=== PATIENT | male | born 1940 | race Caucasian/White ===

== ENCOUNTER 2019-11-22 07:15 | Outpatient (CLI) | payer MEDICARE, SELFPAY ==
[2019-11-22 08:17] LABS: Basophils Percent Auto 0.3 % (0.2-1.2); Eosinophils Absolute Auto 0.1 K/mm3 (0-0.3); Eosinophils Percent Auto 0.7 % (0-4.4); Hematocrit 37.3 % (42.0-52.0); Hemoglobin 11.8 g/dL (14.0-18.0); Immature Granulocyte Absolute 0.19 K/mm3 (0.00-0.031); Lymphocytes Absolute Auto 1.86 K/mm3 (0.9-3.2); Lymphocytes Percent Auto 19.6 % (18.3-44.2); Mean Corpuscular HGB Conc 31.6 g/dl (32-36); Mean Corpuscular Hemoglobin 31.3 pg (26-34); Mean Corpuscular Volume 98.9 fl (80-100); Mean Platelet Volume 10.3 fl (7.4-10.4); Monocytes Absolute Auto 0.7 K/mm3 (0.1-0.6); Monocytes Percent Auto 7.7 % (2.6-8.5); Neutrophils Absolute Auto 6.6 K/mm3 (1.3-6.7); Neutrophils Percent Auto 69.7 % (45.5-73.1); Platelet Count Result 171 k/mm3 (150-375); Red Blood Count 3.77 M/mm3 (4.6-6.20); Red Cell Distribution Width 15.2 % (11.5-14.5); White Blood Count 9.5 K/mm3 (4.5-10.0)
[2019-11-22 08:20] LABS: Add Urine Microscopic? NO; Appearance Urine Clear (Clear); Bilirubin Urine Negative (Negative); Blood Urine Negative (Negative); Color Urine Straw (Yellow); Glucose Urine UA Negative (Negative); Ketones Urine Negative (Negative); Leukocyte Esterase Ur Negative LEU/UL (Negative); Nitrate Urine Negative (Negative); Protein Urine Negative (Negative); Specific Grav Ur 1.014 (1.001-1.035); Urobilinogen Urine Negative mg/dL (<2.0)
[2019-11-22 08:34] LABS: Alanine Aminotransferase 20 U/L (4-50); Albumin Level 3.7 g/dL (3.5-5.1); Alkaline Phosphatase 90 U/L (38-126); Aspartate Amino Transferase 23 U/L (17-59); Bilirubin,Total 0.4 mg/dL (0.2-1.3); Blood Urea Nitrogen 29 mg/dL (9-20); Calcium 8.6 mg/dL (8.4-10.2); Carbon Dioxide 30 mmol/L (22-30); Chloride 97 mmol/L (98-107); Cholesterol 143 mg/dL (0-200); Estimated Glomerular Filt Rate 54; Glucose 107 mg/dL (75-110); HDL Direct 33 mg/dL; Phosphorus 3.7 mg/dL (2.5-4.5); Potassium 3.9 mmol/L (3.4-5.0); Sodium 140 mmol/L (137-145); Triglycerides 205 mg/dL (<150); Uric Acid 6.9 mg/dL (3.5-8.5)
[2019-11-22 08:41] LABS: Erythrocyte Sedimentation Rate 76 mm/hr (0-20)
[2019-11-22 08:45] LABS: LDL Cholesterol Direct 81 mg/dL
[2019-11-22 08:51] LABS: Creatinine Urine 57.7 mg/dL
[2019-11-22 08:55] LABS: MALB Creatinine Ratio 104.9 mg/g (0-30); Microalbumin Urine Random 60.5 mg/L (0-16.7)
[2019-11-22 09:07] LABS: Free T4 Free Thyroxine 0.74 ng/mL (0.78-2.19); Vitamin D 25 Hydroxy 56.3 ng/mL
[2019-11-22 09:37] LABS: Parathyroid Intact 51.1 pg/mL (7.5-53.5)
[2019-11-22 09:43] LABS: Folic Acid > 20.0 ng/mL (2.76->20)
== END 2019-11-22 07:16 | disposition home or self-care (01) ==
PROVIDERS: PCP Internal Medicine
DX: I12.9 Hypertensive chronic kidney disease with stage 1 through stage 4 chronic kidney disease, or unspecified chronic kidney disease (principal); D64.9 Anemia, unspecified; Z12.5 Encounter for screening for malignant neoplasm of prostate; N18.3 Chronic kidney disease, stage 3 (moderate); R60.9 Edema, unspecified; E55.9 Vitamin D deficiency, unspecified; N39.0 Urinary tract infection, site not specified; R73.09 Other abnormal glucose
CPT/HCPCS: 36415; 80053; 80061; 81003; 82043; 82306; 82607; 82746; 83036; 83970; 84100; 84439; 84443; 84550; 85025; 85652

== ENCOUNTER 2019-11-23 10:46 | Outpatient (CLI) | payer MEDICARE, SELFPAY ==
--- NOTE | ~2019-11-23 | XR_ITS ---
XR hand RT min 3V, XR hand LT min 3V 11/23/2019 11:38 Indication: Hand pain Procedure: 3 views of each hand Comparison: No prior studies for comparison. Findings: There is moderate polyarticular osteoarthritis of both hands. Osteopenia. No fracture or tr aumatic malalignment. No significant soft tissue abnormality. Impression: 1: Moderate polyarticular osteoarthritis. Reviewed, dictated and finalized at location B. [employer] Impression: 1: Moderate polyarticular osteoarthritis. Impression: 1: Moderate polyarticular osteoarthritis.
--- NOTE | ~2019-11-23 | MR_ITS ---
EXAMINATION: MR lumbar spine wo con DATE: 11/23/2019 11:37 INDICATION: Low back pain and bilateral hip pain TECHNIQUE: Magnetic resonance imaging (MRI) of the lumbar spine was performed without intravenous con trast. Sequences included sagittal T2-weighted FSE, sagittal T2-weighted FS FSE, sagittal T1-weighted FSE, and axial T2-weighted FSE. COMPARISON: Lumbar spine radiographs dated 08/13/2019 FINDINGS: 2 mm anterolisthesis L5 with respect to both L4 and S1. No associated pars interarticularis defect. C hronic L1 burst fracture with 3 mm retropulsion and 50% vertebral body height loss. There is mild linh ear increased T2 signal along the anterior two thirds of the depressed superior endplate which could represent more subacute progression. Remaining vertebral body heights are normal with otherwise amira l bone marrow signal. There is ballooning of the T12-L1 disc space. Moderate disc height loss at L5-S 1. Annular fissure at L4-L5 with relatively preserved disc height. The conus medullaris terminates at L1. There is normal signal in the caudal spinal cord. There is marrow edema at the left sacral ala a long a partially visualized now subacute to early chronic nondisplaced fracture which was noted on CT dated 09/28/2019. Mild bilateral renal atrophy. Paravertebral soft tissues are unremarkable. The follo wing disc levels are specifically discussed: T12-L1: Disc is mildly bulging. There is mild bilateral facet joint osteoarthritis. There is no neura l foraminal stenosis. There is mild central canal stenosis at the level of the disc bulge as well as more caudally at the level of the mild retropulsion of L1. L1-L2: Disc is bulging. There is hypertrophy of the ligamentum flavum. There is mild bilateral facet joint osteoarthritis. There is no neural foraminal stenosis. There is mild central canal stenosis. L2-L3: Disc is bulging. There is hypertrophy of the ligamentum flavum. There is mild bilateral facet joint osteoarthritis. There is mild bilateral neural foraminal stenosis. There is mild central canal stenosis. L3-L4: Disc is mildly bulging. There is hypertrophy of the ligamentum flavum. There is mild bilateral facet joint osteoarthritis. There is mild bilateral neural foraminal stenosis. There is mild central canal stenosis. L4-L5: Disc is mildly bulging with superimposed left paracentral annular fissure and disc protrusion. There is hypertrophy of the ligamentum flavum. There is mild left and mild to moderate right facet j oint osteoarthritis. There is mild right and moderate left neural foraminal stenosis. There is mild c entral canal stenosis along with narrowing of the lateral recesses, left greater than right. L5-S1: Broad-based disc extrusion with with disc material extending a few millimeters cephalad to the level of the inferior endplate of L5 from foraminal zone to foraminal zone. More focal posterior scarlett tral disc extrusion versus sequestered disc fragment extending up to 13 mm cephalad to the level of t he inferior endplate of L5 and measuring up to 11 x 7 mm in transaxial dimensions. There is moderate bilateral facet joint osteoarthritis. There is moderate bilateral neural foraminal stenosis. There is mild central canal stenosis along with mild narrowing of the left and right lateral recesses.. IMPRESSION: 1. Chronic L1 burst fracture, possibly with subacute progression of depression of the superior endpla te. 2. Subacute to early chronic nondisplaced fracture of the left sacral ala which appeared acute on CT dated 09/28/2019. 3. Mild to moderate lower lumbar predominant spondylosis. Reviewed, dictated and finalized at location A. [employer]
== END 2019-11-23 10:47 | disposition home or self-care (01) ==
LOC: ANHIMG 10:50
PROVIDERS: PCP Internal Medicine; Visit Provider Nurse Practitioner Family
DX: M19.041 Primary osteoarthritis, right hand (principal); M19.042 Primary osteoarthritis, left hand; M47.896 Other spondylosis, lumbar region
CPT/HCPCS: 72148; 73130

== ENCOUNTER 2020-02-08 10:47 | Inpatient (IN) | payer MEDICARE, SELFPAY ==
[2020-02-08] VITALS (45 sets, daily range): BP systolic 75–121; BP diastolic 46–84; PULSE 85–137; RESP 11–27; TEMP 36.3–36.9; O2SAT 88–100
--- NOTE | 2020-02-08 | ECHO_ITS ---
Patient Info Name: Art Sousa Age: 79 years : 1940 Gender: Male Ht: 72 in Wt: 200 lbs BSA: 2.16 m2 HR: 125 bpm BP: 98 / 71 mmHg Heart Rhythm: Tachycardia Technical Quality: Good Exam Date: 02/08/2020 3:59 PM Exam Location: [facility] Patient Status: Inpatient Admit Date: 02/08/2020 Staff Ordering Physician: Ion Maharaj MD Supervisor [employer]: Roque Reyes RDCS Attending Provider: Elder Keys MD Exam Type: CA echo doppler color flow Study Info Indications I21.4 - Non-ST elevation (NSTEMI) myocardial infarction Complete two-dimensional, color flow and Doppler transthoracic echocardiogram is performed. History/Risk Factors NSTEMI w/ CAD s/p 3vCABG \R\20years ago; CHF, CKD34, HTN, Afib. Summary 1. Left ventricular chamber dimension is normal. 2. Left ventricular systolic function is mildly reduced, estimated at 45-50%. 3. There is moderately increased left ventricular wall thickness. 4. The left ventricular diastolic function is abnormal. 5. The inferior wall, basal inferoseptal, and mid inferoseptal are akinetic. 6. All other naik appear normal. 7. Right ventricular chamber dimension is moderately enlarged. 8. Right ventricular systolic function is reduced. 9. Left atrial chamber dimension is mildly enlarged. 10. Right atrial chamber dimension is mildly enlarged. 11. 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 12. There is mild to moderate mitral valve regurgitation. 13. There is mild tricuspid valve regurgitation. 14. Mild pulmonary hypertension, estimated pulmonary arterial systolic pressure is 35 mmHg. Left Ventricle Left ventricular chamber dimension is normal. Left ventricular systolic function is mildly reduced, estimated at 45-50%. There is moderately increased left ventricular wall thickness. The left ventricular diastolic function is abnormal. The inferior wall, basal inferoseptal, and mid inferoseptal are akinetic. All other naik appear normal. Right Ventricle Right ventricular chamber dimension is moderately enlarged. Right ventricular systolic function is reduced. Left Atria Left atrial chamber dimension is mildly enlarged. Right Atria Right atrial chamber dimension is mildly enlarged. Atrial Septum Intact interatrial septum visualized by color flow imaging. 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 There is trace regurgitation of the TAVR aortic valve. Pulmonic Valve The pulmonic valve is normal. There is no pulmonic valve stenosis. There is trace pulmonic regurgitation. Mitral Valve The mitral valve has calcified annulus. There is no mitral valve stenosis. There is mild to moderate mitral valve regurgitation. Tricuspid Valve The tricuspid valve leaflets are normal. There is no significant tricuspid valve stenosis. There is mild tricuspid valve regurgitation. Mild pulmonary hypertension, estimated pulmonary arterial systolic pressure is 35 mmHg. Pericardium/Pleural The pericardium appears normal. There is no pericardial effusion. Inferior Vena Cava Dilated inferior vena cava with >50% collapse upon inspiration consistent with elevated right atrial pressure, 10 mmHg. Aorta The aortic root size at the sinus of Valsalva is normal. The prox ascending aorta size is normal.
--- NOTE | ~2020-02-08 | XR_ITS ---
XR chest 1V portable DATE: 02/08/2020 11:42 INDICATION: Chest pain TECHNIQUE: Portable AP chest views on 02/08/2020 1140 hours COMPARISON: 08/15/2019 AP and lateral chest FINDINGS: Status post sternotomy and cardiac valve replacement. Heart size is normal. There is aortic calcification and unfolding. There is discoid atelectasis or scarring and mild infiltrate in the left lower lung. There is volume loss of the left lung compared to the right and 08/15/2019 examination. The right lung is clear. Ther e is bilateral apical capping. Surgical clips overlie the cervical area bilaterally. IMPRESSION: Discoid scarring, atelectasis and/or infiltrate in the left lower lung Reviewed, dictated and finalized at location A. IMPRESSION: Discoid scarring, atelectasis and/or infiltrate in the left lower l acosta
--- NOTE | ~2020-02-08 | CT_ITS ---
EXAMINATION: CT brain wo con DATE: 02/08/2020 11:22 INDICATION: Generalized weakness. Confusion. TECHNIQUE: Computed tomography (CT) of the head was performed without intravenous contrast. The mA wa s adjusted according to patient size. Iterative reconstruction technique was employed. The dose-lengt h product was 681.00 mGy-cm. COMPARISON: Head CT 09/28/2019 FINDINGS: There are scattered areas of low attenuation in the cerebral white matter, which is within normal limits for the patient's age. There is an old lacunar infarct in left caudate nucleus. There i s no intracranial hemorrhage, acute infarction, or abnormal intracranial mass lesion. The ventricles are normal in size. The paranasal sinuses are clear. There are likely changes of ocular lens replacem ent surgeries. The mastoid air cells are normal. IMPRESSION: 1. Old lacunar infarct in left caudate nucleus. Reviewed, dictated and finalized at location E.
--- NOTE | 2020-02-08 11:02 | ECG_ITS ---
Measurements Intervals [place] Rate: 94 P: NM: 0 QRS: -68 QRSD: 155 T: 17 QT: 434 QTc: 545 Interpretive Statements ATRIAL FIBRILLATION RIGHT BUNDLE BRANCH BLOCK LEFT ANTERIOR FASCICULAR BLOCK ABNORMAL ECG Electronically Signed On 02-08-2020 11:31:58 CDT by Devin Hudson D.O.
--- NOTE | 2020-02-08 11:37 | ED.WEAKNESS ---
HPI - Weakness General Chief complaint: Weakness <Leilani Mayo PA-C - Last Filed: 02/08/20 19:03> Stated complaint: WEAKNESS <FILIPPO Brown Last Filed: 02/08/20 19:03> Time Seen by Provider: 02/08/20 11:29 <FILIPPO Brown Last Filed: 02/08/20 19:03> Source: patient <FILIPPO Brown Last Filed: 02/08/20 19:03> Mode of arrival: EMS <FILIPPO Brown Last Filed: 02/08/20 19:03> Limitations: clinical condition <FILIPPO Brown Last Filed: 02/08/20 19:03> History of Present Illness HPI Narrative: This is a 79 year old male that presents to the ER for chest pain x 1 hour. Per daughter patient was discharged from rehab facility yesterday after a fall. Reports he was able to get around with little assistance and was much improved. This morning patient became weak and lethargic. He complaints of chest pain and generalized weakness. Also complains of some low back pain due to a fracture in his low back. Denies fever, shortness of breath, abdominal pain, nausea or vomiting. <FILIPPO Brown Last Filed: 02/08/20 19:03> Related Data Home medications: Home Medications Medication Instructions Recorded Confirmed acetaminophen [Tylenol] 650 mg PO Q12H 02/08/20 02/08/20 atorvastatin 20 mg PO DAILY 02/08/20 02/08/20 ergocalciferol (vitamin D2) 1,250 mcg PO WEEKLY 02/08/20 02/08/20 [Vitamin D2] fenofibrate nanocrystallized 48 mg PO QPM 02/08/20 02/08/20 fludrocortisone 0.1 mg PO Q12H 02/08/20 02/08/20 hydrocodone-acetaminophen 1 tablet PO QID PRN 02/08/20 02/08/20 levothyroxine 25 mcg PO 0630 02/08/20 02/08/20 losartan 25 mg PO DAILY 02/08/20 02/08/20 megestrol 20 mg PO DAILY 02/08/20 02/08/20 potassium chloride 20 meq PO DAILY 02/08/20 02/08/20 propranolol 20 mg PO TID 02/08/20 02/08/20 <Leilani Mayo PA-C - Last Filed: 02/08/20 19:03> Allergies/Adverse reactions: Allergies Allergy/AdvReac Type Severity Reaction Status Date / Time Penicillins Allergy Unknown Rash Verified 02/08/20 11:44 <Leilani Mayo PA-C - Last Filed: 02/08/20 19:03> Review of Systems Review of Systems: Narrative: CONSTITUTIONAL: Denies fever ENT: Denies rhinorrhea, congestion, sore throat CARDIOVASCULAR: Reports chest pain. Denies palpitations, or edema. RESPIRATORY: Denies cough or dyspnea. GASTROINTESTINAL: Denies abdominal pain, nausea, vomiting GENITOURINARY: Denies dysuria or hematuria. MUSCULOSKELETAL: Reports back pain, joint pain, and myalgia. NEUROLOGIC: Reports weakness. Denies headache, numbness <FILIPPO Brown Last Filed: 02/08/20 19:03> All systems reviewed & are unremarkable except as noted in HPI and below <Leilani Mayo PA-C - Last Filed: 02/08/20 19:03> [facility] Past Medical History Medical History: Medical History Angina at rest Arthritis CAD (coronary artery disease) of artery bypass graft Cataracts, bilateral CHF (congestive heart failure) Chronic renal failure, stage 4 (severe) GERD (gastroesophageal reflux disease) GI bleed Gout Hyperchloremia Hyperlipidemia Hypertension Kidney stone Normal colonoscopy Sinus trouble Skin cancer <FILIPPO Brown Last Filed: 02/08/20 19:03> Surgical History Surgical History: Surgical History History of cardiac cath History of removal of pigmented skin lesion History of total replacement of both hip joints Hx of CABG 3 vessel S/P aortic valve replacement Stented coronary artery Multiple stents <FILIPPO Brown Last Filed: 02/08/20 19:03> Family History Family History: Family History Father Cerebrovascular accident Patient's father is Acute myocardial infarction Mother Family history of malignant neoplasm of ovary Patient's mother is
--- NOTE | 2020-02-08 11:37 | PC.NURSE ---
Talked to daughter Tracey on the phone. She states she is unsure of his code status and believes his 83 year old sister Sis is his POA. She states she will find out and call the ED back
[2020-02-08 11:41] LABS: Basophils Percent Auto 0.4 % (0.2-1.2); Eosinophils Absolute Auto 0.2 K/mm3 (0-0.3); Eosinophils Percent Auto 2.3 % (0-4.4); Hematocrit 30.7 % (42.0-52.0); Hemoglobin 9.6 g/dL (14.0-18.0); Immature Granulocyte Absolute 0.08 K/mm3 (0.00-0.031); Immature Granulocyte Percent A 0.9 % (0-0.5); Lymphocytes Absolute Auto 1.81 K/mm3 (0.9-3.2); Lymphocytes Percent Auto 20.2 % (18.3-44.2); Mean Corpuscular HGB Conc 31.3 g/dl (32-36); Mean Corpuscular Hemoglobin 30.7 pg (26-34); Mean Corpuscular Volume 98.1 fl (80-100); Mean Platelet Volume 10.1 fl (7.4-10.4); Monocytes Absolute Auto 0.7 K/mm3 (0.1-0.6); Monocytes Percent Auto 7.3 % (2.6-8.5); Neutrophils Absolute Auto 6.2 K/mm3 (1.3-6.7); Neutrophils Percent Auto 68.9 % (45.5-73.1); Platelet Count Result 238 k/mm3 (150-375); Red Blood Count 3.13 M/mm3 (4.6-6.20); Red Cell Distribution Width 16.3 % (11.5-14.5); White Blood Count 8.9 K/mm3 (4.5-10.0)
[2020-02-08 11:53] LABS: Alanine Aminotransferase 11 U/L (4-50); Albumin Level 2.9 g/dL (3.5-5.1); Alkaline Phosphatase 84 U/L (38-126); Aspartate Amino Transferase 102 U/L (17-59); Bilirubin,Total 0.9 mg/dL (0.2-1.3); Blood Urea Nitrogen 19 mg/dL (9-20); Calcium 8.8 mg/dL (8.4-10.2); Carbon Dioxide 31 mmol/L (22-30); Chloride 103 mmol/L (98-107); Estimated CRCL calculation 28 ml/min; Estimated Glomerular Filt Rate 29; Glucose 98 mg/dL (75-110); Potassium 3.1 mmol/L (3.4-5.0); Sodium 139 mmol/L (137-145)
[2020-02-08] MEDS: ASPIRIN 81 MG CHEWABLE TABLET 324 MG (12:21)
[2020-02-08] MEDS: METOPROLOL TARTRATE INJ 5 MG/5 ML VIAL (12:21)
[2020-02-08 12:32] LABS: Lactic Acid Reflex 1.3 mmol/L (0.7-2.1)
--- NOTE | 2020-02-08 12:36 | PC.NURSE ---
Called daughter Chanel to update her on fathers condition. Let her know that he needed to be taken to the floating labor gang supervisor per cardiology MD and obtained consent over the phone with the micro lab analyst RN. VSS and awake on departure from unit. Daughter states that his sister Sis has POA paperwork and DNR paperwork for pt. She will bring it to the hospital when she can. She understands that he will remain a full code while in the micro lab analyst until he is transferred to the ICU. She had no further questions at this time.
--- NOTE | 2020-02-08 13:53 | ECG_ITS ---
Measurements Intervals [place] Rate: 136 P: -70 [place]: 187 QRS: -79 QRSD: 149 T: 78 QT: 274 QTc: 413 Interpretive Statements ATRIAL FIBRILLATION WITH RAPID VENTRICULAR RESPONSE LEFT AXIS DEVIATION RIGHT BUNDLE BRANCH BLOCK LEFT ANTERIOR FASCICULAR BLOCK ST DEPRESSION IN SEPTAL LEADS- CONSIDER ACUTE POSTERIOR INFARCT ABNORMAL ECG Electronically Signed On 02-09-2020 7:31:17 CDT by Devin Hudson D.O.
--- NOTE | 2020-02-08 14:08 | WPDCARDPROC ---
Cardiac Cath Procedure Note Date of procedure:: 02/08/20 Performing physician:: Elder Keys MD Indication:: chest pain, acute posterior infarction Brief clinical history:: this is a 79-year-old patient who has a longstanding history of coronary disease undergoing surgical revascularization 20 years ago. Since then he has had a series of percutaneous interventions including left main stenting, mid circumflex stenting, stenting of his RCA saphenous vein graft. He was previously followed by our practice and has not been seen by our practice for a number of years. He has a history of aortic valve stenosis which was moderate the time of his last evaluation here at [facility]. The patient began to experience ischemic chest pain about 60-90 minutes he says before coming into the hospital today where his ECG demonstrates right bundle branch block which is chronic as well as severe precordial ST depression indicative of acute posterior injury L also he has atrial fibrillation when previous ECGs demonstrate sinus rhythm. Procedure Procedure performed:: Emergency coronary angiography emergency vein graft angiography emergency rahman graft angiography attempted PCI to right coronary vein graft Sedation/Medication given:: no sedation Access site:: right femoral artery Estimated blood loss:: 20-30 cc Procedure note:: patient was brought to the catheterization lab in the urgent setting as described above from the emergency department. The femoral triangles were prepped and draped in the usual fashion. Anesthesia was provided with 1% lidocaine infiltrated locally after this a 6 Prydeinig vascular sheath was placed using the modified Seldinger technique. Following this a 5 Prydeinig FL4 catheter was used to engage inject the left coronary artery in multiple projections. The JR4 catheter was used to inject the right coronary artery as well as the vein grafts. This was unsuccessful. The right coronary artery is known to be chronically occluded from previous angiography and appears to be behind the cage of the previously placed TAVR valve. We have no records or knowledge of the TAVR procedure. Following this I used a multipurpose catheter to inject the right coronary and circumflex vein grafts. The NADEEN catheter was used to non selectively inject the left subclavian artery studying the low flow in the left mammary graft. Following this attention was turned to the right coronary vein graft as detailed below. Prior to attempted PCI the patient received intravenous Angiomax bolus and infusion and received intravenous Integrilin bolus and infusion. Following attempted but unsuccessful PCI of the right coronary graft I switched the sheath O2 a 6 Prydeinig long sheath because of poor arterial flow in the sheath and then sutured it into position. The Angiomax and Integrilin were turned off as the PCI was unsuccessful. Patient was taken to ICU for recovery of this. There were no procedural complications that were apparent. Findings:: The left main coronary artery is a medium in caliber there is visible stent material in the left main it is mildly diffusely diseased throughout but does not appear to have any flow-limiting stenosis. The LAD is a small diffusely diseased artery that is patent into 2 small diseased diagonal branches. Following this there is competitive flow seen in the mid to distal LAD from the RAHMAN graft The circumflex is a medium caliber diffusely diseased artery there is mid stent material visible in the circumflex. There is mild diffuse disease throughout the circumflex but no significant flow-limiting disease. Saphenous vein graft to the circumflex is 100% occluded at its origin, known to be a chronic total occlusion saphenous vein graft to the right coronary artery is 100% occluded at its origin appears to be a more acute occlusion there is long area of previously deployed stent material in the proximal and distal segments of this graft. Again there is T
--- NOTE | 2020-02-08 14:22 | PM.IMHP ---
H&P: HPI History of Present Illness Chief complaint: NSTEMI Narrative: Art Sousa is a 79 year old male who has an extensive history of heart disease but who I have never been involved in his care in the past. I was called to the emergency room this afternoon because the patient presented with chest pain and the appearance of his electrocardiogram was suspicious for an acute posterior infarction. The patient is not a very good historian but states that he was at home in his usual state of health when suddenly the this morning he began to experience moderate to severe retrosternal chest pain that was concerning to him and his family. He was brought to the emergency room where his ECG shows atrial fibrillation, right bundle branch block and relatively intense precordial ST segment depression. Electrocardiograms that are in this hospital's records from up September of this year demonstrates sinus rhythm plus the right bundle branch block as well. The patient a response to questions appropriately but does seem to be very blunted in his a fact and not very informative at all in terms of the details of his previous history. Because of the acute ischemic chest pain and acute posterior infarction based on ECG he is being brought emergently in a short time to the cardiac catheterization lab for angiography and attempted revascularization Review of Systems Constitutional: Constitutional: Reports weakness Eyes: Eyes: Reports no additional eye complaints ENT: Reports system reviewed and no additional complaints, except as documented Cardiovascular: Cardiovascular: Reports as per HPI Respiratory: Respiratory: Reports dyspnea on exertion Gastrointestinal: Gastrointestinal: Reports no additional gastrointestinal complaints Musculoskeletal: Musculoskeletal: Reports no additional musculoskeletal complaints Integumentary/Breasts: Skin/Breast: Reports system reviewed and no additional complaints, except as docu Neurologic: Reports system reviewed and no additional complaints, except as documented [facility] Social History Social History Social History: Currently lives with his sister who is durable power assistant district attorney. He is . He had been living with a significant other in [place] but she has recently been diagnosed with terminal cancer. The patient decided to move back in with his sister as he is not able to take care for self. He designates himself to be a full code Smoking packs per day: 2 Smoking cigarettes per day: 40.0 Years smoked: 24 Smoking pack-years: 48.00 Smoking status: Former smoker Tobacco type: cigarettes Second hand tobacco smoke exposure: Yes Alcohol intake: former Substance use: never Substance use type: does not use Additional living arrangements comments: Sister Additional occupation/education comments: [employer] in [place] Gender identity (if verbalized by the patient): Male Spiritual care concerns: No Agree to blood products: Yes Meds Home Medications and Allergies Home Medications Medication Instructions Recorded Confirmed Type allopurinol 100 mg tablet 100 mg PO DAILY #30 tablet 09/15/19 09/28/19 Rx folic acid 1 mg tablet 1 mg PO DAILY #30 tablet 09/15/19 09/28/19 Rx gabapentin 100 mg capsule 100 mg PO TID #90 cap 09/15/19 09/28/19 Rx nitroglycerin 0.4 mg SUBLINGUAL Q5M PRN 09/29/19 09/29/19 History polyethylene glycol 3350 [Miralax] 17 g PO DAILY PRN 09/29/19 09/29/19 History prednisone 10 mg PO DAILY 09/29/19 09/29/19 History sodium bicarbonate 650 mg PO BID 09/29/19 09/29/19 History tramadol 50 mg PO Q6H PRN 09/29/19 09/29/19 History fludrocortisone 0.1 mg PO DAILY #30 tablet 10/04/19 Rx Allergies Allergy/AdvReac Type Severity Reaction Status Date / Time Penicillins Allergy Unknown Rash Verified 02/08/20 11:44 Vital Signs Vital Signs - 24 hr 02/08/20 10:56 02/08/20 11:37 02/08/20 12:00 Temperature 36
--- NOTE | 2020-02-08 14:54 | WPDCNINT ---
Assessment and Plan Assessment and plan (1) NSTEMI (non-ST elevated myocardial infarction): Code(s): I21.4 - Non-ST elevation (NSTEMI) myocardial infarction Status: Acute Assessment and Plan: patient has complicated history of coronary artery disease with multiple PCIs and CABG in the past presented with chest pain and elevated troponin likely had inferior non STEMI now status post unsuccessful PCI attempt to RCA ICU monitor dual antiplatelet therapy statin check echo (2) CAD (coronary artery disease): Code(s): I25.10 - Atherosclerotic heart disease of [place] coronary artery without angina pectoris Status: Acute Assessment and Plan: see above (3) Cerebrovascular disease: Code(s): I67.9 - Cerebrovascular disease, unspecified Status: Acute Assessment and Plan: patient will be on dual antiplatelet therapy and statin CT shows old CVA patient appears to have vascular dementia although does need further evaluation (4) Atrial fibrillation: Code(s): I48.91 - Unspecified atrial fibrillation Status: Acute Assessment and Plan: chronicity unknown rate controlled with beta-adwoa at this time may need continuous infusion on antiplatelet therapy cardiology plans to start anticoagulation tomorrow check echocardiogram (5) Aortic stenosis: Code(s): I35.0 - Nonrheumatic aortic (valve) stenosis Status: Acute Assessment and Plan: status post TAVR. details are not available echo pending (6) CKD (chronic kidney disease) stage 4, GFR 15-29 ml/min: Code(s): N18.4 - Chronic kidney disease, stage 4 (severe) Status: Acute Assessment and Plan: start IV fluids for renal protection from the contrast he received with cardiac catheterization continue p.o. bicarb (7) Hypokalemia: Code(s): E87.6 - Hypokalemia Status: Acute Assessment and Plan: replace with p.o. KCl (8) Gout: Code(s): M10.9 - Gout, unspecified Status: Chronic Assessment and Plan: continue PO allopurinol and prednisone p.r.n. analgesic Additional Plan DVT prophylaxis - start heparin from tomorrow patient has received anticoagulation today doing the procedure Code Status - Full Code Traffic Control Officer Consult Note Consult date: 02/08/20 Time Seen: 14:45 HPI: Art Sousa is a 79 year old male with with complicated past medical history of coronary disease status post multiple PCI, CABG, TAVR for aortic stenosis and bilateral carotid endarterectomy presented today to ED with chief complaint of chest pain. Patient is cognitively slow and is poor historian. in ED patient was diagnosed with non STEMI and atrial fibrillation. Patient was taken to [facility] where he had unsuccessful attempt of PCI to RCA. patient now admitted to ICU for further evaluation management. patient at this time denies any chest pain or any new complaints and only complaint he has is of chronic joint pains from his arthritis. he told me the chest pain was in the middle of his chest, 10/10 severe, no radiation, has resolved now, no aggravating or relieving factors at that time, and was associated with dizziness. Review of Systems Review of Systems: ROS unobtainable: Yes unobtainable due to medical condition (PATIENT IS CONFUSED AND UNABLE TO PROVIDE DETAILED HISTORY) PMFSH Past Medical History Medical History Angina at rest Arthritis CAD (coronary artery disease) of artery bypass graft Cataracts, bilateral CHF (congestive heart failure) Chronic renal failure, stage 4 (severe) GERD (gastroesophageal reflux disease) GI bleed Gout Hyperchloremia Hyperlipidemia Hypertension Kidney stone Normal colonoscopy Sinus trouble Skin cancer Surgical History Surgical History History of cardiac cath History of removal of pigment
--- NOTE | 2020-02-08 15:03 | ADMGEN ---
This patient, Art Sousa, was admitted to Intensive Care Unit-7. Patient/family oriented to hospital policies and general routines including ID bracelet, bed and alarms, visiting hours, pain management, procedures, bathroom and other care routines, personal items, smoking policy, room service/diet, and visiting hours. Valuables list has been completed. Information on how to activate the Rapid Response Team has been discussed. Patient/Family are encouraged to report perceived risks to care and to ask questions if they do not understand what they are told or what they should do.
[2020-02-08 15:33] LABS: Magnesium 1.9 mg/dL (1.6-2.3)
--- NOTE | 2020-02-08 17:06 | PC.NURSE ---
R GROIN DRESSING AND R PEDAL PULSE CHECK COMPLETED POST SHEATH REMOVAL; REPORT GIVEN TO TAMMY BROOKS;
[2020-02-08] MEDS: POTASSIUM CHLORIDE 20 MEQ TABLET 40 MEQ PO (19:52)
[2020-02-08] MEDS: SODIUM BICARBONATE TAB 650 MG TABLET PO (19:53)
[2020-02-08] MEDS: METOPROLOL TARTRATE 25 MG TABLET PO (19:53)
[2020-02-08] MEDS: SODIUM CHLORIDE 0.9% IV 1,000 ML 100 ML IV CONT (20:01)
[2020-02-09] VITALS (72 sets, daily range): BP systolic 61–130; BP diastolic 35–70; PULSE 26–122; RESP 13–27; TEMP 36.3–36.9; O2SAT 91–98; BMI 27.2
[2020-02-09] MEDS: METOPROLOL TARTRATE 25 MG TABLET PO (01:24)
--- NOTE | 2020-02-09 05:11 | ECG_ITS ---
Measurements Intervals [place] Rate: 93 P: -78 DC: 114 QRS: -64 QRSD: 156 T: 44 QT: 410 QTc: 512 Interpretive Statements SINUS RHYTHM RIGHT BUNDLE BRANCH BLOCK LEFT ANTERIOR FASCICULAR BLOCK ST DEPRESSION IN SEPTAL LEADS- CONSIDER ACUTE POSTERIOR INFARCT ST ELEVATION IN INFERIOR LEADS- CONSIDER ACUTE INJURY BASELINE ARTIFACT- I, II, AVR, AVL ABNORMAL ECG Electronically Signed On 02-09-2020 7:33:45 CDT by Devin Hudson D.O.
--- NOTE | 2020-02-09 05:26 | ECG_ITS ---
Measurements Intervals [place] Rate: 58 P: AL: 0 QRS: -61 QRSD: 152 T: -12 QT: 491 QTc: 484 Interpretive Statements SINUS BRADYCARDIA RIGHT BUNDLE BRANCH BLOCK LEFT ANTERIOR FASCICULAR BLOCK ST DEPRESSION IN SEPTAL LEADS- CONSIDER ACUTE POSTERIOR INFARCT ST ELEVATION IN INFERIOR LEADS- CONSIDER ACUTE INJURY BASELINE ARTIFACT- V5-V6 ABNORMAL ECG Electronically Signed On 02-09-2020 7:35:35 CDT by Devin Hudson D.O.
[2020-02-09 05:27] LABS: Hematocrit 26.9 % (42.0-52.0); Hemoglobin 8.3 g/dL (14.0-18.0); Mean Corpuscular HGB Conc 30.9 g/dl (32-36); Mean Corpuscular Hemoglobin 30.6 pg (26-34); Mean Corpuscular Volume 99.3 fl (80-100); Mean Platelet Volume 10.6 fl (7.4-10.4); Platelet Count Result 221 k/mm3 (150-375); Red Blood Count 2.71 M/mm3 (4.6-6.20); Red Cell Distribution Width 16.3 % (11.5-14.5); White Blood Count 8.4 K/mm3 (4.5-10.0)
[2020-02-09 05:36] LABS: Alanine Aminotransferase 11 U/L (4-50); Albumin Level 2.7 g/dL (3.5-5.1); Alkaline Phosphatase 81 U/L (38-126); Aspartate Amino Transferase 102 U/L (17-59); Bilirubin,Total 0.8 mg/dL (0.2-1.3); Blood Urea Nitrogen 21 mg/dL (9-20); Calcium 8.7 mg/dL (8.4-10.2); Carbon Dioxide 27 mmol/L (22-30); Chloride 108 mmol/L (98-107); Estimated CRCL calculation 36 ml/min; Estimated Glomerular Filt Rate 39; Glucose 99 mg/dL (75-110); Magnesium 1.9 mg/dL (1.6-2.3); Potassium 3.4 mmol/L (3.4-5.0); Sodium 140 mmol/L (137-145)
--- NOTE | 2020-02-09 05:53 | PC.NURSE ---
At 0521 Patient had a pause with Marked bradycardia in the 20's and 30's Patient was responsive yet drowsy. Also marked hypotension. 0.5mg of atropine was given. Patient Rebounded to 50's bradycardia. EKG given. Still marked hypotension. Dr. Quintanilla was notified. Patient is alert yet drowsy. Start dopamine at 3mcg/kg/min. Continue to monitor. 6am Lopressor held.
[2020-02-09] MEDS: DOPamine 400 MG/D5W 250 ML 400 MG/250 ML BAG 10.3 MG IV CONT (05:58)
[2020-02-09] MEDS: ATROPINE SULFATE 1 MG/10 ML SYRINGE 0.5 MG IV PUSH (05:58)
[2020-02-09] MEDS: SODIUM BICARBONATE TAB 650 MG TABLET PO ×2 (08:35→17:52)
[2020-02-09] MEDS: CLOPIDOGREL BISULFATE 75 MG TABLET PO (08:36)
[2020-02-09] MEDS: FLUDROCORTISONE ACETATE 0.1 MG TABLET PO (08:36)
[2020-02-09] MEDS: ASPIRIN 81 MG CHEWABLE TABLET PO (08:36)
[2020-02-09] MEDS: ROSUVASTATIN 10 MG TABLET 20 MG PO (08:36)
[2020-02-09] MEDS: predniSONE 10 MG TABLET PO (08:36)
[2020-02-09] MEDS: FOLIC ACID 1 MG TABLET PO (08:36)
[2020-02-09] MEDS: allopurinoL 100 MG TABLET PO (08:36)
--- NOTE | 2020-02-09 08:45 | WPDINTPN ---
Progress Note: A&P Assessment and Plan (1) Bradycardia: Code(s): R00.1 - Bradycardia, unspecified Status: Acute Assessment and Plan: patient had a long pause and followed by symptomatic junctional bradycardia. patient has been atrial fibrillation since yesterday patient was given a dose of atropine overnight and started on low-dose dopamine drip beta-adwoa has been stopped heart rate and blood pressure adequate at this time discussed with cardiology and dopamine stopped and will monitor at this time. if bradycardia recurs will resume dopamine and Cardiology will then plan to place permanent pacemaker tomorrow. continue telemetry monitoring in ICU replaced low normal potassium (2) NSTEMI (non-ST elevated myocardial infarction): Code(s): I21.4 - Non-ST elevation (NSTEMI) myocardial infarction Status: Acute Assessment and Plan: patient has complicated history of coronary artery disease with multiple PCIs and CABG in the past presented with chest pain and elevated troponin likely had inferior non STEMI now status post unsuccessful PCI attempt to RCA ICU monitor dual antiplatelet therapy statin pending echo (3) CAD (coronary artery disease): Code(s): I25.10 - Atherosclerotic heart disease of [place] coronary artery without angina pectoris Status: Acute Assessment and Plan: see above (4) Cerebrovascular disease: Code(s): I67.9 - Cerebrovascular disease, unspecified Status: Acute Assessment and Plan: patient will be on dual antiplatelet therapy and statin CT shows old CVA patient appears to have vascular dementia although does need further evaluation (5) Atrial fibrillation: Code(s): I48.91 - Unspecified atrial fibrillation Status: Acute Assessment and Plan: chronicity unknown rate controlled with beta-adwoa at this time may need continuous infusion on antiplatelet therapy anticoagulation held at this time as there may be need for permanent pacemaker placement pending echocardiogram (6) Aortic stenosis: Code(s): I35.0 - Nonrheumatic aortic (valve) stenosis Status: Acute Assessment and Plan: status post TAVR. details are not available echo pending (7) CKD (chronic kidney disease) stage 4, GFR 15-29 ml/min: Code(s): N18.4 - Chronic kidney disease, stage 4 (severe) Status: Acute Assessment and Plan: patient was started ont IV fluids for renal protection from the contrast he received with cardiac catheterization. he is off IV fluids now continue p.o. bicarb (8) Hypokalemia: Code(s): E87.6 - Hypokalemia Status: Acute Assessment and Plan: replace with p.o. KCl (9) Gout: Code(s): M10.9 - Gout, unspecified Status: Chronic Assessment and Plan: continue PO allopurinol and prednisone p.r.n. analgesic Additional Plan DVT prophylaxis - start heparin subcutaneous Code Status - Full Code Total Critical Care Time - 30 minutes Due to a high probability of clinically significant, life threatening deterioration, the patient required my highest level of preparedness to intervene emergently and I personally spent this critical care time directly and personally managing the patient. This critical care time included obtaining a history; examining the patient; pulse oximetry; ordering and review of studies; arranging urgent treatment with development of a management plan; evaluation of patient's response to treatment; frequent reassessment; and discussions with other providers. It was exclusive of separately billable procedures and treating other patients and teaching time. Please see Assessment and Plan section and the rest of the note for further information on patient assessment and treatment Subjective Date/time seen: 02/09/20 0845 Overnight events reviewed. patient had episode of sinus pause and junctional Samuel and r
--- NOTE | 2020-02-09 08:52 | PM.PNCARD ---
Progress Note: A&P Assessment and Plan (1) STEMI (ST elevation myocardial infarction): Code(s): I21.3 - ST elevation (STEMI) myocardial infarction of unspecified site Status: Acute Assessment and Plan: severe multivessel coronary artery disease with acute posterior inferior infarction due to occlusion of the right coronary vein graft which was known to be severely disease for many years having been stented on 2 occasions in the past in and 2010. Despite crossing the proximal occlusion this graft with the whisper wire and making a series of balloon inflations along its entire length there was no religious of any antegrade flow in the vessel. Mildly diseased but patent left main which has been stented in the past high-grade stenosis in the proximal LAD with patent RAHMAN graft to the mid to distal LAD. Mild diffuse disease throughout the circumflex which has also been stented in the past chronic total occlusion of the vein graft to the circumflex chronic total occlusion of the [place] right coronary artery. Continue statin. Unable to continue beta-adwoa because of sinus pauses. Unable to add JOSH-inhibitor because of low blood pressure. Ejection fraction estimated at 45%. continue aspirin Plavix. (2) Atrial fibrillation: Code(s): I48.91 - Unspecified atrial fibrillation Status: Acute Assessment and Plan: Currently in sinus rhythm. (3) Aortic stenosis: Code(s): I35.0 - Nonrheumatic aortic (valve) stenosis Status: Acute Assessment and Plan: Patient had TAVR in the past and echocardiogram shows normal functioning aortic valve. (4) Sinus pause: Code(s): I45.5 - Other specified heart block Status: Acute Assessment and Plan: Sinus pause of 5 seconds requiring atropine. Last metoprolol dosage 25 mg was at 1:00 a.m. this morning. patient was started on dopamine 4 micrograms. will hold the dopamine for now. if there is recurrence of pause,then consider pacemaker. Subjective Date/time seen: date of service:02/09/20 08:52 chief complaint: chest pain denies chest pain this morning. had a long pause of 5 seconds at 5:00 a.m. this morning. Currently in sinus rhythm. Review of Systems Constitutional: Constitutional: Denies chills, Denies fever(s) and Reports poor appetite Eyes: Eyes: Denies eye discharge, Denies loss of vision, Denies eye pain and Denies photophobia ENT: Denies dizziness, Denies epistaxis, Denies nasal congestion and Denies sore throat Cardiovascular: Cardiovascular: Denies chest pain, Denies syncope, Denies pedal edema, Denies leg edema, Denies palpitations, Denies dyspnea, Denies dyspnea on exertion and Denies orthopnea Respiratory: Respiratory: Denies cough, Denies dyspnea, Denies dyspnea on exertion and Denies wheezing Gastrointestinal: Gastrointestinal: Denies abdominal pain, Denies diarrhea, Denies nausea and Denies vomiting Genitourinary: Genitourinary: Denies hematuria, Denies genital lesions and Denies dysuria Musculoskeletal: Musculoskeletal: Denies arthralgias, Denies joint swelling and Denies numbness Integumentary/Breasts: Skin/Breast: Denies pruritus and Denies rash Neurologic: Denies dizziness, Denies syncope, Denies loss of vision and Denies numbness Psychiatric: Psychiatric: Denies anxiety and Denies depression Endocrine: Endocrine: Denies cold intolerance, Denies heat intolerance and Denies palpitations Hematologic/Lymphatic: Hematologic/Lymphatic: Denies easy bleeding and Denies easy bruising Allergic/Immunologic: Allergic/Immunologic: Denies urticaria and Denies wheezing Exam Const: General: cooperative, comfortable, no acute distress, alert and awake Nutritional Appearance: well nourished Orientation/consciousness: patient oriented x3 HENMT: Head: normal to inspection, normocephalic and atraumatic Ears: hearing grossly impaired General nose exam: Normal external nose present, Normal nares p
[2020-02-09] MEDS: POTASSIUM CHLORIDE 20 MEQ TABLET 40 MEQ PO (14:32)
[2020-02-09] MEDS: SODIUM CHLORIDE 0.9% IV 1,000 ML 75 ML IV CONT (17:52)
--- NOTE | 2020-02-09 19:00 | PC.NURSE ---
Patient bladder scanned at 1430. Scan showed 352mL. Patient urinated 150mL and post void bladder scan was 227mL. Jo Pruitt made aware and started IV fluids for patient.
[2020-02-10] VITALS (19 sets, daily range): BP systolic 87–143; BP diastolic 48–87; PULSE 38–57; RESP 14–24; TEMP 36.4–36.7; O2SAT 9–99
[2020-02-10 04:56] LABS: Hematocrit 24.4 % (42.0-52.0); Hemoglobin 7.6 g/dL (14.0-18.0); Mean Corpuscular HGB Conc 31.1 g/dl (32-36); Mean Corpuscular Hemoglobin 30.4 pg (26-34); Mean Corpuscular Volume 97.6 fl (80-100); Mean Platelet Volume 10.2 fl (7.4-10.4); Platelet Count Result 180 k/mm3 (150-375); Red Cell Distribution Width 16.5 % (11.5-14.5)
[2020-02-10 05:05] LABS: Alanine Aminotransferase 13 U/L (4-50); Albumin Level 2.9 g/dL (3.5-5.1); Alkaline Phosphatase 81 U/L (38-126); Aspartate Amino Transferase 70 U/L (17-59); Bilirubin,Total 0.6 mg/dL (0.2-1.3); Blood Urea Nitrogen 25 mg/dL (9-20); Calcium 8.5 mg/dL (8.4-10.2); Carbon Dioxide 27 mmol/L (22-30); Chloride 109 mmol/L (98-107); Estimated CRCL calculation 32 ml/min; Estimated Glomerular Filt Rate 35; Glucose 113 mg/dL (75-110); Potassium 3.7 mmol/L (3.4-5.0); Sodium 140 mmol/L (137-145)
[2020-02-10] MEDS: SODIUM CHLORIDE 0.9% IV 1,000 ML 75 ML IV CONT ×2 (06:28→20:16)
[2020-02-10] MEDS: ASPIRIN 81 MG CHEWABLE TABLET PO (09:47)
[2020-02-10] MEDS: CLOPIDOGREL BISULFATE 75 MG TABLET PO (09:48)
[2020-02-10] MEDS: allopurinoL 100 MG TABLET PO (09:48)
[2020-02-10] MEDS: predniSONE 10 MG TABLET PO (09:49)
[2020-02-10] MEDS: ROSUVASTATIN 10 MG TABLET 20 MG PO (09:49)
[2020-02-10] MEDS: FOLIC ACID 1 MG TABLET PO (09:50)
[2020-02-10] MEDS: FLUDROCORTISONE ACETATE 0.1 MG TABLET PO (09:50)
[2020-02-10] MEDS: SODIUM BICARBONATE TAB 650 MG TABLET PO ×2 (09:51→17:59)
--- NOTE | 2020-02-10 09:58 | WPDINTPN ---
Progress Note: A&P Assessment and Plan (1) Bradycardia: Code(s): R00.1 - Bradycardia, unspecified Status: Acute Assessment and Plan: patient had a long pause and followed by symptomatic junctional bradycardia. patient has been atrial fibrillation on 02/08/2020. - patient was given a dose of atropine On 02/08/2028 started on dopamine which currently is off - beta-blockers have been Discontinued due to nae - currently heart rates in upper 50s, sinus bradycardia - discussed with cardiology, the SA node may be recovering, cardiology holding off the pacemaker at this time - cardiology was okay to to transfer the patient to intermediate unit and continue tele monitoring (2) NSTEMI (non-ST elevated myocardial infarction): Code(s): I21.4 - Non-ST elevation (NSTEMI) myocardial infarction Status: Acute Assessment and Plan: patient has complicated history of coronary artery disease with multiple PCIs and CABG in the past - presented with chest pain and elevated troponin likely had inferior non STEMI - now status post unsuccessful PCI attempt to RCA - dual antiplatelet therapy - statin - echocardiogram on 02/08/2020 showed LVEF of 45-50%, LV diastolic function is abnormal, inferior wall, basal inferior septal and mid inferior septal akinetic, RV chamber moderately enlarged. LV systolic function is reduced. there is a mild TAVR valve stenosis. mild to moderate mitral valve regurgitation, mild pulmonary hypertension with RVSP of 35 mmHg - cardiology following the patient closely (3) CAD (coronary artery disease): Code(s): I25.10 - Atherosclerotic heart disease of [place] coronary artery without angina pectoris Status: Acute Assessment and Plan: see above (4) Cerebrovascular disease: Code(s): I67.9 - Cerebrovascular disease, unspecified Status: Acute Assessment and Plan: patient will be on dual antiplatelet therapy and statin - CT shows old CVA - patient appears to have vascular dementia although does need further evaluation (5) Atrial fibrillation: Code(s): I48.91 - Unspecified atrial fibrillation Status: Acute Assessment and Plan: chronicity unknown - currently in sinus bradycardia - on antiplatelet therapy - patient may require full anticoagulation, with the caveat that is hemoglobin dropped from 9.6 at admission to 7.6 on 02/10/2020 (6) Aortic stenosis: Code(s): I35.0 - Nonrheumatic aortic (valve) stenosis Status: Acute Assessment and Plan: status post TAVR. details are not available echo as above (7) CKD (chronic kidney disease) stage 4, GFR 15-29 ml/min: Code(s): N18.4 - Chronic kidney disease, stage 4 (severe) Status: Acute Assessment and Plan: patient was started ont IV fluids for renal protection from the contrast he received with cardiac catheterization. - continue p.o. bicarb - continue IV fluids per Cardiology (8) Hypokalemia: Code(s): E87.6 - Hypokalemia Status: Acute Assessment and Plan: will maintain potassium levels > 4.0 - will replace potassium (9) Gout: Code(s): M10.9 - Gout, unspecified Status: Chronic Assessment and Plan: continue PO allopurinol and prednisone p.r.n. analgesic Additional Plan cardiology and myself discussed with the patient regarding his condition and plan of care. He is aware that he will be transferring out to IMU, does not require a pacemaker at this time, will continue to keep him on tele monitor to evaluate is heart rates. DVT prophylaxis - start heparin subcutaneous Code Status - Full Code Total Critical Care Time - 32 minutes Due to a high probability of clinically significant, life threatening deterioration, the patient required my highest level of preparedness to intervene emergently and I personally spent this critical care time directly and personall
--- NOTE | 2020-02-10 10:10 | PM.PNCARD ---
Progress Note: A&P Assessment and Plan (1) STEMI (ST elevation myocardial infarction): Code(s): I21.3 - ST elevation (STEMI) myocardial infarction of unspecified site Status: Acute Assessment and Plan: severe multivessel coronary artery disease with acute posterior inferior infarction due to occlusion of the right coronary vein graft which was known to be severely disease for many years having been stented on 2 occasions in the past in and 2010. Despite crossing the proximal occlusion this graft with the whisper wire and making a series of balloon inflations along its entire length there was no voodoo of any antegrade flow in the vessel. Mildly diseased but patent left main which has been stented in the past high-grade stenosis in the proximal LAD with patent RAHMAN graft to the mid to distal LAD. Mild diffuse disease throughout the circumflex which has also been stented in the past chronic total occlusion of the vein graft to the circumflex chronic total occlusion of the [place] right coronary artery. Continue statin. Unable to continue beta-adwoa because of sinus pauses. Unable to add JOSH-inhibitor because of low blood pressure. Ejection fraction estimated at 45%. continue aspirin Plavix., statin. Discontinue dopamine. (2) Atrial fibrillation: Code(s): I48.91 - Unspecified atrial fibrillation Status: Acute Assessment and Plan: Currently in sinus rhythm. (3) Aortic stenosis: Code(s): I35.0 - Nonrheumatic aortic (valve) stenosis Status: Acute Assessment and Plan: Patient had TAVR in the past and echocardiogram shows normal functioning aortic valve. (4) Sinus pause: Code(s): I45.5 - Other specified heart block Status: Acute Assessment and Plan: No need for pacemaker at this point Okay to transfer to [facility] Subjective Date/time seen: 02/10/20 10:11 Interval history: Reason for admission: Chief complaint: STEMI Date of service 02/10/2020: He is doing better. No chest pain or shortness of breath. Anxious to go home. Heart rhythm is generally sinus bradycardia in the 50s. A few junctional beats yesterday evening/last night Review of Systems Constitutional: Constitutional: Denies chills, Denies fever(s), Reports poor appetite and Reports weakness Eyes: Eyes: Reports no additional eye complaints, Denies eye discharge, Denies loss of vision, Denies eye pain and Denies photophobia ENT: Reports system reviewed and no additional complaints, except as documented, Denies dizziness, Denies epistaxis, Denies nasal congestion and Denies sore throat Cardiovascular: Cardiovascular: Reports as per HPI, Denies chest pain, Denies syncope, Denies pedal edema, Denies leg edema, Denies palpitations, Denies dyspnea, Denies dyspnea on exertion and Denies orthopnea Respiratory: Respiratory: Denies cough, Denies dyspnea, Denies dyspnea on exertion and Denies wheezing Gastrointestinal: Gastrointestinal: Reports no additional gastrointestinal complaints, Denies abdominal pain, Denies diarrhea, Denies nausea and Denies vomiting Genitourinary: Genitourinary: Denies hematuria, Denies genital lesions and Denies dysuria Musculoskeletal: Musculoskeletal: Reports no additional musculoskeletal complaints, Denies arthralgias, Denies joint swelling and Denies numbness Integumentary/Breasts: Skin/Breast: Reports system reviewed and no additional complaints, except as docu, Denies pruritus and Denies rash Neurologic: Reports system reviewed and no additional complaints, except as documented, Denies dizziness, Denies syncope, Denies loss of vision, Denies numbness and Reports weakness Psychiatric: Psychiatric: Denies anxiety and Denies depression Endocrine: Endocrine: Denies cold intolerance, Denies heat intolerance and Denies palpitations Hematologic/Lymphatic: Hematologic/Lymphatic: Denies easy bleeding and Denies easy bruising Allergic/Immunologic: Allergic/Immun
[2020-02-10] MEDS: POTASSIUM CHLORIDE 20 MEQ PACKET (FOR LIQUID) 40 MEQ PO (13:21)
[2020-02-10] MEDS: GABAPENTIN 100 MG CAPSULE PO (22:53)
[2020-02-11] VITALS (7 sets, daily range): BP systolic 123–153; BP diastolic 57–90; PULSE 53–64; RESP 12–20; TEMP 35.5–36.7; O2SAT 97–100; BMI 27.5
[2020-02-11 04:21] LABS: Hematocrit 24.3 % (42.0-52.0); Hemoglobin 7.5 g/dL (14.0-18.0); Mean Corpuscular HGB Conc 30.9 g/dl (32-36); Mean Corpuscular Hemoglobin 30.5 pg (26-34); Mean Corpuscular Volume 98.8 fl (80-100); Mean Platelet Volume 10.9 fl (7.4-10.4); Platelet Count Result 158 k/mm3 (150-375); Red Blood Count 2.46 M/mm3 (4.6-6.20); Red Cell Distribution Width 16.4 % (11.5-14.5); White Blood Count 7.3 K/mm3 (4.5-10.0)
[2020-02-11 04:35] LABS: Alanine Aminotransferase 14 U/L (4-50); Albumin Level 2.7 g/dL (3.5-5.1); Alkaline Phosphatase 73 U/L (38-126); Aspartate Amino Transferase 62 U/L (17-59); Bilirubin,Total 0.7 mg/dL (0.2-1.3); Blood Urea Nitrogen 31 mg/dL (9-20); Carbon Dioxide 26 mmol/L (22-30); Chloride 109 mmol/L (98-107); Estimated CRCL calculation 34 ml/min; Estimated Glomerular Filt Rate 37; Glucose 102 mg/dL (75-110); Potassium 4.3 mmol/L (3.4-5.0); Sodium 139 mmol/L (137-145)
[2020-02-11] MEDS: GABAPENTIN 100 MG CAPSULE PO ×3 (06:12→21:11)
[2020-02-11] MEDS: LEVOTHYROXINE SODIUM 25 MCG TABLET PO (06:12)
--- NOTE | 2020-02-11 06:25 | PM.PNCARD ---
Progress Note: A&P Additional Plan Will continue anti-platelet therapy statin and ARB. Beta-adwoa is on hold because of the intermittent bradycardia following his infarction. Will transfer to the floor and stop monitoring telemetry since he wants to be DNR. Physical therapy will be asked to get involved in hopes of getting this man in condition where he can reasonably discharged to his home. Once again no intention to consider procedures/pacemaker implantation in this situation therefore there is no reason to monitor his cardiac rhythm. Hopefully he can be discharged to his home with family in the next 24-48 hours. It seems very unusual that he was brought to the hospital requesting emergency intervention/revascularization if he does not wish anything aggressive to be done at this time. Elder Keys MD [facility] Subjective Date/time seen: Date of service: 02/11/20 06:25 Interval history: Follow-up visit in 79-year-old man presenting with acute inferior posterior infarction, late presentation MT was due to occlusion of his 20-year-old vein graft to the RCA which had been intervened on at least on 2 previous occasions. Intervention at this time was unsuccessful. Patient is free of significant complaints today. He has decided last evening that he wishes to be DNR and have no further aggressive procedures or treatment. Long conversation with the patient this morning about this decision. We will treat him medically but stop monitoring his rhythm and transfer him out of ICU to the medical floor. He will need some physical therapy in hopes of improving his strength where discharged back to home will be reasonable. Exam Const: General: comfortable and no acute distress HENMT: Mouth: Yes moist mucous membranes Eyes: Sclera: sclerae normal Pupils: Equal, round and reactive pupils present Neck: Neck: supple and no JVD Thyroid: thyroid normal Other: Bilateral endarterectomy scar Resp: Auscultation: clear to auscultation bilaterally Cardio: Rate: regular rate Rhythm: regular rhythm Other: 2/6 crescendo decrescendo murmur at the base GI: Auscultation: normal bowel sounds Skin: General skin exam: normal color Neuro: Cognition (Neuro): normal cognition and abnormal cognition Speech: normal speech Extrem: General: normal to inspection Objective Data Vital Signs Vital Signs: Vital Signs - 24 hr 02/10/20 08:00 02/10/20 09:18 02/10/20 10:00 Temperature 36.7 C Pulse Rate 54 L 55 L Respiratory Rate 20 Blood Pressure 121/65 Pulse Oximetry 9 L 95 02/10/20 12:00 02/10/20 14:00 02/10/20 16:00 Temperature 36.6 C 36.7 C Pulse Rate 54 L 49 L 55 L Respiratory Rate 18 18 Blood Pressure 118/61 119/65 Pulse Oximetry 96 99 02/10/20 17:53 02/10/20 18:00 02/10/20 20:00 Temperature 36.5 C Pulse Rate 48 L 48 L 55 L Respiratory Rate 23 H 14 Blood Pressure 143/68 H 103/66 Pulse Oximetry 99 95 02/10/20 22:00 02/10/20 23:46 02/11/20 04:34 Temperature Pulse Rate 38 L 54 L 53 L Respiratory Rate 16 Blood Pressure 103/66 142/65 H Pulse Oximetry 99 Intake/Output Intake/Output: Intake & Output 02/08/20 02/09/20 02/10/20 02/11/20 23:59 23:59 23:59 23:59 Intake Total 120 1443 2610 727 Output Total 200 350 350 225 Balance -80 1093 2260 502 Meds/Results Medications: Active Medications Generic Name Dose Route Start Last Admin Trade Name Freq PRN Reason Stop Dose Admin Hydrocodone Bitart/Acetaminophen 1 tab 02/08/20 19:22 02/09/20 22:04 [place] 7.5-325 Mg PO 1 tab Q6H PRN Administration Pain Rated 7-10 Allopurinol 100 mg 02/09/20 08:00 02/10/20 09:48 Zyloprim PO 100 mg DAILY@0800 [facility] Administration Aspirin 81 mg 02/09/20 08:00 02/10/20 09:47 Aspirin Chewable PO 81 mg DAILY@0800 [facility] Administration Clopidogrel Bisulfate 75 mg 02/09/20 09:00 02/10/20 09:48 Plavix PO 75 mg DAILY [facility] Administration Docusate Sodium 100 mg
[2020-02-11] MEDS: allopurinoL 100 MG TABLET PO (09:07)
[2020-02-11] MEDS: FLUDROCORTISONE ACETATE 0.1 MG TABLET PO (09:07)
[2020-02-11] MEDS: CLOPIDOGREL BISULFATE 75 MG TABLET PO (09:07)
[2020-02-11] MEDS: predniSONE 10 MG TABLET PO (09:07)
[2020-02-11] MEDS: FOLIC ACID 1 MG TABLET PO (09:07)
[2020-02-11] MEDS: ASPIRIN 81 MG CHEWABLE TABLET PO (09:07)
[2020-02-11] MEDS: ROSUVASTATIN 10 MG TABLET 20 MG PO (09:08)
[2020-02-11] MEDS: SODIUM BICARBONATE TAB 650 MG TABLET PO ×2 (09:08→16:31)
[2020-02-11] MEDS: SODIUM CHLORIDE 0.9% IV 1,000 ML 75 ML IV CONT ×2 (09:35→23:30)
--- NOTE | 2020-02-11 10:10 | PC.NURSE ---
Received from / via bed.
--- NOTE | 2020-02-11 10:10 | PC.NURSE ---
This patient, Art Sousa, was transferred to [facility] on 02/11/20 at 1004. Personal belongings sent with patient. Belongings list checked and signed with receiving RN. Report given to CECILIA Nails. Appropriate documentation sent with patient. POA notified of transfer via telephone.
--- NOTE | 2020-02-11 10:11 | PCDIET ---
Nutrition Follow-Up Complete: Nutrition Diagnosis: Increased protein needs r/t skin breakdown as evidence by deep tissue pressure ulcer on coccyx Nutrition Goal: PO intake of 50% or greater to meet nutrition needs and halt further skin breakdown Goal in progress. Patient previously with average of 25% intake, but did eat 100% of breakfast today. Recommend continuing present diet and supplements. Last recorded weight is 90 kg which is down from last review. Bowel Motility: Last documented BM on 02/10/20. Labs Reviewed: BUN (31), Cr (1.8), Alb (2.7), Lilly Ca (9.04) Meds Noted: Florinef, Folic Acid, Prednisone, Sodium Bicarbonate Additional Notes: No change in coccyx deep tissue area noted. Will continue to monitonr with same goal. Nutrition Monitoring and Evaluation: Follow up in 3 days.
[2020-02-12] MEDS: GABAPENTIN 100 MG CAPSULE PO (05:46)
[2020-02-12] MEDS: LEVOTHYROXINE SODIUM 25 MCG TABLET PO (05:46)
[2020-02-12 06:00] VITALS: BP 150/60; PULSE 58; RESP 20; TEMP 36.2; O2SAT 98
[2020-02-12 06:24] LABS: Hematocrit 24.4 % (42.0-52.0); Hemoglobin 7.6 g/dL (14.0-18.0); Mean Corpuscular HGB Conc 31.1 g/dl (32-36); Mean Corpuscular Hemoglobin 30.6 pg (26-34); Mean Corpuscular Volume 98.4 fl (80-100); Mean Platelet Volume 11.4 fl (7.4-10.4); Platelet Count Result 176 k/mm3 (150-375); Red Blood Count 2.48 M/mm3 (4.6-6.20); Red Cell Distribution Width 16.5 % (11.5-14.5); White Blood Count 7.1 K/mm3 (4.5-10.0)
[2020-02-12 06:42] LABS: Alanine Aminotransferase 16 U/L (4-50); Albumin Level 2.6 g/dL (3.5-5.1); Alkaline Phosphatase 80 U/L (38-126); Aspartate Amino Transferase 53 U/L (17-59); Bilirubin,Total 0.4 mg/dL (0.2-1.3); Blood Urea Nitrogen 27 mg/dL (9-20); Calcium 8.1 mg/dL (8.4-10.2); Carbon Dioxide 25 mmol/L (22-30); Chloride 111 mmol/L (98-107); Estimated CRCL calculation 36 ml/min; Estimated Glomerular Filt Rate 39; Glucose 100 mg/dL (75-110); Magnesium 1.9 mg/dL (1.6-2.3); Potassium 3.4 mmol/L (3.4-5.0); Sodium 142 mmol/L (137-145)
[2020-02-12] MEDS: FOLIC ACID 1 MG TABLET PO (08:17)
[2020-02-12] MEDS: ASPIRIN 81 MG CHEWABLE TABLET PO (08:17)
[2020-02-12] MEDS: CLOPIDOGREL BISULFATE 75 MG TABLET PO (08:17)
[2020-02-12] MEDS: SODIUM BICARBONATE TAB 650 MG TABLET PO (08:17)
[2020-02-12] MEDS: ROSUVASTATIN 10 MG TABLET 20 MG PO (08:17)
[2020-02-12] MEDS: FLUDROCORTISONE ACETATE 0.1 MG TABLET PO (08:17)
[2020-02-12] MEDS: predniSONE 10 MG TABLET PO (08:17)
[2020-02-12] MEDS: allopurinoL 100 MG TABLET PO (08:17)
--- NOTE | 2020-02-12 10:10 | PM.PNCARD ---
Progress Note: A&P Additional Plan 79-year-old male with: Multivessel coronary artery disease with acute inferior wall infarction on the day of this admission with unsuccessful PCI of his RCA vein graft which was attempted. As stated in the procedure note this is a vein graft that was known to be disease for many years having been stented on at least 2 occasions in the past. He therefore with has completed his infarction in this zone and is now asymptomatic. In the last several days the patient has gone back and forth at least daily if not several times per day regarding his decision to be DNR or not. In any event he is now stable for discharge. His blood pressure is modestly elevated so I will resume the losartan that he was taking as an outpatient. Hemoglobin has come down to 7.4 during this admission but he is asymptomatic and does not appear to require transfusion of red cell volume. He desires discharged home he indicates he has family at home in his house home and [place] to assist him and does not wish to remain hospitalized any longer. Elder Kyes MD [facility] Time Spent With Patient Time with patient: 15 - 25 minutes Subjective Date/time seen: date of service:02/12/20 10:10 Interval history: Follow-up visit in 79-year-old man presenting with acute inferior posterior infarction, late presentation HI was due to occlusion of his 20-year-old vein graft to the RCA which had been intervened on at least on 2 previous occasions. Intervention at this time was unsuccessful. Patient is free of significant complaints today. He has decided last evening that he wishes to be DNR and have no further aggressive procedures or treatment. Long conversation with the patient this morning about this decision. We will treat him medically but stop monitoring his rhythm and transfer him out of ICU to the medical floor. He will need some physical therapy in hopes of improving his strength where discharged back to home will be reasonable. Today patient is feeling well he is out of the ICU able to ambulate to and from the bathroom without any problems. He denies any chest pain or dyspnea. He would like to be discharged. Exam Const: General: comfortable and no acute distress HENMT: Mouth: Yes moist mucous membranes Eyes: Sclera: sclerae normal Pupils: Equal, round and reactive pupils present Neck: Neck: supple and no JVD Thyroid: thyroid normal Other: No carotid bruits Resp: Effort & Inspection: normal respiratory effort Auscultation: clear to auscultation bilaterally Cardio: Rate: regular rate Rhythm: regular rhythm Other: grade 2/6 crescendo decrescendo murmur at the base related to his TAVR valve. No audible AI GI: Auscultation: normal bowel sounds Skin: General skin exam: normal color Neuro: Cognition (Neuro): normal cognition Extrem: General: normal to inspection Other: normal distal pulses, no peripheral edema Objective Data Vital Signs Vital Signs: Vital Signs - 24 hr 02/11/20 10:15 02/11/20 10:24 02/11/20 12:49 Temperature 36.1 C L 36.0 C L Pulse Rate 64 61 64 Respiratory Rate 18 18 16 Blood Pressure 151/62 H 123/57 L Pulse Oximetry 100 100 100 02/11/20 16:00 02/11/20 22:00 02/12/20 06:00 Temperature 36.1 C L 36.7 C 36.2 C L Pulse Rate 62 61 58 L Respiratory Rate 20 18 20 Blood Pressure 123/90 142/69 H 150/60 H Pulse Oximetry 98 97 98 Intake/Output Intake/Output: Intake & Output 02/09/20 02/10/20 02/11/20 02/12/20 23:59 23:59 23:59 23:59 Intake Total 1443 2610 3020 1150 Output Total 350 350 515 400 Balance 1093 2260 2505 750 Meds/Results Medications: Active Medications Generic Name Dose Route Start Last Admin Trade Name Freq PRN Reason Stop Dose Admin Hydrocodone Bitart/Acetaminophen 1 tab 02/08/20 19:22 02/09/20 22:04 [place] 7.5-325 Mg PO 1 tab Q6H PRN Administration Pain Rated 7-10 Allopurinol 100 mg 02/09/20 08:00 02/12/20 08:17 Zyloprim
--- NOTE | 2020-02-12 10:13 | PM.DS ---
DS: Admitting Diagnosis Admitting Diagnosis Admitting Diagnosis: Non-ST elevation (NSTEMI) myocardial infarction DS: Summary Hospital Course Reason for hospitalization: chest pain acute myocardial infarction Hospital Course: this is a 79-year-old patient with well known coronary artery disease who presented with chest pain and evidence of acute inferior wall SC on ECG. 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 The right coronary had was grafted 20 years ago at the time of his bypass surgery. The proximal segment of the graft was acutely occluded. This vessel/vein graft had been intervened on 2 occasions in the past and there was a lot of old stent material in the graft. Despite successfully placing a guidewire down the entire length of this graft into the ken[place] RCA making a series of balloon inflations there was no ability to wrist restore any antegrade flow into the vessel at all. The intervention was therefore aborted at that time was unsuccessful but uncomplicated. Angiographically he was also found to have modest diffuse disease in the circumflex which had been intervened on in the past. There was a high-grade stenosis in the proximal to mid LAD but there was a patent RAHMAN graft to that vessel. Unbeknownst to us prior to this intervention the patient had a TAVR performed. Following intervention there were records obtained demonstrating this was done in [place]. This is a patient who spends part of his time in this vicinity and part of the year if not most of the year in [place]. He had a riata relatively on remarkable recovery following this event. He did have some Samuel arrhythmias and pauses which were asymptomatic that resulted in discontinuance of his a beta-adwoa. Patient also several times during this hospitalization and expressed of differing views on whether he wish to have any further aggressive care or not. Several times he requested to be do not resuscitate orders on his chart and then changed his mind. Today he is ambulating his vital signs are stable he is asymptomatic and wishes to be discharged home. This appears to be reasonable. Status at Discharge Functional status at discharge: independent ambulation Overall status at discharge: patient is back to baseline Time Spent with Patient Time attestation: Total time spent providing and/or coordinating discharge services: Time spent: Greater than 30 minutes Exam Const: General: comfortable and no acute distress HENMT: Mouth: Yes moist mucous membranes Eyes: Sclera: sclerae normal Pupils: Equal, round and reactive pupils present Neck: Neck: supple and no JVD Thyroid: thyroid normal Other: No audible carotid bruits Resp: Effort & Inspection: normal respiratory effort Auscultation: clear to auscultation bilaterally Cardio: Rate: regular rate Rhythm: regular rhythm Other: soft grade 2/6 crescendo decrescendo murmur compatible with his TAVR valve. No aortic regurgitation GI: GI Palp: Yes Soft to palpation Auscultation: normal bowel sounds Skin: General skin exam: normal color Extrem: General: normal to inspection DS: Data Data Completed and Pending Labs on day of discharge: Labs from last 24 hours 02/12/20 02/12/20 05:39 05:39 WBC 7.1 RBC 2.48 L Hgb 7.6 L Hct 24.4 L MCV 98.4 MCH 30.6 MCHC 31.1 L RDW 16.5 H Plt Count 176 MPV 11.4 H Sodium 142 Potassium 3.4 Chloride 111 H Carbon Dioxide 25 BUN 27 H Creatinine 1.70 H Estim Creat Clear Calc 36 Estimated GFR 39 L Glucose 100 Calcium 8.1 L Magnesium 1.9 Total Bilirubin 0.4 AST 53 ALT 16 Alkaline Phosphatase 80 Total Protein 6.0 L Albumin 2.6 L Discharge Plan Discharge Attending physician on discharge: Elder Keys Discharging Clinician: Elder Keys Anticipated Discharge Date/Time: 0
== END 2020-02-12 12:02 | DRG 251 ==
LOC: ANHED 12:27 → ANHICU 12:36 → ANH3MED 02-11 10:16
PROVIDERS: Internal Medicine; Physician Assistant; Admitting Provider Specialist; Emergency Provider Emergency Medicine; PCP Internal Medicine; Visit Provider Specialist
PROC: 02703ZZ Dilation of Coronary Artery, One Artery, Percutaneous Approach (ICD-10-PCS; principal; 2020-02-08 12:30)
PROC: 02703ZZ Dilation of Coronary Artery, One Artery, Percutaneous Approach (ICD-10-PCS; CPT 92937; 2020-02-08 12:30)
DX: I21.19 ST elevation (STEMI) myocardial infarction involving other coronary artery of inferior wall (principal); I25.810 Atherosclerosis of coronary artery bypass graft(s) without angina pectoris; I13.0 Hypertensive heart and chronic kidney disease with heart failure and stage 1 through stage 4 chronic kidney disease, or unspecified chronic kidney disease; N18.4 Chronic kidney disease, stage 4 (severe); I25.10 Atherosclerotic heart disease of native coronary artery without angina pectoris; I95.9 Hypotension, unspecified; I50.9 Heart failure, unspecified; I45.5 Other specified heart block; I48.91 Unspecified atrial fibrillation; I35.0 Nonrheumatic aortic (valve) stenosis; E87.6 Hypokalemia; R09.02 Hypoxemia; I67.9 Cerebrovascular disease, unspecified; M10.9 Gout, unspecified; Z96.643 Presence of artificial hip joint, bilateral; Z66 Do not resuscitate; Z87.891 Personal history of nicotine dependence; Z95.2 Presence of prosthetic heart valve; Z95.5 Presence of coronary angioplasty implant and graft
CPT/HCPCS: 36415; 70450; 71045; 80053; 83605; 83735; 84484; 85025; 85027; 92937; 93005; 93306; 93455; 96374; 97161; 97165; 99285; A9270; C1725; C1769; C1887; C1894; J0461; J0583; J1265; J1327; J1644; J7030; J7512

== ENCOUNTER 2020-02-14 14:43 | Inpatient (IN) | payer MEDICARE, SELFPAY ==
[2020-02-14] VITALS (7 sets, daily range): BP systolic 169–185; BP diastolic 64–79; PULSE 55–114; RESP 20–23; TEMP 36.4–36.8; O2SAT 97–100; BMI 27.2
--- NOTE | ~2020-02-14 | XR_ITS ---
XR chest 1V portable 02/14/2020 15:31 Indication: Redness of breath Procedure: AP portable chest Comparison: Comparison to multiple prior studies sequentially, with oldest reviewed study dated 12/11. Findings: There are coarse mixed interstitial and airspace infiltrates of the mid and lower lungs, le ft greater than right. There is chronic left apical pleural thickening/scarring. Status post median s ternotomy for CABG. Borderline heart size. Possible small left effusion. No pneumothorax. Impression: 1: Coarse mixed interstitial and airspace opacities of the mid and lower lungs some of which are referral rn loreta, suspicious for superimposed acute on chronic pneumonia/fibrosis. Reviewed, dictated and finalized at location A. Impression: 1: Coarse mixed interstitial and airspace opacities of the mid and lower lungs some of which are chronic, suspicious for superimposed acute on chronic pneumon ia/fibrosis.
--- NOTE | 2020-02-14 14:52 | ECG_ITS ---
Measurements Intervals [place] Rate: 55 P: 5 AK: 122 QRS: -60 QRSD: 163 T: -64 QT: 519 QTc: 498 Interpretive Statements SINUS BRADYCARDIA ATRIAL PREMATURE COMPLEX LEFT AXIS DEVIATION RIGHT BUNDLE BRANCH BLOCK ST-T WAVE ABNORMALITY IN ANTEROLAT/INF LEADS- CONSIDER ISCHEMIA BASELINE WANDER- I, II, V2 ABNORMAL ECG Electronically Signed On 02-14-2020 15:43:47 CDT by Devin Hudson D.O.
--- NOTE | 2020-02-14 15:01 | ED.GENADULT ---
HPI - General Adult General Chief complaint: Shortness of Breath/Dyspnea Stated complaint: SOB Source: patient and EMS Limitations: no limitations History of Present Illness HPI narrative: 79 years old white male got discharged from our hospital 4 days ago, lives with his daughter, who called the ambulance because she believed that her dad have shortness of breath. Currently patient is asymptomatic. Patient told me that he had cardiac catheterization trying to put a pacemaker without success. The daughter reported that his heart rate goes between 35 and 60. Patient on aspirin and Plavix, does not smoke or drink. Related Data Home Medications Medication Instructions Recorded Confirmed acetaminophen [Tylenol] 650 mg PO Q12H 02/08/20 02/08/20 ergocalciferol (vitamin D2) 1,250 mcg PO WEEKLY 02/08/20 02/08/20 [Vitamin D2] fenofibrate nanocrystallized 48 mg PO QPM 02/08/20 02/08/20 fludrocortisone 0.1 mg PO Q12H 02/08/20 02/08/20 hydrocodone-acetaminophen 1 tablet PO QID PRN 02/08/20 02/08/20 levothyroxine 25 mcg PO 0630 02/08/20 02/08/20 losartan 25 mg PO DAILY 02/08/20 02/08/20 megestrol 20 mg PO DAILY 02/08/20 02/08/20 Allergies Allergy/AdvReac Type Severity Reaction Status Date / Time Penicillins Allergy Unknown Rash Verified 02/08/20 11:44 Review of Systems Review of Systems: Narrative: CONSTITUTIONAL: Denies fever, chills, or sweats. EYES: Denies visual changes, redness, or discharge. ENT: Denies rhinorrhea, congestion, sore throat, or otalgia. CARDIOVASCULAR: Denies chest pain, palpitations, or edema. RESPIRATORY: Denies cough or dyspnea. GASTROINTESTINAL: Denies abdominal pain, nausea, vomiting, or diarrhea. GENITOURINARY: Denies dysuria or hematuria. SKIN: Denies rash or itching. MUSCULOSKELETAL: Denies back pain, joint pain, or myalgia. NEUROLOGIC: Denies headache, numbness, or weakness. PSYCHIATRIC: Denies anxiety or depression. [facility] Past Medical History Medical History Angina at rest Arthritis CAD (coronary artery disease) of artery bypass graft Cataracts, bilateral CHF (congestive heart failure) Chronic renal failure, stage 4 (severe) GERD (gastroesophageal reflux disease) GI bleed Gout Hyperchloremia Hyperlipidemia Hypertension Kidney stone Normal colonoscopy Sinus trouble Skin cancer STEMI (ST elevation myocardial infarction) Surgical History Surgical History History of cardiac cath History of removal of pigmented skin lesion History of total replacement of both hip joints Hx of CABG 3 vessel S/P aortic valve replacement Stented coronary artery Multiple stents Family History Family History Father Cerebrovascular accident Patient's father is Acute myocardial infarction Mother Family history of malignant neoplasm of ovary Patient's mother is Sibling Patient's brother is Acute myocardial infarction Social History Social History Social History: Currently lives with his sister who is durable power attorney recruiter. He is . He had been living with a significant other in [place] but she has recently been diagnosed with terminal cancer. The patient decided to move back in with his sister as he is not able to take care for self. He designates himself to be a full code Smoking packs per day: 2 Smoking cigarettes per day: 40.0 Years smoked: 24 Smoking pack-years: 48.00 Smoking status: Former smoker Tobacco type: cigarettes Second hand tobacco smoke exposure: Yes Alcohol intake: never Substance use: never Substance use type: does not use Additional living arrangements comments: Sister Additional occupation/education comments: [employer] in [place] Gender identity (if verbalized by the patient):
[2020-02-14 15:12] LABS: Basophils Absolute Auto 0.1 K/mm3 (0.0-0.1); Basophils Percent Auto 0.7 % (0.2-1.2); Eosinophils Absolute Auto 0.3 K/mm3 (0-0.3); Eosinophils Percent Auto 3.4 % (0-4.4); Hematocrit 28.1 % (42.0-52.0); Hemoglobin 8.6 g/dL (14.0-18.0); Immature Granulocyte Absolute 0.11 K/mm3 (0.00-0.031); Immature Granulocyte Percent A 1.3 % (0-0.5); Lymphocytes Absolute Auto 1.61 K/mm3 (0.9-3.2); Lymphocytes Percent Auto 18.8 % (18.3-44.2); Mean Corpuscular HGB Conc 30.6 g/dl (32-36); Mean Corpuscular Hemoglobin 30.8 pg (26-34); Mean Corpuscular Volume 100.7 fl (80-100); Mean Platelet Volume 10.8 fl (7.4-10.4); Monocytes Absolute Auto 0.6 K/mm3 (0.1-0.6); Monocytes Percent Auto 6.6 % (2.6-8.5); Neutrophils Absolute Auto 5.9 K/mm3 (1.3-6.7); Neutrophils Percent Auto 69.2 % (45.5-73.1); Platelet Count Result 255 k/mm3 (150-375); Red Blood Count 2.79 M/mm3 (4.6-6.20); Red Cell Distribution Width 17.2 % (11.5-14.5); White Blood Count 8.6 K/mm3 (4.5-10.0)
[2020-02-14 15:29] LABS: Alanine Aminotransferase 22 U/L (4-50); Alkaline Phosphatase 85 U/L (38-126); Aspartate Amino Transferase 48 U/L (17-59); Bilirubin,Total 0.5 mg/dL (0.2-1.3); Blood Urea Nitrogen 18 mg/dL (9-20); Calcium 8.3 mg/dL (8.4-10.2); Carbon Dioxide 26 mmol/L (22-30); Chloride 109 mmol/L (98-107); Estimated CRCL calculation 47 ml/min; Estimated Glomerular Filt Rate 54; Glucose 96 mg/dL (75-110); Potassium 2.9 mmol/L (3.4-5.0); Sodium 142 mmol/L (137-145)
[2020-02-14 15:36] LABS: NT Pro B Type Natriuretic Pept 28000 PG/ML (5-100)
[2020-02-14] MEDS: POTASSIUM CHLORIDE 20 MEQ TABLET 40 MEQ PO (17:22)
--- NOTE | 2020-02-14 18:45 | ADMGEN ---
This patient, Art Sousa, was admitted to IMU Room 202-01. Patient/family oriented to hospital policies and general routines including ID bracelet, bed and alarms, visiting hours, pain management, procedures, bathroom and other care routines, personal items, smoking policy, room service/diet, and visiting hours. Valuables list has been completed. Information on how to activate the Rapid Response Team has been discussed. Patient/Family are encouraged to report perceived risks to care and to ask questions if they do not understand what they are told or what they should do.
--- NOTE | 2020-02-14 22:35 | PM.IMHP ---
H&P: HPI History of Present Illness Chief complaint: hypokalemia/anemia/dyspnea Narrative: Art Sousa is a 79 year old male patient who came in with shortness of breath and dyspnea today the patient was just discharged from this hospital on the . The patient alternates between living with his sister and his daughter. The daughter called hit the ambulance today because he was so short of breath. The patient did have a cardiac catheterization his last admission. Patient's heart rate was anywhere from 35-60. Dr. Keys saw the patient on his last admission. On 02/07 the patient came into the emergency room with chest x-ray and was suspicious for acute posterior infarction. The patient had severe pain at that time. The patient was noted to have a non STEMI patient had multiple PCIs in CABG in the past patient was on dual anti platelet therapy at that time. To have symptomatic junctional bradycardia patient had been on the dopamine drip at that time. The patient had an acute posterior inferior infarction due to occlusion of the right coronary vein graft which was known to be severely disease for many years having been stented on 2 occasions the past in 2005 and 2010. Despite crossing the proximal occlusion the graft with the whisper wire and making a series a balloon inflations along its entire length there was no christian of any antegrade flow in the vessel. He had mildly decreased but patent left main which has been stented in the past. High-grade stenosis in the proximal LAD in pain Lynch graft to the mid to distal LAD.. There was no intervention to consider pacemaker implantation since there is no continue minutes of monitoring his cardiac rhythm. I discussed this findings with the ER physician however the patient was found to have a low potassium level 2.9. The ER physician felt that it would be the patient's best interest to admit him overnight due to the low potassium. He is complaining of some cramping in his legs and hands and he was given a potassium pill in the emergency room. Was 2.090, I explained this to the ED physician that the patient's highest troponin had been 29.200 on February 08, 2020. The patient had a STEMI at that time. Therefore the troponin most likely is just trending down from his STEMI that he had 6 days ago. Patient was admitted for hypo kalemia. Date of service 02/14/2020 Review of Systems Review of Systems: All systems reviewed & are unremarkable except as noted in HPI and below Constitutional: Constitutional: Reports as per HPI and Reports no additional constitutional complaints Eyes: Eyes: Reports as per HPI and Reports no additional eye complaints ENT: Reports system reviewed and no additional complaints, except as documented and Reports Normal hearing present Cardiovascular: Cardiovascular: Reports no additional cardiovascular complaints Respiratory: Respiratory: Reports no additional respiratory complaints and Reports no additional respiratory complaints Gastrointestinal: Gastrointestinal: Reports as per HPI and Reports no additional gastrointestinal complaints Musculoskeletal: Musculoskeletal: Reports no additional musculoskeletal complaints Integumentary/Breasts: Skin/Breast: Reports system reviewed and no additional complaints, except as docu and Reports as per HPI Neurologic: Reports system reviewed and no additional complaints, except as documented, Reports as per HPI and Reports Normal hearing present Psychiatric: Psychiatric: Reports no additional psychiatric complaints and Reports as per HPI Endocrine: Endocrine: Reports no additional endocrine complaints Hematologic/Lymphatic: Hematologic/Lymphatic: Reports no additional hematologic/lymphatic complaints Allergic/Immunologic: Allergic/Immunologic: Reports no additional allergic/immunologic complaints [facility] Past Medical History Medical History (Updated 02/14/20 @ 22:48 by Ofelia Alvarenga NP) Angina at rest Arthritis CAD (cor
[2020-02-14] MEDS: GABAPENTIN 100 MG CAPSULE PO (23:29)
[2020-02-14] MEDS: FLUDROCORTISONE ACETATE 0.1 MG TABLET PO (23:30)
[2020-02-14] MEDS: ACETAMINOPHEN 325 MG TABLET 650 MG PO (23:30)
[2020-02-14 23:34] LABS: Blood Urea Nitrogen 16 mg/dL (9-20); Carbon Dioxide 24 mmol/L (22-30); Chloride 110 mmol/L (98-107); Estimated CRCL calculation 50 ml/min; Estimated Glomerular Filt Rate 59; Glucose 88 mg/dL (75-110); Sodium 140 mmol/L (137-145)
[2020-02-15] VITALS (12 sets, daily range): BP systolic 97–169; BP diastolic 53–71; PULSE 41–117; RESP 16–20; TEMP 35.8–36.6; O2SAT 97–100; BMI 27.5
[2020-02-15 04:29] LABS: Blood Urea Nitrogen 15 mg/dL (9-20); Calcium 8.2 mg/dL (8.4-10.2); Carbon Dioxide 26 mmol/L (22-30); Chloride 111 mmol/L (98-107); Estimated CRCL calculation 55 ml/min; Estimated Glomerular Filt Rate > 60; Glucose 90 mg/dL (75-110); Potassium 2.9 mmol/L (3.4-5.0); Sodium 140 mmol/L (137-145)
[2020-02-15] MEDS: LEVOTHYROXINE SODIUM 25 MCG TABLET PO (05:49)
[2020-02-15] MEDS: ASPIRIN 81 MG CHEWABLE TABLET PO (08:33)
[2020-02-15] MEDS: allopurinoL 100 MG TABLET PO (08:34)
[2020-02-15] MEDS: POTASSIUM CHLORIDE 20 MEQ TABLET 40 MEQ PO ×4 (08:34→22:29)
[2020-02-15] MEDS: CLOPIDOGREL BISULFATE 75 MG TABLET PO (08:34)
[2020-02-15] MEDS: FLUDROCORTISONE ACETATE 0.1 MG TABLET PO ×2 (08:34→21:11)
[2020-02-15] MEDS: LOSARTAN POTASSIUM 25 MG TABLET PO (08:35)
[2020-02-15] MEDS: GABAPENTIN 100 MG CAPSULE PO ×3 (08:35→17:57)
[2020-02-15] MEDS: FOLIC ACID 1 MG TABLET PO (08:35)
[2020-02-15] MEDS: MEGESTROL ACETATE (*CHEMO) 20 MG TABLET PO (08:35)
[2020-02-15] MEDS: ACETAMINOPHEN 325 MG TABLET 650 MG PO ×2 (08:37→21:11)
[2020-02-15] MEDS: ROSUVASTATIN 10 MG TABLET 20 MG PO (08:38)
[2020-02-15] MEDS: ONDANSETRON INJ 4 MG/2 ML VIAL IV PUSH (09:59)
[2020-02-15] MEDS: MAG HYDROX/AL HYDROX/SIMETH 30 ML UDC PO (13:00)
--- NOTE | 2020-02-15 16:28 | PM.IMPN ---
Progress Note: A&P Assessment and Plan (1) Acute hypokalemia: Code(s): E87.6 - Hypokalemia Status: Acute Assessment and Plan: Repeat BMP this afternoon. Received 80 mEq potassium today. . Patient is requesting to go home and if his potassium level is up to normal will probably discharged on potassium supplement 02/15. Suspect fludrocortisone is causing the hypo [place] (2) STEMI (ST elevation myocardial infarction): Code(s): I21.3 - ST elevation (STEMI) myocardial infarction of unspecified site Status: Acute Assessment and Plan: Patient had a non STEMI 7 days ago. He is a DNR. The patient had a cardiac catheterization and this was not amendable. The patient was also unable to receive a pacemaker at this time. The patient's troponin has trended down over the last 7 days. So the elevated troponin is way lower than what it was 6 days ago. Patient has no further complaints of chest pain. The patient is on Plavix an aspirin. He is also on fenofibrate. Continue with Crestor (3) Anemia: Qualifiers: Anemia type: unspecified type Qualified Code(s): D64.9 - Anemia, unspecified Code(s): D64.9 - Anemia, unspecified Status: Acute Assessment and Plan: Chronic and patient is at his baseline. (4) Bradycardia: Code(s): R00.1 - Bradycardia, unspecified Status: Acute Assessment and Plan: For pacemaker and he is a DNR. No beta-adwoa with the bradycardia (5) Gout: Code(s): M10.9 - Gout, unspecified Status: Chronic Assessment and Plan: Continue allopurinol. (6) Hypothyroidism: Code(s): E03.9 - Hypothyroidism, unspecified Status: Chronic Assessment and Plan: Continue with levothyroxine. (7) Hyperlipidemia: Qualifiers: Hyperlipidemia type: unspecified Qualified Code(s): E78.5 - Hyperlipidemia, unspecified Code(s): E78.5 - Hyperlipidemia, unspecified Status: Chronic Assessment and Plan: Continue with Crestor. Subjective Date/time seen: 02/15/20 16:28 Interval history: Date of visit 02/14. 79-year-old white male status post inferior posterior ID 7 days ago presented with increasing shortness of breath 1 day after discharge. Clinically stable but potassium was low and complained to weakness so was admitted for evaluation treatment of the same. Currently denying any shortness of breath or chest discomfort morning to go home. Exam Narrative: Exam Narrative: Blood pressure 150 over 64 pulse is 90 saturating 100% on room air Pupils equal reactive to light sclera anicteric Lungs clear CV regular no murmur Abdomen is soft nontender Extremity trace edema Neuro alert pleasant cooperative no focal deficits Objective Data Vital Signs Vital Signs: Vital Signs - 24 hr 02/14/20 18:03 02/14/20 18:29 02/14/20 20:00 Temperature 36.8 C 36.4 C Pulse Rate 59 L 57 L 114 H Respiratory Rate 23 H 20 20 Blood Pressure 176/68 H 185/64 H 169/75 H Pulse Oximetry 100 100 99 02/14/20 22:00 02/14/20 23:37 02/14/20 23:48 Temperature 36.6 C Pulse Rate 60 64 59 L Respiratory Rate 20 20 Blood Pressure 176/73 H Pulse Oximetry 97 97 02/15/20 02:00 02/15/20 04:00 02/15/20 06:00 Temperature 36.6 C Pulse Rate 57 L 59 L 56 L Respiratory Rate 20 Blood Pressure 140/53 L Pulse Oximetry 99 02/15/20 08:00 02/15/20 08:47 02/15/20 10:00 Temperature 35.9 C L Pulse Rate 60 60 116 H Respiratory Rate 18 Blood Pressure 169/65 H Pulse Oximetry 99 02/15/20 12:00 02/15/20 14:00 02/15/20 16:25 Temperature 35.8 C L 35.9 C L Pulse Rate 117 H 101 H 97 Respiratory Rate 20 20 Blood Pressure 97/63 L 152/65 H Pulse Oximetry 99 100 Intake/Output Intake/Output: Intake & Output 02/12/20 02/13/20 02/14/20 02/15/20 23:59 23:59 23:59 23:59 Intake Total 720 Output Total 1050 Balance -330 Meds/Results Medications: Active Medications Generi
[2020-02-15 17:15] LABS: Blood Urea Nitrogen 13 mg/dL (9-20); Calcium 7.9 mg/dL (8.4-10.2); Carbon Dioxide 25 mmol/L (22-30); Chloride 108 mmol/L (98-107); Estimated CRCL calculation 55 ml/min; Estimated Glomerular Filt Rate > 60; Glucose 124 mg/dL (75-110); Potassium 3.2 mmol/L (3.4-5.0); Sodium 138 mmol/L (137-145)
[2020-02-15] MEDS: FENOFIBRATE,MICRONIZED 48 MG TABLET PO (17:57)
--- NOTE | 2020-02-15 21:25 | PC.NURSE ---
This patient, Art Sousa, was transferred to [[id number] ] on 02/15/20 at 2120. Personal belongings sent with patient. Belongings list checked and signed with receiving [ ]. Report given to [Art BROOKS ]. Appropriate documentation sent with patient.
[2020-02-16] VITALS (16 sets, daily range): BP systolic 92–170; BP diastolic 42–105; PULSE 35–152; RESP 16–20; TEMP 36.5–36.7; O2SAT 95–98
[2020-02-16] MEDS: LEVOTHYROXINE SODIUM 25 MCG TABLET PO (05:46)
[2020-02-16 06:08] LABS: Basophils Percent Auto 0.5 % (0.2-1.2); Eosinophils Absolute Auto 0.4 K/mm3 (0-0.3); Eosinophils Percent Auto 4.9 % (0-4.4); Hematocrit 28.6 % (42.0-52.0); Hemoglobin 8.8 g/dL (14.0-18.0); Immature Granulocyte Absolute 0.05 K/mm3 (0.00-0.031); Immature Granulocyte Percent A 0.6 % (0-0.5); Lymphocytes Absolute Auto 1.62 K/mm3 (0.9-3.2); Lymphocytes Percent Auto 20.9 % (18.3-44.2); Mean Corpuscular HGB Conc 30.8 g/dl (32-36); Mean Corpuscular Hemoglobin 30.2 pg (26-34); Mean Corpuscular Volume 98.3 fl (80-100); Mean Platelet Volume 10.9 fl (7.4-10.4); Monocytes Absolute Auto 0.5 K/mm3 (0.1-0.6); Monocytes Percent Auto 6.2 % (2.6-8.5); Neutrophils Absolute Auto 5.2 K/mm3 (1.3-6.7); Neutrophils Percent Auto 66.9 % (45.5-73.1); Platelet Count Result 244 k/mm3 (150-375); Red Blood Count 2.91 M/mm3 (4.6-6.20); Red Cell Distribution Width 17.5 % (11.5-14.5); White Blood Count 7.8 K/mm3 (4.5-10.0)
[2020-02-16 06:21] LABS: Blood Urea Nitrogen 13 mg/dL (9-20); Carbon Dioxide 25 mmol/L (22-30); Chloride 109 mmol/L (98-107); Estimated CRCL calculation 55 ml/min; Estimated Glomerular Filt Rate > 60; Glucose 96 mg/dL (75-110); Potassium 4.1 mmol/L (3.4-5.0); Sodium 138 mmol/L (137-145)
--- NOTE | 2020-02-16 08:25 | ECG_ITS ---
Measurements Intervals [place] Rate: 152 P: [place]: 0 QRS: 258 QRSD: 129 T: 33 QT: 266 QTc: 423 Interpretive Statements SUPRAVENTRICULAR TACHYCARDIA, POSSIBLE ATRIAL FLUTTER RIGHT AXIS DEVIATION RIGHT BUNDLE BRANCH BLOCK INFERIOR ST ELVATION- CONSIDER ACUTE INJURY POSTERIOR INFARCT- ACUTE ABNORMAL ECG Electronically Signed On 02-16-2020 9:59:17 CDT by Devin Hudson D.O.
[2020-02-16] MEDS: NITROGLYCERIN SL 0.4 MG TABLET SUBLINGUAL (08:48)
[2020-02-16] MEDS: METOPROLOL TARTRATE INJ 5 MG/5 ML VIAL IV PUSH ×2 (08:54→13:38)
[2020-02-16] MEDS: GABAPENTIN 100 MG CAPSULE PO ×3 (09:51→18:04)
[2020-02-16] MEDS: ROSUVASTATIN 10 MG TABLET 20 MG PO (09:51)
[2020-02-16] MEDS: ASPIRIN 81 MG CHEWABLE TABLET PO (09:51)
[2020-02-16] MEDS: MEGESTROL ACETATE (*CHEMO) 20 MG TABLET PO (09:52)
[2020-02-16] MEDS: CLOPIDOGREL BISULFATE 75 MG TABLET PO (09:52)
[2020-02-16] MEDS: allopurinoL 100 MG TABLET PO (09:52)
[2020-02-16] MEDS: FLUDROCORTISONE ACETATE 0.1 MG TABLET PO ×2 (09:52→21:22)
[2020-02-16] MEDS: FOLIC ACID 1 MG TABLET PO (09:52)
[2020-02-16] MEDS: LOSARTAN POTASSIUM 25 MG TABLET PO (09:52)
[2020-02-16] MEDS: ACETAMINOPHEN 325 MG TABLET 650 MG PO ×2 (09:52→21:23)
--- NOTE | 2020-02-16 10:23 | PCOTNOTE ---
Attempted to see this patient this am, however per PT, patient's HR in 140's and patient will be transferred to IMU for possible cardio version. Pt not seen for this reason.
--- NOTE | 2020-02-16 11:38 | PC.NURSE ---
1100 sister Sis notified that patient is transferring patient to room 213. All questions answered at this time. 1110 report given to Melyssa in IMU. patient transferred to room 213 via bed at 1120.
--- NOTE | 2020-02-16 11:42 | PC.NURSE ---
This patient, Art Sousa, was received from [[id number] ] on 02/16/20 at 1124. Personal belongings list checked and signed. Patient/family oriented to unit policies and routines
--- NOTE | 2020-02-16 11:59 | PM.IMPN ---
Progress Note: A&P Assessment and Plan (1) Acute hypokalemia: Code(s): E87.6 - Hypokalemia Status: Acute Assessment and Plan: Repeat BMP this a.m. revealed potassium 4.1 after a total of 160 mEq of KCL . . Patient is requesting to go home before developed a symptomatic tachycardia. Suspect fludrocortisone is causing the hypokalemia (2) STEMI (ST elevation myocardial infarction): Code(s): I21.3 - ST elevation (STEMI) myocardial infarction of unspecified site Status: Acute Assessment and Plan: Patient had a non STEMI 8 days ago. He is a DNR. The patient had a cardiac catheterization and this was not amendable to intervention. The patient was also unable to receive a pacemaker at this time. The patient's troponin has trended down over the last 8 days. So the elevated troponin is way lower than what it was 8 days ago.. The patient is on Plavix an aspirin. He is also on fenofibrate. Continue with Crestor No intervention possible with latestcatheterization (3) Anemia: Qualifiers: Anemia type: unspecified type Qualified Code(s): D64.9 - Anemia, unspecified Code(s): D64.9 - Anemia, unspecified Status: Acute Assessment and Plan: Chronic and patient is at his baseline. (4) Bradycardia: Code(s): R00.1 - Bradycardia, unspecified Status: Acute Assessment and Plan: For pacemaker and he is a DNR. 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 (6) Hypothyroidism: Code(s): E03.9 - Hypothyroidism, unspecified Status: Chronic Assessment and Plan: Continue with levothyroxine. (7) Hyperlipidemia: Qualifiers: Hyperlipidemia type: unspecified Qualified Code(s): E78.5 - Hyperlipidemia, unspecified Code(s): E78.5 - Hyperlipidemia, unspecified Status: Chronic Assessment and Plan: Continue with Crestor. (8) Atrial flutter with rapid ventricular response: Code(s): I48.92 - Unspecified atrial flutter Status: Acute Assessment and Plan: EKG looks to be atrial flutter. ST depression also present. After sublingual nitro and IV metoprolol he became asymptomatic though still tachycardic. Concerned about tachy-silvia syndrome and possible need for pacer and need for anticoagulation. Will transfer to IMU and have seen by Cardiology again Cath and echo done 02/07 with EF of 45% by echo with TAVR of aortic valve Subjective Date/time seen: 02/16/20 11:59 Interval history: Date of visit 02/15. 79-year-old white male status post inferior posterior [place] 8 days ago presented with increasing shortness of breath 1 day after discharge. Clinically stable but potassium was low and complained of weakness so was admitted for evaluation treatment of the same. Initially today related that he is feeling fine and rate to go home. Pulse rate was rapid was ectopics greater than 100. He was asymptomatic. He then received a phone call from his sister who told him he was not able to drive and that he was not able to come home and would have to go for rehab. He then developed substernal chest pressure that pressure relieved with IV metoprolol and 1 sublingual nitroglycerin. He remained in rapid rhythm which appear to be flutter and was transferred to telemetry IMU.. Exam Narrative: Exam Narrative: Blood pressure 160/100 pulse is 126 saturating 100% on room air Pupils equal reactive to light sclera anicteric Lungs clear CV rapid, may have ectopics or fibrillation from physical exam no murmur Abdomen is soft nontender Extremity trace edema Neuro alert pleasant cooperative no focal deficits Objective Data Vital Signs Vital Signs: Vital Signs - 24 hr 02/15/20 12:00 02/15/20 14:00 02/15/20 16:00 Temperature 35.8 C L Pulse Rate 117 H 101 H 97 Re
--- NOTE | 2020-02-16 13:05 | PM.CNCAR ---
Assessment and Plan Assessment and plan (1) Atrial tachycardia: Code(s): I47.1 - Supraventricular tachycardia Status: Acute Assessment and Plan: Initial 12 lead EKG suspicious for atrial flutter around 150 beats per minute. However, Repeat 12 lead EKG and telemetry tracings do not clearly support atrial flutter and are more likely consistent with an atrial tachycardia as flutter waves are not observed with transient intermittent pauses. It is clearly not atrial fibrillation. Increase metoprolol frequency. Patient has been hypokalemic with exception of this morning which may be contributing to arrhythmia. Check magnesium. Check TSH. If tachyarrhythmia sustained/refractory, consider cardioversion in a.m.. Discussed plan to conservatively manage of medications as tolerated, however, discussed possibility of a cardioversion if unable to adequately control heart rate/rhythm. 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 Cautiously give AV arthur blocking agent with metoprolol at this time on telemetry. Counseled patient in this regard. Patient verbalized understanding and agreed with plan of care. Discussed potential need for pacemaker implantation if symptomatic bradycardia precludes reliable/effective therapy for tachyarrhythmia. (3) CAD (coronary artery disease) of artery bypass graft: Code(s): I25.810 - Atherosclerosis of coronary artery bypass graft(s) without angina pectoris Status: Resolved Assessment and Plan: Recent DE, failed PCI attempt, completed infarction. Patient asymptomatic in this regard at this time. Continue aggressive medical therapy. Continue dual antiplatelet therapy, statin. (4) Orthostatic hypotension: Code(s): I95.1 - Orthostatic hypotension Status: Acute Assessment and Plan: Monitor blood pressure closely given history of orthostasis. Patient on fludrocortisone. (5) Anemia: Qualifiers: Anemia type: unspecified type Qualified Code(s): D64.9 - Anemia, unspecified Code(s): D64.9 - Anemia, unspecified Status: Acute Assessment and Plan: Chronic, stable. No evidence for active bleed. Monitor H&H closely. History of Present Illness History of Present Illness Consult date/time: Date of service: 02/16/20 13:05 This is a cardiology consultation at request of Dr. Feliciano of the [facility] service for opinion regarding management of atrial flutter with rapid ventricular response. Requesting physician: Norberto Feliciano MD Consult reason: atrial fibrillation (Atrial flutter with rapid ventricular response) Reason For Visit: hypokalemia/anemia/dyspnea Narrative: Patient is a pleasant 79 no male was just recently discharged February 11 and then returned on the with shortness of breath and weakness. 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 Patient had significant intermittent bradycardia last hospitalization prompting discontinuation of his beta-adwoa. Patient was asymptomatic at discharge. Patient denied recurrent chest pain with exception of this morning described as indigestion while he was arguing with the sister on the phone. However, this morning he was noted to be tachycardic and once telemetry was applied and 12 lead EKG obtained consistent with atrial tachycardia versus atrial flutter at approximately 150 beats per minute. Reported history of atrial fibrillation in the past although He denies. He was given sublingual
--- NOTE | 2020-02-16 13:12 | ECG_ITS ---
Measurements Intervals [place] Rate: 127 P: 267 [place]: 131 QRS: -73 QRSD: 144 T: 100 QT: 346 QTc: 505 Interpretive Statements ATRIAL TACHYCARDIA WITH RAPID VENTRICULAR RESPONSE LEFT AXIS DEVIATION RIGHT BUNDLE BRANCH BLOCK ST ELEVATION IN LEAD III- CONSIDER ACUTE INJURY ST DEPRESSION IN SEPTAL LEADS- CONSIDER ACUTE POSTERIOR INFARCT ABNORMAL ECG Electronically Signed On 02-16-2020 14:37:56 CDT by Devin Hudson D.O.
--- NOTE | 2020-02-16 14:25 | PCDIET ---
Nutrition Follow-Up Complete: Nutrition Diagnosis: Increased protein/calorie needs related to increased demands for healing as evidenced by pressure ulcer. Nutrition Goal: Patient to consume 75% of meals/supplements. Goal met. Average intake has been 75% of meals on heart healthy diet. Patient reports good appetite and reports eating all of his meals. Does not recall receiving Yuri supplement, nor does he wish to receive it at this time. Last recorded weight is 91.3 kg which is decreased from last review. Bowel Motility: No documented BM as of yet. Labs Reviewed: Hgb (8.8), Hct (28.6), Ca (8.0) Meds Noted: Drisdol, Folic Acid, Megace Additional Notes: Medial buttock pressure ulcer. Left elbow skin tear. No further recommendations at thish time. Will continue to monitor with same goal. Nutrition Monitoring and Evaluation: Follow up in 5 days.
[2020-02-16] MEDS: METOPROLOL TARTRATE 25 MG TABLET PO ×2 (14:27→21:23)
[2020-02-16] MEDS: ENOXAPARIN 100 MG/ML SYRINGE 90 MG SUB-Q (18:04)
[2020-02-16] MEDS: FENOFIBRATE,MICRONIZED 48 MG TABLET PO (18:04)
[2020-02-17] VITALS (19 sets, daily range): BP systolic 118–150; BP diastolic 53–74; PULSE 56–125; RESP 12–22; TEMP 35.9–36.8; O2SAT 95–98
[2020-02-17 04:31] LABS: Basophils Percent Auto 0.6 % (0.2-1.2); Eosinophils Absolute Auto 0.3 K/mm3 (0-0.3); Eosinophils Percent Auto 4.7 % (0-4.4); Hematocrit 25.3 % (42.0-52.0); Hemoglobin 7.9 g/dL (14.0-18.0); Immature Granulocyte Absolute 0.05 K/mm3 (0.00-0.031); Immature Granulocyte Percent A 0.7 % (0-0.5); Lymphocytes Absolute Auto 1.84 K/mm3 (0.9-3.2); Lymphocytes Percent Auto 26.2 % (18.3-44.2); Mean Corpuscular HGB Conc 31.2 g/dl (32-36); Mean Corpuscular Hemoglobin 31.1 pg (26-34); Mean Corpuscular Volume 99.6 fl (80-100); Mean Platelet Volume 10.4 fl (7.4-10.4); Monocytes Absolute Auto 0.5 K/mm3 (0.1-0.6); Monocytes Percent Auto 7.1 % (2.6-8.5); Neutrophils Absolute Auto 4.3 K/mm3 (1.3-6.7); Neutrophils Percent Auto 60.7 % (45.5-73.1); Platelet Count Result 212 k/mm3 (150-375); Red Blood Count 2.54 M/mm3 (4.6-6.20); Red Cell Distribution Width 17.9 % (11.5-14.5)
[2020-02-17 04:44] LABS: Albumin Level 2.3 g/dL (3.5-5.1); Blood Urea Nitrogen 13 mg/dL (9-20); Calcium 7.9 mg/dL (8.4-10.2); Carbon Dioxide 24 mmol/L (22-30); Chloride 108 mmol/L (98-107); Estimated CRCL calculation 50 ml/min; Estimated Glomerular Filt Rate 59; Glucose 89 mg/dL (75-110); Magnesium 1.7 mg/dL (1.6-2.3); Phosphorus 2.8 mg/dL (2.5-4.5); Sodium 137 mmol/L (137-145)
[2020-02-17] MEDS: METOPROLOL TARTRATE 25 MG TABLET PO ×3 (06:05→18:53)
[2020-02-17] MEDS: LEVOTHYROXINE SODIUM 25 MCG TABLET PO (06:36)
--- NOTE | 2020-02-17 08:00 | PCPTNOTE ---
Pt was transferred to IMU on 02/16/20. PT held treatment due to change in medical status.
--- NOTE | 2020-02-17 08:44 | PM.IMPN ---
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 He then tachycardia, possible atrial flutter. Rate better controlled on metoprolol. He appears to converted to normal sinus rhythm. Pacemaker being considered. Appreciate Cardiology input. (2) Atrial flutter with rapid ventricular response: Code(s): I48.92 - Unspecified atrial flutter Status: Acute Assessment and Plan: EKG looks to be atrial flutter. ST depression also present. After sublingual nitro and IV metoprolol he became asymptomatic. Recent Cath and echo done 02/07 with EF of 45% by echo with TAVR of aortic valve. Rate controlled and rhythm appear to be sinus now by tele. Continue metoprolol. DOAC? (3) CAD (coronary artery disease): Code(s): I25.10 - Atherosclerotic heart disease of [place] coronary artery without angina pectoris Status: Acute Assessment and Plan: Patient had a non STEMI over a week ago. The patient had a cardiac catheterization and this was not amendable to intervention. The patient was also unable to receive a pacemaker at this time. The patient's troponin has trended down. The patient is on Plavix, aspirin, lopressor, fenofibrate and Crestor. Patient is DNR. Appreciate Cardiology input. (4) Acute hypokalemia: Code(s): E87.6 - Hypokalemia Status: Acute Assessment and Plan: Potassium on admission was 2.9. Repeat BMP on 02/15 revealed potassium 4.1 after a total of 160 mEq of KCL . Potassium stable again today. Fludrocortisone is contributing to the hypokalemia. Continue to monitor. Magnesium 1.7. Will replace today. (5) Anemia: Qualifiers: Anemia type: unspecified type Qualified Code(s): D64.9 - Anemia, unspecified Code(s): D64.9 - Anemia, unspecified Status: Acute Assessment and Plan: Hemoglobin low but stable in the 7-8 range hemoglobin Ricky earlier this year in the 10-11 range. Patient on Plavix and aspirin currently. Will check iron studies and B12 level. Is check stool guaiac. Continue to monitor. (6) Gout: Qualifiers: Chronicity: unspecified Gout etiology: unspecified cause Gout site: unspecified site Qualified Code(s): M10.9 - Gout, unspecified Code(s): M10.9 - Gout, unspecified Status: Chronic Assessment and Plan: Stable. No evidence of acute flare. Continue allopurinol. (7) Hypothyroidism: Qualifiers: Hypothyroidism type: unspecified Qualified Code(s): E03.9 - Hypothyroidism, unspecified Code(s): E03.9 - Hypothyroidism, unspecified Status: Chronic Assessment and Plan: TSH normal in November. Continue with levothyroxine. (8) Hyperlipidemia: Qualifiers: Hyperlipidemia type: unspecified Qualified Code(s): E78.5 - Hyperlipidemia, unspecified Code(s): E78.5 - Hyperlipidemia, unspecified Status: Chronic Assessment and Plan: LFTs normal a few days ago. Continue with Crestor. Subjective Date/time seen: 02/17/20 08:44 Interval history: Date of visit 02/16. 79yo male status post inferior posterior [place] 8 days ago presented with increasing shortness of breath 1 day after discharge. Clinically stable but potassium was low and complained of weakness so was admitted for evaluation treatment of the same. 02/15: Initially today related that he is feeling fine and rate to go home. Pulse rate was rapid was ectopics greater than 100. He was asymptomatic. He then received a phone call from his sister who told him he was not able to drive and that he was not able to come home and would have to go for rehab. He then developed substernal chest pressure that pressure relieved with IV metoprolol and 1 sublingual nitroglycerin. He remained in rapid rhythm which appear to be flu
--- NOTE | 2020-02-17 09:25 | PM.PNCARD ---
Progress Note: A&P Additional Plan 79-year-old white male with: Multivessel coronary artery disease recent infero posterior infarction due to occlusion of his 20-year-old saphenous vein graft to the RCA. Attempted intervention of this emergently was unsuccessful and aborted. Patient had an episode of what appears to be atrial flutter yesterday and is back in sinus rhythm this morning after being started on some beta-adwoa therapy. Rhythm appears to be stable and he is asymptomatic this morning. I will change his metoprolol tartrate dosage to q.12 hours at this time and the rest of his medications will remain unchanged. There was comment in the chart about the patient needing a pacemaker. At this time I do not see any indication for implanting a device in this gentleman. Obviously he will need to either remain hospitalized her transition to a rehab facility if his family is incapable of taking him back home. This is understandable since he states his daughter is an elderly woman in her 80s and non no longer able to take care of him in his weakened condition. Elder Keys MD [facility] Subjective Date/time seen: Date of service: 02/17/20 09:25 Interval history: Date of visit 02/16. 79yo male status post inferior posterior [place] 8 days ago presented with increasing shortness of breath 1 day after discharge. Clinically stable but potassium was low and complained of weakness so was admitted for evaluation treatment of the same. 02/15: Initially today related that he is feeling fine and rate to go home. Pulse rate was rapid was ectopics greater than 100. He was asymptomatic. He then received a phone call from his sister who told him he was not able to drive and that he was not able to come home and would have to go for rehab. He then developed substernal chest pressure that pressure relieved with IV metoprolol and 1 sublingual nitroglycerin. He remained in rapid rhythm which appear to be flutter and was transferred to telemetry IMU. 02/16: Patient slept well last night. Says he feels well this morning. Patient has converted back to sinus rhythm presumably in response to his metoprolol. Apparently the upsetting telephone call that he had last night triggered symptoms of chest pain and then the atrial flutter. Patient states that he was upset a telephone because his sister will not take him back to their home. Exam Const: General: comfortable and no acute distress HENMT: Mouth: Yes moist mucous membranes Eyes: Sclera: sclerae normal Pupils: Equal, round and reactive pupils present Neck: Neck: supple and no JVD Thyroid: thyroid normal Resp: Effort & Inspection: normal respiratory effort Auscultation: clear to auscultation bilaterally Cardio: Rate: regular rate Rhythm: regular rhythm Other: Soft systolic crescendo decrescendo murmur audible at the base no aortic regurgitation is audible GI: Auscultation: normal bowel sounds Skin: General skin exam: normal color Neuro: Cognition (Neuro): normal cognition Extrem: General: normal to inspection Objective Data Vital Signs Vital Signs: Vital Signs - 24 hr 02/16/20 09:49 02/16/20 12:00 02/16/20 13:38 Temperature 36.6 C Pulse Rate 142 H 118 H 146 H Respiratory Rate 20 Blood Pressure 170/105 H 124/81 Pulse Oximetry 97 02/16/20 14:00 02/16/20 14:27 02/16/20 16:00 Temperature Pulse Rate 116 H 108 H 107 H Respiratory Rate Blood Pressure Pulse Oximetry 02/16/20 16:13 02/16/20 20:00 02/16/20 21:23 Temperature 36.5 C 36.6 C Pulse Rate 105 H 103 H 98 Respiratory Rate 20 18 Blood Pressure 100/46 L 95/42 L Pulse Oximetry 98 96 02/16/20 21:52 02/16/20 22:00 02/17/20 00:00 Temperature 36.2 C L Pulse Rate 102 H 97 98 Respiratory Rate 18 Blood Pressure 110/67 126/55 L Pulse Oximetry 97 02/17/20 02:00 02/17/20 03:51 02/17/20 04:00 Temperature 36.8 C Pulse Rate 79 81 81 Respiratory Rate 18 18 Blood Pressure 118/71 P
[2020-02-17] MEDS: LOSARTAN POTASSIUM 25 MG TABLET PO (10:04)
[2020-02-17] MEDS: FLUDROCORTISONE ACETATE 0.1 MG TABLET PO ×2 (10:04→21:00)
[2020-02-17] MEDS: MEGESTROL ACETATE (*CHEMO) 20 MG TABLET PO (10:04)
[2020-02-17] MEDS: CLOPIDOGREL BISULFATE 75 MG TABLET PO (10:04)
[2020-02-17] MEDS: ROSUVASTATIN 10 MG TABLET 20 MG PO (10:04)
[2020-02-17] MEDS: allopurinoL 100 MG TABLET PO (10:04)
[2020-02-17] MEDS: FOLIC ACID 1 MG TABLET PO (10:04)
[2020-02-17] MEDS: GABAPENTIN 100 MG CAPSULE PO ×3 (10:05→18:53)
[2020-02-17] MEDS: ASPIRIN 81 MG CHEWABLE TABLET PO (10:05)
[2020-02-17] MEDS: ACETAMINOPHEN 325 MG TABLET 650 MG PO ×2 (10:09→21:00)
[2020-02-17 10:51] LABS: Iron 40 ug/dL (49-181)
[2020-02-17 11:02] LABS: Percent Iron Saturation 19 % (20-50)
[2020-02-17] MEDS: MAGNESIUM SULF 2 GM/WATER 50ML 2 GM/50 ML BAG IVPB (11:19)
[2020-02-17] MEDS: NITROGLYCERIN SL 0.4 MG TABLET SUBLINGUAL (11:20)
--- NOTE | 2020-02-17 11:24 | PC.NURSE ---
Patient complaining of chest pain and left arm pain 7 out of 10. Gave 1 dose nitro at 11:20, 11:25 patient states pain is improving pain is now about a 4 out of 10. Notified Jo Pruitt about Patient pain and heart rhythm has converted to AFIB.
[2020-02-17 11:47] LABS: Folic Acid > 20.0 ng/mL (2.76->20)
[2020-02-17] MEDS: FENOFIBRATE,MICRONIZED 48 MG TABLET PO (18:53)
--- NOTE | 2020-02-17 21:55 | PC.NURSE ---
Spoke with Nurse at [facility] in [place] as to whether covid testing is mandatory for acceptance to their facilities. [facility] nurse told this RN that it is necessary. Pt may possibly be discharged to [facility] tomorrow; Marcela HUERTA called for order and Denise Ley [employer] made aware of need for test.
[2020-02-18] VITALS (18 sets, daily range): BP systolic 125–151; BP diastolic 59–72; PULSE 83–99; RESP 16–20; TEMP 36–36.8; O2SAT 96–100
[2020-02-18 05:25] LABS: Hematocrit 25.4 % (42.0-52.0); Mean Corpuscular HGB Conc 31.5 g/dl (32-36); Mean Corpuscular Hemoglobin 31.1 pg (26-34); Mean Corpuscular Volume 98.8 fl (80-100); Mean Platelet Volume 10.6 fl (7.4-10.4); Platelet Count Result 220 k/mm3 (150-375); Red Blood Count 2.57 M/mm3 (4.6-6.20); Red Cell Distribution Width 17.6 % (11.5-14.5); White Blood Count 8.3 K/mm3 (4.5-10.0)
[2020-02-18] MEDS: LEVOTHYROXINE SODIUM 25 MCG TABLET PO (05:39)
[2020-02-18] MEDS: METOPROLOL TARTRATE 25 MG TABLET PO ×2 (05:39→17:42)
[2020-02-18 05:41] LABS: Albumin Level 2.4 g/dL (3.5-5.1); Blood Urea Nitrogen 12 mg/dL (9-20); Calcium 8.3 mg/dL (8.4-10.2); Carbon Dioxide 26 mmol/L (22-30); Chloride 108 mmol/L (98-107); Estimated CRCL calculation 55 ml/min; Estimated Glomerular Filt Rate > 60; Glucose 90 mg/dL (75-110); Phosphorus 3.2 mg/dL (2.5-4.5); Potassium 3.6 mmol/L (3.4-5.0); Sodium 137 mmol/L (137-145)
[2020-02-18] MEDS: ACETAMINOPHEN 325 MG TABLET 650 MG PO ×2 (09:05→21:23)
[2020-02-18] MEDS: GABAPENTIN 100 MG CAPSULE PO ×3 (09:05→17:42)
[2020-02-18] MEDS: ROSUVASTATIN 10 MG TABLET 20 MG PO (09:05)
[2020-02-18] MEDS: ASPIRIN 81 MG CHEWABLE TABLET PO (09:05)
[2020-02-18] MEDS: LOSARTAN POTASSIUM 25 MG TABLET PO (09:06)
[2020-02-18] MEDS: CLOPIDOGREL BISULFATE 75 MG TABLET PO (09:06)
[2020-02-18] MEDS: FLUDROCORTISONE ACETATE 0.1 MG TABLET PO ×2 (09:06→21:23)
[2020-02-18] MEDS: allopurinoL 100 MG TABLET PO (09:06)
[2020-02-18] MEDS: FOLIC ACID 1 MG TABLET PO (09:06)
[2020-02-18] MEDS: MEGESTROL ACETATE (*CHEMO) 20 MG TABLET PO (10:46)
--- NOTE | 2020-02-18 11:49 | PM.PNCARD ---
Progress Note: A&P Assessment and Plan (1) Atrial tachycardia: Code(s): I47.1 - Supraventricular tachycardia Status: Acute Assessment and Plan: Initial 12 lead EKG suspicious for atrial flutter around 150 beats per minute. However, Repeat 12 lead EKG and telemetry tracings do not clearly support atrial flutter and are more likely consistent with an atrial tachycardia as flutter waves are not observed with transient intermittent pauses. It is clearly not atrial fibrillation. maintaining sinus rhythm. Continue beta-adwoa therapy at current dosing. History of Bradycardia prior hospitalization. No indication for pacemaker. If recurrence of tachyarrhythmia felt to be secondary to atrial flutter systemic anticoagulation advised. Continue aspirin and clopidogrel at this time. Outpatient monitoring for recurrence would be appropriate Not likely possible at rehabilitation. Patient will be better candidate for anticoagulation if required after completion rehabilitation and improved strength/mobility. Stable for discharge from cardiac perspective at this time. Disposition per hospitalist service. Follow-up as outpatient as scheduled. 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 (3) CAD (coronary artery disease) of artery bypass graft: Code(s): I25.810 - Atherosclerosis of coronary artery bypass graft(s) without angina pectoris Status: Resolved Assessment and Plan: Recent GA, failed PCI attempt, completed infarction. Patient asymptomatic in this regard at this time. Continue aggressive medical therapy. Continue dual antiplatelet therapy, statin. (4) Orthostatic hypotension: Code(s): I95.1 - Orthostatic hypotension Status: Acute Assessment and Plan: Monitor blood pressure closely given history of orthostasis. Patient on fludrocortisone. (5) Anemia: Qualifiers: Anemia type: unspecified type Qualified Code(s): D64.9 - Anemia, unspecified Code(s): D64.9 - Anemia, unspecified Status: Acute Assessment and Plan: Chronic, stable. No evidence for active bleed. Monitor H&H closely. Subjective Date/time seen: Date of service: 02/18/20 11:49 Interval history: 79yo male status post inferior posterior GA 8 days ago presented with increasing shortness of breath 1 day after discharge. Clinically stable but potassium was low and complained of weakness so was admitted for evaluation treatment of the same. Today he has no complaints. No reported issues overnight. Denies shortness of breath, palpitations, chest pain or dizziness. States he wants to get stronger so he can go home. Plan to discharge to rehabilitation today. Review of Systems Review of Systems: All systems reviewed & are unremarkable except as noted in HPI and below Constitutional: Constitutional: Reports as per HPI and Reports no additional constitutional complaints Eyes: Eyes: Reports as per HPI and Reports no additional eye complaints ENT: Reports system reviewed and no additional complaints, except as documented and Reports as per HPI Cardiovascular: Cardiovascular: Reports as per HPI, Reports no additional cardiovascular complaints, Reports chest pain and Reports leg edema Respiratory: Respiratory: Reports as per HPI and Reports no additional respiratory complaints Gastrointestinal: Gastrointestinal: Reports as per HPI and Reports no additional gastrointestinal complaints Genitourinary: Genitourinary: Reports no additional male genitourinary complaints and Reports as per HPI Musculoskeletal: Musculoskeletal: Reports no additional musculoskeletal complaints and Reports as per HPI Integumentary/Breasts: Skin/Breast: Reports system reviewed and no additional complaints, except as docu and Reports as per HPI Neurologic: Reports
--- NOTE | 2020-02-18 13:18 | PM.DS ---
DS: Admitting Diagnosis Admitting Diagnosis Admitting Diagnosis: Hypokalemia DS: Discharge Diagnosis Discharge Diagnosis (1) Tachycardia-bradycardia syndrome: Code(s): I49.5 - Sick sinus syndrome Status: Acute Assessment and Plan: Patient bradycardic on admission. He then became tachycardia, possible atrial flutter. Rate better controlled on metoprolol. He appears to converted to normal sinus rhythm. Pacemaker was being considered but not felt to be necessary at this time per cardiology (2) Atrial flutter with rapid ventricular response: Code(s): I48.92 - Unspecified atrial flutter Status: Acute Assessment and Plan: EKG looks to be atrial flutter. ST depression also present. After sublingual nitro and IV metoprolol he became asymptomatic. Recent Cath and echo done 02/07 with EF of 45% by echo with TAVR. We continued the metoprolol. (3) CAD (coronary artery disease): Code(s): I25.10 - Atherosclerotic heart disease of [place] coronary artery without angina pectoris Status: Acute Assessment and Plan: Patient had a non STEMI over a week ago. The patient had a cardiac catheterization and this was not amendable to intervention. The patient was also unable to receive a pacemaker at this time. The patient's troponin has trended down. The patient is on Plavix, aspirin, lopressor, fenofibrate and Crestor. Patient is DNR. Cardiology involved in his care (4) Acute hypokalemia: Code(s): E87.6 - Hypokalemia Status: Acute Assessment and Plan: Potassium on admission was 2.9. Repeat BMP on 02/15 revealed potassium 4.1 after a total of 160 mEq of KCL . Potassium has remained stable since. Fludrocortisone is contributing to the hypokalemia. Continue to monitor. (5) Anemia: Qualifiers: Anemia type: unspecified type Qualified Code(s): D64.9 - Anemia, unspecified Code(s): D64.9 - Anemia, unspecified Status: Acute Assessment and Plan: Hemoglobin low but stable in the 7-8 range hemoglobin. Hemoglobin earlier this year ran in the 10-11 range. Patient on Plavix and aspirin currently. Iron studies were more consistent anemia of chronic disease. B12 folate level normal. (6) Gout: Qualifiers: Chronicity: unspecified Gout etiology: unspecified cause Gout site: unspecified site Qualified Code(s): M10.9 - Gout, unspecified Code(s): M10.9 - Gout, unspecified Status: Chronic Assessment and Plan: Stable. No evidence of acute flare. We continued allopurinol. (7) Hypothyroidism: Qualifiers: Hypothyroidism type: unspecified Qualified Code(s): E03.9 - Hypothyroidism, unspecified Code(s): E03.9 - Hypothyroidism, unspecified Status: Chronic Assessment and Plan: TSH normal in November. We continued with levothyroxine. (8) Hyperlipidemia: Qualifiers: Hyperlipidemia type: unspecified Qualified Code(s): E78.5 - Hyperlipidemia, unspecified Code(s): E78.5 - Hyperlipidemia, unspecified Status: Chronic Assessment and Plan: LFTs normal a few days ago. We continued with Crestor. DS: Summary Hospital Course Reason for hospitalization: 79yo male with recent AMI here for SOB. Please see H&P for details. Hospital Course: As above. Time Spent with Patient Time attestation: Total time spent providing and/or coordinating discharge services:35 minutes Time spent: Greater than 30 minutes Specific discharge activities: discussed with cardiology and with patient Exam Narrative: Exam Narrative: Slept well. Up to chair. No CP or SOB 133/64 87 Gen - NARD Chest - left base inspiratory crackles o/w clear, nml RR CV - RRR S1/S2 Abd - soft, NT/ND Ext - no pedal edema. Psych - alert, pleasant and cooperative. Skin - warm and dry DS: Data Data Completed and Pending Labs on day of discharge: Labs from last 24 ho
[2020-02-18] MEDS: FENOFIBRATE,MICRONIZED 48 MG TABLET PO (17:42)
[2020-02-18 18:01] LABS: SARS-CoV-2 RNA PCR Negative
[2020-02-19] VITALS (16 sets, daily range): BP systolic 128–168; BP diastolic 62–84; PULSE 85–93; RESP 18–24; TEMP 36.3–37; O2SAT 96–100
[2020-02-19] MEDS: LEVOTHYROXINE SODIUM 25 MCG TABLET PO (06:10)
[2020-02-19] MEDS: METOPROLOL TARTRATE 25 MG TABLET PO ×3 (06:11→20:29)
[2020-02-19] MEDS: GABAPENTIN 100 MG CAPSULE PO ×3 (08:26→17:09)
[2020-02-19] MEDS: FLUDROCORTISONE ACETATE 0.1 MG TABLET PO ×2 (08:27→20:29)
[2020-02-19] MEDS: allopurinoL 100 MG TABLET PO (08:27)
[2020-02-19] MEDS: ASPIRIN 81 MG CHEWABLE TABLET PO (08:27)
[2020-02-19] MEDS: ROSUVASTATIN 10 MG TABLET 20 MG PO (08:27)
[2020-02-19] MEDS: CLOPIDOGREL BISULFATE 75 MG TABLET PO (08:27)
[2020-02-19] MEDS: LOSARTAN POTASSIUM 25 MG TABLET PO (08:27)
[2020-02-19] MEDS: MEGESTROL ACETATE (*CHEMO) 20 MG TABLET PO (08:28)
[2020-02-19] MEDS: FOLIC ACID 1 MG TABLET PO (08:28)
[2020-02-19] MEDS: ACETAMINOPHEN 325 MG TABLET 650 MG PO ×2 (08:30→20:28)
--- NOTE | 2020-02-19 11:08 | PM.IMPN ---
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 He then became tachycardia, possible atrial flutter. Rate better controlled on metoprolol. He appears to converted to normal sinus rhythm. Pacemaker was being considered but not felt to be necessary at this time per cardiology. Discharged delayed as we await insurance authorization (2) Atrial flutter with rapid ventricular response: Code(s): I48.92 - Unspecified atrial flutter Status: Acute Assessment and Plan: EKG looks to be atrial flutter. ST depression also present. After sublingual nitro and IV metoprolol he became asymptomatic. Recent Cath and echo done 02/07 with EF of 45% by echo with TAVR of aortic valve. Rate controlled and rhythm appear to be sinus now by tele. Continue metoprolol. (3) CAD (coronary artery disease): Code(s): I25.10 - Atherosclerotic heart disease of [place] coronary artery without angina pectoris Status: Acute Assessment and Plan: Patient had a non STEMI over a week ago. The patient had a cardiac catheterization and this was not amendable to intervention. The patient was also unable to receive a pacemaker at this time. The patient's troponin has trended down. The patient is on Plavix, aspirin, lopressor, fenofibrate and Crestor. Patient is DNR. Appreciate Cardiology input. (4) Acute hypokalemia: Code(s): E87.6 - Hypokalemia Status: Acute Assessment and Plan: Potassium on admission was 2.9. Repeat BMP on 02/15 revealed potassium 4.1 after a total of 160 mEq of KCL 02/14. Potassium has been stable past 3 days. (5) Anemia: Qualifiers: Anemia type: unspecified type Qualified Code(s): D64.9 - Anemia, unspecified Code(s): D64.9 - Anemia, unspecified Status: Acute Assessment and Plan: Hemoglobin low but stable in the 7-8 range. Hemoglobin earlier this year in the 10-11 range. Patient on Plavix and aspirin currently. Iron studies consistent with anemia chronic disease. (6) Gout: Qualifiers: Chronicity: unspecified Gout etiology: unspecified cause Gout site: unspecified site Qualified Code(s): M10.9 - Gout, unspecified Code(s): M10.9 - Gout, unspecified Status: Chronic Assessment and Plan: Stable. No evidence of acute flare. Continue allopurinol. (7) Hypothyroidism: Qualifiers: Hypothyroidism type: unspecified Qualified Code(s): E03.9 - Hypothyroidism, unspecified Code(s): E03.9 - Hypothyroidism, unspecified Status: Chronic Assessment and Plan: TSH normal in November. Continue with levothyroxine. (8) Hyperlipidemia: Qualifiers: Hyperlipidemia type: unspecified Qualified Code(s): E78.5 - Hyperlipidemia, unspecified Code(s): E78.5 - Hyperlipidemia, unspecified Status: Chronic Assessment and Plan: LFTs normal a few days ago. Continue with Crestor. Subjective Date/time seen: 02/19/20 11:08 Interval history: Date of visit 02/18. 79yo male status post inferior posterior DC presented with increasing shortness of breath 1 day after discharge. No issues overnight per nursing staff. Patient slept well. Denies any chest pain or shortness of breath. Was up to the chair earlier today. Eating normally. Patient's discharge was held due to insurance issues. Exam Narrative: Exam Narrative: 146/70 86 Gen - NARD lying almost flat in bed Chest -few left basilar inspiratory rhonchi otherwise clear. CV - RRR S1/S2; telemetry showing occasional PVCs. Abd - soft, NT/ND, positive bowel sounds Ext -trace pedal edema. Psych - alert, pleasant and cooperative. Skin - warm and dry Objective Data Vital Signs Vital Signs: Vital Signs - 24 hr 02/18/20 12:00 02/18/20 14:39 02/18/20
[2020-02-19] MEDS: FENOFIBRATE,MICRONIZED 48 MG TABLET PO (17:10)
[2020-02-20] VITALS (16 sets, daily range): BP systolic 128–151; BP diastolic 62–77; PULSE 75–92; RESP 16–20; TEMP 36.2–37.1; O2SAT 97–98
[2020-02-20] MEDS: LEVOTHYROXINE SODIUM 25 MCG TABLET PO (06:14)
[2020-02-20] MEDS: ASPIRIN 81 MG CHEWABLE TABLET PO (08:58)
[2020-02-20] MEDS: LOSARTAN POTASSIUM 25 MG TABLET PO (08:58)
[2020-02-20] MEDS: GABAPENTIN 100 MG CAPSULE PO ×3 (08:58→17:48)
[2020-02-20] MEDS: allopurinoL 100 MG TABLET PO (08:58)
[2020-02-20] MEDS: CLOPIDOGREL BISULFATE 75 MG TABLET PO (08:58)
[2020-02-20] MEDS: FOLIC ACID 1 MG TABLET PO (08:59)
[2020-02-20] MEDS: FLUDROCORTISONE ACETATE 0.1 MG TABLET PO ×2 (08:59→20:08)
[2020-02-20] MEDS: MEGESTROL ACETATE (*CHEMO) 20 MG TABLET PO (09:00)
[2020-02-20] MEDS: ROSUVASTATIN 10 MG TABLET 20 MG PO (09:00)
[2020-02-20] MEDS: ACETAMINOPHEN 325 MG TABLET 650 MG PO ×2 (09:03→20:08)
--- NOTE | 2020-02-20 13:11 | PM.IMPN ---
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 He then became tachycardia, possible atrial flutter. Rate better controlled on metoprolol. He appears to converted to normal sinus rhythm. Pacemaker was being considered but not felt to be necessary at this time per cardiology. Discharged delayed as we await insurance authorization (2) Atrial flutter with rapid ventricular response: Code(s): I48.92 - Unspecified atrial flutter Status: Acute Assessment and Plan: EKG looks to be atrial flutter. ST depression also present. After sublingual nitro and IV metoprolol he became asymptomatic. Recent Cath and echo done 02/07 with EF of 45% by echo with TAVR of aortic valve. Rate controlled and rhythm back in NSR. Continue metoprolol. (3) CAD (coronary artery disease): Code(s): I25.10 - Atherosclerotic heart disease of [place] coronary artery without angina pectoris Status: Acute Assessment and Plan: Patient had a non STEMI over a week ago. The patient had a cardiac catheterization and this was not amendable to intervention. The patient was also unable to receive a pacemaker at this time. The patient's troponin has trended down. The patient is on Plavix, aspirin, lopressor, fenofibrate and Crestor. Appreciate Cardiology input. (4) Acute hypokalemia: Code(s): E87.6 - Hypokalemia Status: Acute Assessment and Plan: Potassium on admission was 2.9. Repeat BMP on 02/15 revealed potassium 4.1 after a total of 160 mEq of KCL 02/14. Potassium has been stable past 3 days. Will repeat in the morning given that he is still here awaiting placement. (5) Anemia: Qualifiers: Anemia type: unspecified type Qualified Code(s): D64.9 - Anemia, unspecified Code(s): D64.9 - Anemia, unspecified Status: Acute Assessment and Plan: Hemoglobin low but stable in the 7-8 range. Hemoglobin earlier this year in the 10-11 range. Patient on Plavix and aspirin currently. Iron studies consistent with anemia chronic disease. (6) Gout: Qualifiers: Chronicity: unspecified Gout etiology: unspecified cause Gout site: unspecified site Qualified Code(s): M10.9 - Gout, unspecified Code(s): M10.9 - Gout, unspecified Status: Chronic Assessment and Plan: Stable. No evidence of acute flare. Continue allopurinol. (7) Hypothyroidism: Qualifiers: Hypothyroidism type: unspecified Qualified Code(s): E03.9 - Hypothyroidism, unspecified Code(s): E03.9 - Hypothyroidism, unspecified Status: Chronic Assessment and Plan: TSH normal in November. Continue with levothyroxine. (8) Hyperlipidemia: Qualifiers: Hyperlipidemia type: unspecified Qualified Code(s): E78.5 - Hyperlipidemia, unspecified Code(s): E78.5 - Hyperlipidemia, unspecified Status: Chronic Assessment and Plan: LFTs normal a few days ago. Continue with Crestor. Subjective Date/time seen: 02/20/20 13:11 Interval history: Date of visit 02/19. 79yo male status post inferior posterior MA presented with increasing shortness of breath 1 day after discharge. Complains of arthritic pain. Tylenol not helpful. Denies buttock pain. No CP or SOB. No issues overnight per RN Exam Narrative: Exam Narrative: 128/63 89 Gen - NARD Chest - left base inspiratory crackles, nml RR CV - RRR S1/S2; telemetry showing no alarms Abd - soft, NT/ND, positive bowel sounds Ext - trace pedal edema. Psych - alert, pleasant and cooperative. Skin - warm and dry; picturs of sacral area. showing dark red discolored patch with skin breakdown. Objective Data Vital Signs Vital Signs: Vital Signs - 24 hr 02/19/20 14:35 02/19/20 16:00 02/19/20 17:10 Temperature 9
[2020-02-20] MEDS: SILVERGEL (ELTA) 45 ML 1 APPLIC TOPICAL (13:49)
--- NOTE | 2020-02-20 15:30 | PCPTNOTE ---
The patient treatment was not able to be completed on 02/20/2020 due to patient unavailable. Will plan to continue treatment per plan of care.
[2020-02-20] MEDS: METOPROLOL TARTRATE 25 MG TABLET PO (17:49)
[2020-02-20] MEDS: FENOFIBRATE,MICRONIZED 48 MG TABLET PO (17:56)
[2020-02-21] VITALS (9 sets, daily range): BP systolic 103–147; BP diastolic 61–67; PULSE 69–92; RESP 12–20; TEMP 35.9–36.2; O2SAT 96–98
[2020-02-21 04:51] LABS: Blood Urea Nitrogen 10 mg/dL (9-20); Calcium 8.3 mg/dL (8.4-10.2); Carbon Dioxide 26 mmol/L (22-30); Chloride 107 mmol/L (98-107); Estimated CRCL calculation 60 ml/min; Estimated Glomerular Filt Rate > 60; Glucose 98 mg/dL (75-110); Magnesium 1.8 mg/dL (1.6-2.3); Potassium 2.9 mmol/L (3.4-5.0); Sodium 137 mmol/L (137-145)
[2020-02-21] MEDS: POTASSIUM CHLORIDE 20 MEQ PACKET (FOR LIQUID) 60 MEQ PO (06:01)
[2020-02-21] MEDS: LEVOTHYROXINE SODIUM 25 MCG TABLET PO (06:02)
[2020-02-21] MEDS: METOPROLOL TARTRATE 25 MG TABLET PO (06:02)
[2020-02-21] MEDS: ONDANSETRON INJ 4 MG/2 ML VIAL IV PUSH (06:02)
[2020-02-21] MEDS: MEGESTROL ACETATE (*CHEMO) 20 MG TABLET PO (08:20)
[2020-02-21] MEDS: CLOPIDOGREL BISULFATE 75 MG TABLET PO (08:20)
[2020-02-21] MEDS: LOSARTAN POTASSIUM 25 MG TABLET PO (08:20)
[2020-02-21] MEDS: FLUDROCORTISONE ACETATE 0.1 MG TABLET PO (08:21)
[2020-02-21] MEDS: allopurinoL 100 MG TABLET PO (08:21)
[2020-02-21] MEDS: ROSUVASTATIN 10 MG TABLET 20 MG PO (08:21)
[2020-02-21] MEDS: FOLIC ACID 1 MG TABLET PO (08:21)
[2020-02-21] MEDS: ASPIRIN 81 MG CHEWABLE TABLET PO (08:21)
[2020-02-21] MEDS: GABAPENTIN 100 MG CAPSULE PO ×2 (08:21→13:23)
[2020-02-21] MEDS: ACETAMINOPHEN 325 MG TABLET 650 MG PO (08:25)
--- NOTE | 2020-02-21 11:14 | PCDIET ---
Nutrition Follow-Up Complete: Nutrition Diagnosis: Increased protein/calorie needs related to increased demands for healing as evidenced by pressure ulcer. Nutrition Goal: Patient to consume 75% of meals/supplements. Goal met. Patient consumed 75-100% of most meals since last review. Remains on heart healthy diet which is appropriate. Last recorded weight is 93.6 kg which is up from last review (down from admission). Bowel Motility: Last documented BM on 02/18/20. Labs Reviewed: K (2.9), Alb (2.4), Lilly Ca (9.58) Meds Noted: Drisdol, Folic Acid, Megace, KCl Additional Notes: No documented skin breakdown. Will continue to monitor with same goal. Nutrition Monitoring and Evaluation: Follow up in 7 days.
--- NOTE | 2020-02-21 11:14 | PM.IMPN ---
Progress Note: A&P Assessment and Plan (1) Tachycardia-bradycardia syndrome: Code(s): I49.5 - Sick sinus syndrome Status: Acute Assessment and Plan: Cardiology consulted and appreciate input. Telemetry reviewed on 02/21/2020 with heart rate presently controlled. Now on metoprolol. Pacemaker considered but not felt to be necessary at this time per Cardiology. Continue PT/OT. Patient has been accepted at [facility]. Will discharge today. (2) Atrial flutter with rapid ventricular response: Code(s): I48.92 - Unspecified atrial flutter Status: Acute Assessment and Plan: Cardiology following as noted. Did receive sublingual nitroglycerin and IV metoprolol with relief of symptoms. Recent cardiac catheterization and echocardiogram in January 2020 with EF 45% with TAVR of aortic valve. Remains rate controlled at this time. Will continue metoprolol. (3) Acute hypokalemia: Code(s): E87.6 - Hypokalemia Status: Acute Assessment and Plan: Potassium back down to 2.9 today. Did receive 60 mEq potassium this morning. Repeat potassium level has been drawn. Await results. Will need to follow at [facility]. Repeat potassium 3.5. Will send out on 40 mEq of potassium daily but continue to follow at [facility]. (4) CAD (coronary artery disease): Qualifiers: Associated angina: without angina Coronary Disease-Associated Artery/Lesion type: [place] artery [place] vs. transplanted heart: [place] heart Qualified Code(s): I25.10 - Atherosclerotic heart disease of [place] coronary artery without angina pectoris Code(s): I25.10 - Atherosclerotic heart disease of [place] coronary artery without angina pectoris Status: Acute Assessment and Plan: Recent non STEMI. Did have cardiac catheterization but not amenable to intervention. Cardiology has been following as noted. Will continue ASA, Plavix, metoprolol and rosuvastatin. No current chest pain. (5) Anemia: Qualifiers: Anemia type: unspecified type Qualified Code(s): D64.9 - Anemia, unspecified Code(s): D64.9 - Anemia, unspecified Status: Acute Assessment and Plan: Hemoglobin stable at 8.0 today. Does remain on Plavix and ASA. Iron studies consistent with anemia of chronic disease. Can follow as an outpatient. (6) Gout: Qualifiers: Chronicity: unspecified Gout etiology: unspecified cause Gout site: unspecified site Qualified Code(s): M10.9 - Gout, unspecified Code(s): M10.9 - Gout, unspecified Status: Chronic Assessment and Plan: Stable. No evidence of acute flare. Continue allopurinol. (7) Hypothyroidism: Qualifiers: Hypothyroidism type: unspecified Qualified Code(s): E03.9 - Hypothyroidism, unspecified Code(s): E03.9 - Hypothyroidism, unspecified Status: Chronic Assessment and Plan: TSH normal in November. Continue with levothyroxine. (8) Hyperlipidemia: Qualifiers: Hyperlipidemia type: unspecified Qualified Code(s): E78.5 - Hyperlipidemia, unspecified Code(s): E78.5 - Hyperlipidemia, unspecified Status: Chronic Assessment and Plan: Continue rosuvastatin and fenofibrate. (9) DVT prophylaxis: Code(s): Z29.9 - Encounter for prophylactic measures, unspecified Status: Acute Assessment and Plan: Not on pharmacologic anticoagulation at this time. Time Spent With Patient Time with patient: 15 - 25 minutes Subjective Date/time seen: 02/21/20 11:14 Interval history: Date of Service: 02/21/2020. Admitted with recent non STEMI, hypokalemia, tachy-silvia syndrome. Patient is feeling good today. Does have arthritis pain in his hands. No chest pain. No shortness of breath. No abdominal pain. No nausea or vomiting. Review of Systems Review of Systems: Narrative: Feeling good. Constitutional: Constitutional: Denies chills and Denies fever(s) ENT
[2020-02-21 11:19] LABS: Potassium 3.5 mmol/L (3.4-5.0)
[2020-02-21] MEDS: SILVERGEL (ELTA) 45 ML 1 APPLIC TOPICAL (11:19)
--- NOTE | 2020-02-21 19:59 | PM.DS ---
DS: Admitting Diagnosis Admitting Diagnosis Admitting Diagnosis: Hypokalemia DS: Discharge Diagnosis Discharge Diagnosis (1) Tachycardia-bradycardia syndrome: Code(s): I49.5 - Sick sinus syndrome Status: Acute (2) Atrial flutter with rapid ventricular response: Code(s): I48.92 - Unspecified atrial flutter Status: Acute (3) Acute hypokalemia: Code(s): E87.6 - Hypokalemia Status: Acute (4) CAD (coronary artery disease): Qualifiers: Associated angina: without angina Coronary Disease-Associated Artery/Lesion type: [place] artery [place] vs. transplanted heart: [place] heart Qualified Code(s): I25.10 - Atherosclerotic heart disease of [place] coronary artery without angina pectoris Code(s): I25.10 - Atherosclerotic heart disease of [place] coronary artery without angina pectoris Status: Acute (5) Anemia: Qualifiers: Anemia type: unspecified type Qualified Code(s): D64.9 - Anemia, unspecified Code(s): D64.9 - Anemia, unspecified Status: Acute (6) Gout: Qualifiers: Chronicity: unspecified Gout etiology: unspecified cause Gout site: unspecified site Qualified Code(s): M10.9 - Gout, unspecified Code(s): M10.9 - Gout, unspecified Status: Chronic (7) Hypothyroidism: Qualifiers: Hypothyroidism type: unspecified Qualified Code(s): E03.9 - Hypothyroidism, unspecified Code(s): E03.9 - Hypothyroidism, unspecified Status: Chronic (8) Hyperlipidemia: Qualifiers: Hyperlipidemia type: unspecified Qualified Code(s): E78.5 - Hyperlipidemia, unspecified Code(s): E78.5 - Hyperlipidemia, unspecified Status: Chronic (9) DVT prophylaxis: Code(s): Z29.9 - Encounter for prophylactic measures, unspecified Status: Acute DS: Summary Hospital Course Reason for hospitalization: Shortness of breath. Hospital Course: Date of Service of Discharge: February 21, 2020. History of Present Illness: Patient is a 79-year-old gentleman with recent non STEMI who presented emergency room with complaint of shortness of breath. Patient was recently hospitalized with discharge on February 12, 2020. Patient has been alternate living with his sister and his daughter. Patient's daughter called EMS on day of presentation due to increased shortness of breath. Patient had undergone cardiac catheterization on his last visit due to non STEMI but not amenable to intervention. He has been on dual anti-platelet therapy platelets. On current presentation, patient was noted to have low potassium while in the emergency room. He did report cramping in legs and hands. Troponin was also noted to be elevated but decreasing from previous myocardial infarction. Given his symptoms, it was felt prudent to admit him for further evaluation and treatment. Course in Hospital: Patient was initially admitted to IMU year he subsequent transfer to medical/surgical floor and back to IMU during his stay. He was in the IMU at the time of discharge. He was noted to have bradycardia on admission but eventually was noted to have tachy-silvia syndrome. He was followed by Cardiology. Patient's rate was able to be controlled with metoprolol. Pacemaker was considered but not felt necessary at present time. During his stay his return to IMU result of atrial flutter with RVR. He did receive sublingual nitroglycerin IV metoprolol with relief of symptoms. Rate managed with metoprolol as already noted. Previous echocardiogram in January 2020 with EF of 45% with TAVR of aortic valve. He did continue ASA, Plavix and rosuvastatin in metoprolol with no further cardiac issues. Patient did have hypokalemia on admission. Initially improved but with large amounts of potassium. Potassium then began to drift down once again with level 2.9 on the morning of discharge. Did receive 60 mg of potassium in the morning with repeat level of 3.5. Plan to c
--- NOTE | 2020-02-24 13:22 | PC.NURSE ---
SARS is negative. Dr. Pham is aware.
== END 2020-02-21 15:35 | DRG 281 ==
LOC: ANHED 17:05 → ANHIMU 17:54 → ANH3MEDSUR 02-15 21:33 → ANHIMU 02-16 11:23
PROVIDERS: Internal Medicine; Nurse Practitioner; Physician Assistant; Admitting Provider Internal Medicine; Emergency Provider Emergency Medicine; PCP Internal Medicine; Visit Provider Internal Medicine
DX: I49.5 Sick sinus syndrome (principal); I21.4 Non-ST elevation (NSTEMI) myocardial infarction; I47.1 Supraventricular tachycardia; I48.92 Unspecified atrial flutter; I13.0 Hypertensive heart and chronic kidney disease with heart failure and stage 1 through stage 4 chronic kidney disease, or unspecified chronic kidney disease; N18.4 Chronic kidney disease, stage 4 (severe); I50.9 Heart failure, unspecified; E87.6 Hypokalemia; I25.10 Atherosclerotic heart disease of native coronary artery without angina pectoris; D64.9 Anemia, unspecified; M10.9 Gout, unspecified; E03.9 Hypothyroidism, unspecified; E78.5 Hyperlipidemia, unspecified; I95.1 Orthostatic hypotension; Z66 Do not resuscitate; Z96.643 Presence of artificial hip joint, bilateral; Z95.1 Presence of aortocoronary bypass graft; Z95.5 Presence of coronary angioplasty implant and graft; Z87.891 Personal history of nicotine dependence
CPT/HCPCS: 36415; 71045; 80048; 80053; 80069; 82607; 82728; 82746; 83540; 83550; 83735; 83880; 84132; 84484; 85025; 85027; 87635; 93005; 96372; 96374; 96375; 96376; 97110; 97116; 97161; 97164; 97165; 97530; 97535; 99285; A9270; C9803; G0378; J1650; J2405; J3475; U0003

== ENCOUNTER 2020-02-22 01:25 | Observation (INO) | payer MEDICARE, SELFPAY ==
[2020-02-22] VITALS (53 sets, daily range): BP systolic 96–151; BP diastolic 49–81; PULSE 81–94; RESP 13–24; TEMP 36–37.2; O2SAT 84–100; BMI 26.7
--- NOTE | ~2020-02-22 | XR_ITS ---
EXAMINATION: XR chest 2V DATE: 02/22/2020 01:58 INDICATION: Chest pain. TECHNIQUE: Frontal and lateral views of the chest were obtained. COMPARISON: Chest single view 02/14/2020, CT abdomen and pelvis 05/16/2011 FINDINGS: There is mild scarring at the lung apices. There are airspace opacities in the right lower lung zone and left mid and lower lung zones. There are small pleural effusions. No pneumothorax. The heart size is normal. There are changes of heart valve replacement and coronary artery bypass graftin g. IMPRESSION: 1. Airspace opacities in right lower lung zone and left mid and lower lung zones with worsening on th e right, consistent with atelectasis versus pneumonia. 2. Small pleural effusions. Reviewed, dictated and finalized at location A. IMPRESSION: 1. Airspace opacities in right lower lung zone and left mid and lower lung zone s with worsening on the right, consistent with atelectasis versus pneumonia. 2. Small pleural effusions.
--- NOTE | 2020-02-22 01:29 | ECG_ITS ---
Measurements Intervals [place] Rate: 95 P: [place]: 0 QRS: -58 QRSD: 145 T: -30 QT: 440 QTc: 555 Interpretive Statements ATRIAL TACHYCARDIA/FLUTTER LEFT AXIS DEVIATION RIGHT BUNDLE BRANCH BLOCK ABNORMAL ECG Electronically Signed On 02-22-2020 7:27:14 CDT by Devin Hudson D.O.
[2020-02-22 01:46] LABS: Basophils Percent Auto 0.5 % (0.2-1.2); Eosinophils Absolute Auto 0.3 K/mm3 (0-0.3); Eosinophils Percent Auto 4.2 % (0-4.4); Hematocrit 25.2 % (42.0-52.0); Hemoglobin 7.7 g/dL (14.0-18.0); Immature Granulocyte Absolute 0.02 K/mm3 (0.00-0.031); Immature Granulocyte Percent A 0.3 % (0-0.5); Lymphocytes Absolute Auto 1.35 K/mm3 (0.9-3.2); Lymphocytes Percent Auto 18.2 % (18.3-44.2); Mean Corpuscular HGB Conc 30.6 g/dl (32-36); Mean Corpuscular Hemoglobin 30.3 pg (26-34); Mean Corpuscular Volume 99.2 fl (80-100); Mean Platelet Volume 9.6 fl (7.4-10.4); Monocytes Absolute Auto 0.4 K/mm3 (0.1-0.6); Monocytes Percent Auto 5.9 % (2.6-8.5); Neutrophils Absolute Auto 5.3 K/mm3 (1.3-6.7); Neutrophils Percent Auto 70.9 % (45.5-73.1); Platelet Count Result 217 k/mm3 (150-375); Red Blood Count 2.54 M/mm3 (4.6-6.20); Red Cell Distribution Width 17.3 % (11.5-14.5); White Blood Count 7.4 K/mm3 (4.5-10.0)
[2020-02-22 01:57] LABS: Blood Urea Nitrogen 12 mg/dL (9-20); Calcium 8.3 mg/dL (8.4-10.2); Carbon Dioxide 26 mmol/L (22-30); Chloride 107 mmol/L (98-107); Estimated Glomerular Filt Rate 59; Glucose 100 mg/dL (75-110); Potassium 3.4 mmol/L (3.4-5.0); Sodium 135 mmol/L (137-145)
[2020-02-22 01:58] LABS: INR 1.4; Prothrombin Time 16.7 Seconds (11.1-14.7)
[2020-02-22 01:59] LABS: Partial Thromboplastin Time 37.5 SECONDS (22.3-36.8)
[2020-02-22 02:18] LABS: Troponin I 0.385 ng/mL (0.000-0.034)
[2020-02-22 05:02] LABS: Troponin I 0.402 ng/mL (0.000-0.034)
--- NOTE | 2020-02-22 05:38 | ED.CHESTPAIN ---
HPI - Chest Pain General Chief Complaint: Chest Pain Stated Complaint: cp Time Seen by Provider: 02/22/20 05:13 Source: patient Mode of arrival: EMS Limitations: no limitations History of Present Illness HPI narrative: This patient is a 79 year old male with history of CABG, [place] who presents via EMS for evaluation of chest pain. He states around midnight he develop mid chest pressure. This pain lasted approximately an hour. He took 2 nitroglycerin prior to coming to the ER. HE denies having associated nausea, vomiting, diaphroresis, shortness of breath or dizziness. He also reports he really want to be discharge but he was sent to ER because nursing staff at [facility] told him his oxygen was low. Patient has been admitted twice in the past 2 week for a NSTEMI and tachy arrhthmia. MD complaint: chest pain Related Data Home Medications Medication Instructions Recorded Confirmed acetaminophen [Tylenol] 650 mg PO Q12H 02/08/20 02/14/20 ergocalciferol (vitamin D2) 1,250 mcg PO WEEKLY 02/08/20 02/14/20 [Vitamin D2] fenofibrate nanocrystallized 48 mg PO QPM 02/08/20 02/14/20 fludrocortisone 0.1 mg PO Q12H 02/08/20 02/14/20 levothyroxine 25 mcg PO 0630 02/08/20 02/14/20 losartan 25 mg PO DAILY 02/08/20 02/14/20 megestrol 20 mg PO DAILY 02/08/20 02/14/20 Allergies Allergy/AdvReac Type Severity Reaction Status Date / Time Penicillins Allergy Unknown Rash Verified 02/08/20 11:44 Review of Systems Review of Systems: All systems reviewed & are unremarkable except as noted in HPI and below Constitutional: Constitutional: Denies chills and Denies fever(s) Cardiovascular: Cardiovascular: Reports chest pain, Denies rapid heart rate, Denies radiating jaw, neck or arm pain and Denies slow heart rate Respiratory: Respiratory: Denies cough, Denies dyspnea and Denies wheezing PMFSH Social History Social History Social History: Currently lives with his sister who is durable power pier worker. He is . He had been living with a significant other in [place] but she has recently been diagnosed with terminal cancer. The patient decided to move back in with his sister as he is not able to take care for self. He designates himself to be a full code he also stays with his daughter as well. Patient tells me he wants to go back to [place]. Smoking packs per day: 2 Smoking cigarettes per day: 40.0 Years smoked: 40 Smoking pack-years: 80.00 Smoking status: Former smoker Tobacco type: cigarettes Second hand tobacco smoke exposure: Yes Smoking end date: 09/21/16 Alcohol intake: never Substance use: never Substance use type: does not use Additional living arrangements comments: Sister Additional occupation/education comments: [employer] in [place] Gender identity (if verbalized by the patient): Male Spiritual care concerns: No Agree to blood products: Yes Exam Const: General: no acute distress and alert Orientation/consciousness: patient oriented x3 Eyes: EOM: EOMs intact bilaterally Chest: Chest palpation & inspection: normal inspection of the chest Resp: Effort & Inspection: normal respiratory effort and no retractions Auscultation: clear to auscultation bilaterally Cardio: Rate: regular rate Rhythm: abnormal rhythm irregularly irregular Heart sounds: no murmurs GI: Inspection: non-distended Auscultation: normal bowel sounds Skin: General skin exam: pallor Rashes: no rashes Neuro: General: patient oriented x3 Psych: Mental Status: mental status grossly normal Affect: normal affect Course Reevaluation(s) Reevaluation #1: I Discussed with patient that given his history he will need to be admitted for observation. Patient states he does not want to be admitted. He states he does not want to be resuscitated . Date: 02/22/20 Time: 06:30 Reevaluation #2: Nursing staff states patient has changed his mind and h
--- NOTE | 2020-02-22 07:50 | PC.NURSE ---
This patient, Art Sousa, was admitted to IMU Room 204-01. Patient/family oriented to hospital policies and general routines including ID bracelet, bed and alarms, visiting hours, pain management, procedures, bathroom and other care routines, personal items, smoking policy, room service/diet, and visiting hours. Valuables list has been completed. Information on how to activate the Rapid Response Team has been discussed. Patient/Family are encouraged to report perceived risks to care and to ask questions if they do not understand what they are told or what they should do.
[2020-02-22 08:11] LABS: Troponin I 0.384 ng/mL (0.000-0.034)
--- NOTE | 2020-02-22 08:46 | PM.CNCAR ---
Assessment and Plan Additional Plan This is a 79-year-old gentleman with: Severe diffuse multivessel coronary disease as detailed above identified in detailed in the catheter finisher and inspector on February 07 when he presented with a acute posterior infarction. This is obviously a completed event since his [place] right coronary is totally closed and his diffusely chronically diseased RCA vein graft has finally becomes completely occluded as well. He does have scattered disease throughout the left coronary as described above and as such occasional ischemic chest pain is not to be unexpected. The patient otherwise does not appear to be unstable. I would like to suggest adding isosorbide to his current regimen as detailed above. I would also suggest giving him couple of units of packed red blood cells since we are treating ischemic chest pain medically and hemoglobin of 7.7 certainly makes this more difficult. Ultimately the facilities that are caring for this gentleman need to be understand clearly that he has diffusely diseased coronary arteries and that occasional ischemic chest pain is not unexpected and does not necessarily have to result in readmission to the hospital like this. His ultimate disposition which he would like his to live in the [facility] where he has extended family down there. Apparently his this sister with whom he was living in this area is elderly frail and also seriously ill and not able to provide care for him any longer. Elder Keys MD [facility] History of Present Illness History of Present Illness Consult date/time: Date of service: 02/22/20 08:46 Consult reason: chest pain Reason For Visit: Unstable angina Narrative: This is a 79-year-old man with a history of coronary artery disease and valvular heart disease who came to the emergency department and in the middle of the night or early this morning with some chest pain that occurred while he was at [place] for rehab. They gave him some nitroglycerin over there he patient is not sure if the pain responded to the nitroglycerin are not it took about an hour for the symptoms to subside after he received that. Because of the symptoms he was sent to the emergency room for evaluation and admitted to the hospital. He was just discharged yesterday so he was not even home for 24 hours. This is a gentleman who presented to the hospital originally on February 07 with acute posterior infarction. He is known to have extensive coronary disease with previous bypass grafting. Angiographically the acute infarction was attributed to abrupt occlusion of his right coronary vein graft. His [place] right coronary artery has been chronically occluded. The right coronary vein graft is known to be diffusely diseased with percutaneous stenting that was performed on this graft in 2005 and again in 2010. Was on-call and brought the patient emergently to the catheter finisher and inspector as well as requested. I was able to traverse the entire length of the graft into the distal RCA with a guidewire but despite making a multitude of inflations along the entire length of the graft there was no orthodox of antegrade flow into the vessel. This was therefore felt to be a completion of this infarction which she had couple of other times as mentioned above and no further revascularization of his RCA was felt to be realistic. His left coronary artery is also diffusely diseased he has a high-grade stenosis in the mid LAD with a patent NADEEN graft distal to that. His original bypass surgery also involved a graft to his OM circumflex branch which was known to be occluded in the past. This was treated percutaneously with the left main coronary stent. The left main stent was found to be patent at the time of the emergency angiogram on February 07 the remainder of the circumflex is moderately diffusely diseased. The patient also was known in the past to have aortic valve stenosis. He lives some of the year in [place] and some of the year in the [facility]
[2020-02-22] MEDS: ISOSORBIDE MONONITRATE 30 MG TAB.ER.24H PO (11:39)
[2020-02-22] MEDS: SODIUM CHLORIDE 0.9% IV 250 ML 30 ML IV CONT (11:40)
[2020-02-22] MEDS: GABAPENTIN 100 MG CAPSULE PO ×2 (14:09→17:35)
[2020-02-22] MEDS: FENOFIBRATE,MICRONIZED 48 MG TABLET PO (17:35)
--- NOTE | 2020-02-22 17:52 | PM.IMHP ---
H&P: HPI History of Present Illness Chief complaint: Unstable angina Narrative: Art Sousa is a 79 year old male presented with a acute posterior infarction in february 07. Pt admitted again with chest pain last night pt had been recently discharge to [facility] after having a IN here in january. Pt has extensive cardiac history, He is known to have extensive coronary disease with previous bypass grafting. Pt mentions bilateral hip pains, chest pain is resolved now as per patient, wants more for joint and hip pain Seen by cardiology adviced medical management only, not for any intervention. Pt was found to be anaemic on labs pt will need blood transfusion while in the hospital. Review of Systems Review of Systems: All systems reviewed & are unremarkable except as noted in HPI and below Cardiovascular: Cardiovascular: Reports chest pain and Reports dyspnea Comments: Resolved Integumentary/Breasts: Comments: BL hip pains PMFSH Past Medical History Medical History Angina at rest Arthritis CAD (coronary artery disease) of artery bypass graft Cataracts, bilateral CHF (congestive heart failure) Chronic renal failure, stage 4 (severe) GERD (gastroesophageal reflux disease) GI bleed Gout Hyperchloremia Hyperlipidemia Hypertension Hypothyroidism Kidney stone Normal colonoscopy Sinus trouble Skin cancer STEMI (ST elevation myocardial infarction) Surgical History Surgical History History of cardiac cath History of removal of pigmented skin lesion History of total replacement of both hip joints Hx of CABG 3 vessel S/P aortic valve replacement TAVR Stented coronary artery Multiple stents Family History Family History Father Cerebrovascular accident Patient's father is Acute myocardial infarction Mother Family history of malignant neoplasm of ovary Patient's mother is Sibling Patient's brother is Acute myocardial infarction Social History Social History Social History: Currently lives with his sister who is durable power criminal attorney. He is . He had been living with a significant other in [place] but she has recently been diagnosed with terminal cancer. The patient decided to move back in with his sister as he is not able to take care for self. He designates himself to be a full code he also stays with his daughter as well. Patient tells me he wants to go back to [place]. Smoking packs per day: 2 Smoking cigarettes per day: 40.0 Years smoked: 40 Smoking pack-years: 80.00 Smoking status: Former smoker Tobacco type: cigarettes Second hand tobacco smoke exposure: Yes Smoking end date: 09/21/16 Alcohol intake: never Substance use: never Substance use type: does not use Additional living arrangements comments: Sister Additional occupation/education comments: [employer] in [place] Gender identity (if verbalized by the patient): Male Spiritual care concerns: No Agree to blood products: Yes Meds Home Medications and Allergies Home Medications Medication Instructions Recorded Confirmed Type allopurinol 100 mg tablet 100 mg PO DAILY #30 tablet 09/15/19 02/22/20 Rx folic acid 1 mg tablet 1 mg PO DAILY #30 tablet 09/15/19 02/22/20 Rx gabapentin 100 mg capsule 100 mg PO TID #90 cap 09/15/19 02/22/20 Rx acetaminophen [Tylenol] 650 mg PO Q12H 02/08/20 02/22/20 History ergocalciferol (vitamin D2) 1,250 mcg PO WEEKLY 02/08/20 02/22/20 History [Vitamin D2] fenofibrate nanocrystallized 48 mg PO QPM 02/08/20 02/22/20 History fludrocortisone 0.1 mg PO Q12H 02/08/20 02/22/20 History levothyroxine 25 mcg PO 0630 02/08/20 02/22/20 History losartan 25 mg PO DAILY 02/08/20 02/22/20 History m
[2020-02-22] MEDS: FLUDROCORTISONE ACETATE 0.1 MG TABLET PO (20:07)
[2020-02-22] MEDS: METOPROLOL TARTRATE 25 MG TABLET PO (20:08)
[2020-02-23] VITALS: PULSE 91
[2020-02-23 04:00] VITALS: BP 135/66; PULSE 83; PULSE 91; RESP 18; TEMP 36.5; O2SAT 99
[2020-02-23 04:44] LABS: Hematocrit 30.6 % (42.0-52.0); Hemoglobin 9.9 g/dL (14.0-18.0); Mean Corpuscular HGB Conc 32.4 g/dl (32-36); Mean Corpuscular Hemoglobin 29.9 pg (26-34); Mean Corpuscular Volume 92.4 fl (80-100); Mean Platelet Volume 10.2 fl (7.4-10.4); Platelet Count Result 229 k/mm3 (150-375); Red Blood Count 3.31 M/mm3 (4.6-6.20); Red Cell Distribution Width 18.6 % (11.5-14.5); White Blood Count 8.2 K/mm3 (4.5-10.0)
[2020-02-23 04:59] LABS: Blood Urea Nitrogen 11 mg/dL (9-20); Calcium 8.9 mg/dL (8.4-10.2); Carbon Dioxide 25 mmol/L (22-30); Chloride 106 mmol/L (98-107); Estimated CRCL calculation 55 ml/min; Estimated Glomerular Filt Rate > 60; Glucose 93 mg/dL (75-110); Potassium 3.5 mmol/L (3.4-5.0); Sodium 136 mmol/L (137-145)
[2020-02-23] MEDS: LEVOTHYROXINE SODIUM 25 MCG TABLET PO (06:40)
[2020-02-23 08:00] VITALS: BP 146/74; PULSE 93; PULSE 94; RESP 22; TEMP 36.2; O2SAT 97
[2020-02-23] MEDS: ISOSORBIDE MONONITRATE 30 MG TAB.ER.24H PO (09:50)
[2020-02-23] MEDS: allopurinoL 100 MG TABLET PO (09:50)
[2020-02-23] MEDS: CLOPIDOGREL BISULFATE 75 MG TABLET PO (09:50)
[2020-02-23 09:51] VITALS: PULSE 94
[2020-02-23] MEDS: MEGESTROL ACETATE (*CHEMO) 20 MG TABLET PO (09:51)
[2020-02-23] MEDS: FOLIC ACID 1 MG TABLET PO (09:51)
[2020-02-23] MEDS: METOPROLOL TARTRATE 25 MG TABLET PO (09:51)
[2020-02-23] MEDS: POTASSIUM CHLORIDE 20 MEQ TABLET.ER 40 MEQ PO (09:51)
[2020-02-23] MEDS: ASPIRIN 81 MG CHEWABLE TABLET PO (09:51)
[2020-02-23] MEDS: LOSARTAN POTASSIUM 25 MG TABLET PO (09:52)
[2020-02-23] MEDS: GABAPENTIN 100 MG CAPSULE PO ×2 (09:52→17:35)
[2020-02-23] MEDS: FLUDROCORTISONE ACETATE 0.1 MG TABLET PO (09:52)
[2020-02-23] MEDS: ROSUVASTATIN 10 MG TABLET 20 MG PO (09:55)
[2020-02-23 12:00] VITALS: BP 131/64; PULSE 93; PULSE 96; RESP 24; TEMP 36.3; O2SAT 94
--- NOTE | 2020-02-23 12:23 | PM.PNCARD ---
Progress Note: A&P Assessment and Plan (1) Unstable angina: Code(s): I20.0 - Unstable angina Status: Acute Assessment and Plan: Transfused yesterday. Isosorbide mononitrate was started. Chest pain would be expected with his extensive disease. This does not necessarily have to result in readmissions to the hospital. He has p.r.n. nitroglycerin to use if he should have chest discomfort . (2) CAD (coronary artery disease): Qualifiers: Coronary Disease-Associated Artery/Lesion type: [place] artery [place] vs. transplanted heart: [place] heart Associated angina: without angina Qualified Code(s): I25.10 - Atherosclerotic heart disease of [place] coronary artery without angina pectoris Code(s): I25.10 - Atherosclerotic heart disease of [place] coronary artery without angina pectoris Status: Acute Assessment and Plan: Severe multi-vessel coronary disease with recent acute posterior infarction. Continue aspirin, clopidogrel, losartan, metoprolol tartrate, rosuvastatin. Isosorbide mononitrate as above. (3) Anemia: Qualifiers: Anemia type: unspecified type Qualified Code(s): D64.9 - Anemia, unspecified Code(s): D64.9 - Anemia, unspecified Status: Acute Assessment and Plan: Transfused yesterday. CBC next week. (4) Hypokalemia: Code(s): E87.6 - Hypokalemia Status: Acute Assessment and Plan: Supplement potassium today. Would like him to have a total of 80 mEq today. BMP next week. Additional Plan OK to discharge back to [facility] from a cardiac standpoint See discharge instructions for follow-up Plan discussed with Dr Quintanilla [id number] 02/23/2020 Subjective Date/time seen: 02/23/20 12:23 Interval history: Follow-up for: Severe diffuse multivessel coronary artery disease, angina, anemia, debility Date of service: 02/22 Subjective: Having a lot of arthritis pain. Denied chest discomfort, shortness of breath or lightheadedness. Review of Systems Constitutional: Constitutional: Reports lethargy Eyes: Eyes: Denies blurry vision ENT: Reports Normal hearing present and Denies epistaxis Cardiovascular: Cardiovascular: Denies chest pain, Denies pedal edema, Denies dyspnea and Denies orthopnea Respiratory: Respiratory: Denies dyspnea and Denies dyspnea on exertion Gastrointestinal: Gastrointestinal: Denies abdominal pain, Denies nausea and Denies vomiting Musculoskeletal: Musculoskeletal: Reports arthralgias Neurologic: Denies dizziness Psychiatric: Psychiatric: Reports anxiety Endocrine: Endocrine: Reports fatigue Hematologic/Lymphatic: Hematologic/Lymphatic: Reports easy bruising Allergic/Immunologic: Allergic/Immunologic: Denies wheezing Exam Const: General: no acute distress Other: Elderly white male sitting in bed complaining of arthritis pain. HENMT: Mouth: Yes moist mucous membranes Eyes: Sclera: sclerae normal Pupils: Equal, round and reactive pupils present Neck: Neck: supple and no JVD Resp: Effort & Inspection: normal respiratory effort and able to speak in complete sentences Auscultation: clear to auscultation bilaterally Cardio: Jugular venous distension: no JVD Rate: regular rate Rhythm: regular rhythm Other: Soft systolic crescendo decrescendo murmur which does not radiate from the left sternal border GI: GI Palp: Yes Soft to palpation Auscultation: normal bowel sounds Skin: General skin exam: normal color Neuro: Cranial nerves: Yes Equal, round and reactive pupils present Cognition (Neuro): normal cognition Extrem: General: normal to inspection and no pedal edema Objective Data Vital Signs Vital Signs: Vital Signs - 24 hr 02/22/20 12:33 02/22/20 13:35 02/22/20 14:00 Temperature 37.2 C 36.9 C Pulse Rate 93 94 94 Respiratory Rate 22 H 2
[2020-02-23] MEDS: POTASSIUM CHLORIDE 20 MEQ TABLET 40 MEQ PO (12:42)
[2020-02-23 13:24] VITALS: BMI 26.7
--- NOTE | 2020-02-23 14:25 | PM.DS ---
DS: Admitting Diagnosis Admitting Diagnosis Admitting Diagnosis: Unstable angina DS: Discharge Diagnosis Discharge Diagnosis (1) Chest pain: Code(s): R07.9 - Chest pain, unspecified Status: Acute Assessment and Plan: Resolved, pt has extensive cardiac history, seen by cardiology Isosorbide mononitrate was started. NTG subl prn chest pain can be used. Pt is stable to be discharged back to [facility]. (2) Elevated troponin: Code(s): R79.89 - Other specified abnormal findings of blood chemistry Status: Acute Assessment and Plan: Minimal elevation secondary to underlying cardiac disease, severe multi-vessel coronary disease with recent acute posterior infarction. (3) Anemia: Qualifiers: Anemia type: unspecified type Qualified Code(s): D64.9 - Anemia, unspecified Code(s): D64.9 - Anemia, unspecified Status: Acute Assessment and Plan: Hb is 7.7 on admission pt to have blood transfusion today. hb is 9. (4) Unstable angina: Code(s): I20.0 - Unstable angina Status: Acute Assessment and Plan: recent [place] and history of extensive hear disease. Medically managed continue same previous cardiac medications watch for any further chest pains. ISMN added by cardiology. DS: Summary Time Spent with Patient Time attestation: Total time spent providing and/or coordinating discharge services:38 minutes on day of dischrage Exam Const: General: well developed Nutritional Appearance: well nourished Neck: Neck: supple Chest: Chest palpation & inspection: normal inspection of the chest Resp: Effort & Inspection: normal respiratory effort Auscultation: clear to auscultation bilaterally Cardio: Jugular venous distension: no JVD Rhythm: regular rhythm Heart sounds: S1 normal heart sound present and S2 normal heart sound present GI: Inspection: normal to inspection Auscultation: normal bowel sounds Skin: General skin exam: normal color and dry skin Neuro: Cranial nerves: Yes CN's II-XII intact bilaterally and Yes Equal, round and reactive pupils present Cognition (Neuro): normal cognition Speech: normal speech Motor exam (neuro): 5/5 motor strength present throughout Extrem: General: normal to inspection Psych: Appearance: grossly normal Mental Status: mental status grossly normal DS: Data Data Completed and Pending Labs on day of discharge: Labs from last 24 hours 02/23/20 02/23/20 02/22/20 04:18 04:18 08:58 WBC 8.2 RBC 3.31 L Hgb 9.9 L Hct 30.6 L MCV 92.4 D MCH 29.9 MCHC 32.4 RDW 18.6 H Plt Count 229 MPV 10.2 Sodium 136 L Potassium 3.5 Chloride 106 Carbon Dioxide 25 BUN 11 Creatinine 1.10 Estim Creat Clear Calc 55 Estimated GFR > 60 Glucose 93 Calcium 8.9 Blood Type O Positive Antibody Screen Negative Crossmatch See Detail Discharge Plan Discharge Attending physician on discharge: Yvonne Ricci Consulting providers: Chelsey Quintanilla Discharging Clinician: Yvonne Ricci Anticipated Discharge Date/Time: 02/23/20 14:24 Patient Disposition: SNF Activity: other - see discharge instructions Diet: heart healthy Discharge Instructions: CARDIOLOGY DISCHARGE INSTRUCTIONS ACTIVITY: No strenuous exercise or activity but may participate fully in physical therapy and occupational therapy DO NOT STOP YOUR MEDICATIONS! ONLY YOUR PHOTOVOLTAIC INSTALLER CAN STOP THE FOLLOWING MEDICATIONS: Aspirin Clopidogrel Rosuvastatin Isosorbide mononitrate Losartan Metoprolol tartrate PLEASE CALL THE OFFICE IF THESE MEDICATIONS NEED TO BE STOPPED Read food labels for high levels of sodium, no added salt, avoid fried foods, eat more fruits and vegetables. Stay hydrated but do not drink any more than 2 L (68 oz) of fluid per day. If you have chest pain unrelieved by nitroglycerin call 911 immediately FOLLOW-UP: Follow up with [facility] Medical
[2020-02-23 16:00] VITALS: PULSE 94
[2020-02-23] MEDS: FENOFIBRATE,MICRONIZED 48 MG TABLET PO (17:35)
[2020-02-23] MEDS: SILVERGEL (ELTA) 45 ML 1 APPLIC TOPICAL (17:36)
== END 2020-02-23 18:53 ==
LOC: ANHED 07:23 → ANHIMU 08:33
PROVIDERS: Admitting Provider Hospitalist; Emergency Provider General Practice; PCP Internal Medicine; Visit Provider Family Medicine
DX: I25.110 Atherosclerotic heart disease of native coronary artery with unstable angina pectoris (principal); R79.89 Other specified abnormal findings of blood chemistry; D64.9 Anemia, unspecified; E87.6 Hypokalemia; I25.2 Old myocardial infarction; Z95.1 Presence of aortocoronary bypass graft; Z87.891 Personal history of nicotine dependence; Z79.899 Other long term (current) drug therapy
CPT/HCPCS: 36415; 36430; 71046; 80048; 84484; 85025; 85027; 85610; 85730; 86850; 86900; 86901; 86923; 93005; 99285; A9270; G0378; J7050; P9016

== ENCOUNTER 2020-03-11 14:00 | Inpatient (IN) | payer MEDICARE, SELFPAY ==
[2020-03-11] VITALS (12 sets, daily range): BP systolic 106–148; BP diastolic 47–88; PULSE 74–88; RESP 16–23; TEMP 36.5–36.8; O2SAT 91–100; BMI 25.5
--- NOTE | ~2020-03-11 | XR_ITS ---
EXAMINATION: XR chest 1V portable DATE: 03/16/2020 05:49 INDICATION: Respiratory failure TECHNIQUE: frontal view of the chest was obtained. COMPARISON: Chest radiograph dated 03/15/2020 FINDINGS: Endotracheal tube tip 3.8 cm above the clara. Right internal jugular central venous catheter with di stal tip at the midsuperior vena cava. Nasogastric tube extends below the left hemidiaphragm with di stal tip collimated off the study. No significant interval change in bilateral patchy airspace opacities. No pneumothorax or definitive pleural effusion. Heart size is normal. Median sternotomy wires and mediastinal surgical clips are se en, likely from prior coronary artery bypass grafting. Aortic valve repair. IMPRESSION: 1. No significant interval change in bilateral patchy airspace opacities consistent with pneumonia an d/or pulmonary edema. Reviewed, dictated and finalized at location A. IMPRESSION: 1. No significant interval change in bilateral patchy airspace opacities consis tent with pneumonia and/or pulmonary edema.
--- NOTE | ~2020-03-11 | XR_ITS ---
EXAMINATION: XR chest 1V portable DATE: 03/20/2020 05:59 INDICATION: Respiratory failure TECHNIQUE: frontal view of the chest was obtained. COMPARISON: Chest radiograph dated 03/19/2020 FINDINGS: Endotracheal tube tip 3.5 cm above the clara. Nasogastric tube tip in the body of the stomach. Right internal jugular central venous catheter with distal tip at the mid superior vena cava. Minimal change in bilateral diffuse interstitial and subtle patchy airspace opacities throughout both lungs. Small bilateral pleural effusions. No pneumothorax. Cardiomediastinal silhouette is normal. M edian sternotomy wires and mediastinal surgical clips are seen, likely from prior coronary artery byp ass grafting. Aortic valve repair. IMPRESSION: 1. No significant change in bilateral lung disease which could represent pulmonary edema and/or pneum onia. Reviewed, dictated and finalized at location A. IMPRESSION: 1. No significant change in bilateral lung disease which could represent pulmon moi edema and/or pneumonia.
--- NOTE | ~2020-03-11 | XR_ITS ---
EXAMINATION: XR abdomen NG/feed tube insert EXAM DATE: 03/14/2020 21:46 INDICATION: Nasogastric tube placement. TECHNIQUE: Frontal projection(s) of the abdomen for interpretation. There is no prior study for alexandra shirley. FINDINGS: Feeding tube tip is below the gastroesophageal junction. The side port is above.. This cou ld be safely advanced 5-10 cm. There are sternotomy wires. Some patchy bibasilar airspace disease. Ch olecystectomy clips. Nonobstructive upper abdominal bowel gas pattern. IMPRESSION: Feeding tube tip in stomach but could be safely advanced 5-10 cm. Reviewed, dictated and finalized at location G.
--- NOTE | ~2020-03-11 | XR_ITS ---
EXAMINATION: XR chest 1V portable EXAM DATE: 03/18/2020 14:21 INDICATION: Intubation. TECHNIQUE: Portable AP frontal chest x-ray was obtained. Comparison is made to prior examination from earlier same date. FINDINGS: Endotracheal tube tip is 3 centimeters above the clara (ideal range is between 2 to 5 cm). There is a nasogastric in position. There is a right-sided IJ venous line overlying expected positi on. There is moderate amount of bilateral ill-defined edema and/or pneumonia. There are no sizable pleur al effusions. There is no pneumothorax suspected. Sternotomy wires are present without findings t o suggest sternal dehiscence. Cardiac valve replacement. Cardiomediastinal silhouette is normal. Dens e mitral annular calcifications. There is aortic arteriosclerosis. The bones and soft tissues are u nremarkable. There are mild bony degenerative changes. There is aortic arteriosclerosis. There is n o significant interval change compared to prior exam. IMPRESSION: 1. Line(s) and tube(s) in position. 2. Stable bilateral edema and/or pneumonia. Reviewed, dictated and finalized at location A.
--- NOTE | ~2020-03-11 | XR_ITS ---
EXAMINATION: XR chest 1V portable EXAM DATE: 03/14/2020 20:21 INDICATION: Shortness of breath and difficulty breathing. TECHNIQUE: Portable AP frontal chest x-ray was obtained. Comparison is made to prior examination from 03/11/2020. FINDINGS: Development of ill-defined bilateral perihilar distribution airspace disease likely acute p rocess such as edema or infection. No confluent consolidation or pneumothorax. No sizable pleural eff usion. Sternotomy wires. Cardiac valve replacement. There is aortic arteriosclerosis. There are mild bony degenerative changes. IMPRESSION: Developing bilateral perihilar ill-defined edema or infection. Reviewed, dictated and finalized at location A.
--- NOTE | ~2020-03-11 | XR_ITS ---
EXAMINATION: XR chest 1V DATE: 03/11/2020 15:05 INDICATION: Hypoxia. Transient alteration of awareness. TECHNIQUE: frontal view of the chest was obtained. COMPARISON: Chest radiograph dated 02/22/2020 FINDINGS: Biapical pleural-parenchymal scarring. Hazy opacities throughout the left lung. Streaky and patchy ai rspace opacities in the right upper, left mid and bilateral lower lung zones. No pneumothorax. The ca rdiomediastinal silhouette is normal. Median sternotomy wires and mediastinal surgical clips are seen , likely from prior coronary artery bypass grafting. Likely aortic valve repair. Cholecystectomy clip s in the right upper quadrant. IMPRESSION: 1. Bilateral airspace opacities representing small left and tiny right pleural effusions and scattere d atelectasis and/or pneumonia. Reviewed, dictated and finalized at location A. IMPRESSION: 1. Bilateral airspace opacities representing small left and tiny right pleural effusions and scattered atelectasis and/or pneumonia.
--- NOTE | ~2020-03-11 | XR_ITS ---
MODIFIED ESOPHAGRAM HISTORY: Impaired swallowing TECHNIQUE: Modified barium esophagram was performed on 03/12/2020. I administered fluoroscopy and perf ormed the exam with speech pathologist. Patient was seated for lateral fluoroscopic imaging for eklly stion of thin liquids, pudding, solids and quantified amounts, followed by thin liquids in uncontroll ed amounts. This was recorded on tape. A single fluoroscopic spot image was also recorded. The DAP fo r this procedure was 2.984 Gycm2. The amount of fluoroscopy time used during this procedure was 4.5 m inutes. FINDINGS: Oral stage: Adequate function. Pharyngeal stage: Small amount of laryngeal penetration and trace aspiration was present with thin an d nectar thick liquids. Cervical/esophageal stage: Adequate function. IMPRESSION: Small amount of laryngeal penetration and trace aspiration with thin and nectar thick liq uids. Please correlate with speech pathologist findings and specific feeding recommendations. Reviewed, dictated and finalized at location A. IMPRESSION: Small amount of laryngeal penetration and trace aspiration with thi n and nectar thick liquids. Please correlate with speech pathologist findings and specific feeding recommendations.
--- NOTE | ~2020-03-11 | XR_ITS ---
EXAMINATION: XR chest 1V portable EXAM DATE: 03/18/2020 06:14 INDICATION: Respiratory failure. TECHNIQUE: Portable AP frontal chest x-ray was obtained. Comparison is made to prior examination from 03/16/2020, 03/17/2020. FINDINGS: Endotracheal tube tip is 5 centimeters above the clara (ideal range is between 2 to 5 cm). There is a nasogastric tube seen with tip collimated off the study, but below the left hemidiaphrag m. There is a right-sided IJ venous line overlying expected position. Again there is moderate amount of bilateral ill-defined airspace disease with most confluence in the right lower lobe, acute edema and/or pneumonia. There are no sizable pleural effusions. There is n o pneumothorax suspected. Sternotomy wires are present without findings to suggest sternal dehiscen ce. Cardiomediastinal silhouette is normal. There is aortic arteriosclerosis. The bones and soft ti ssues are unremarkable. There are mild bony degenerative changes. There is no significant interval change compared to prior exam. IMPRESSION: 1. Line(s) and tube(s) in position. 2. Stable bilateral edema and/or pneumonia. Reviewed, dictated and finalized at location A.
--- NOTE | ~2020-03-11 | CT_ITS ---
EXAMINATION: CT brain wo con DATE: 03/11/2020 14:59 INDICATION: Hypoxia. Transient alteration of awareness. TECHNIQUE: Computed tomography (CT) of the head was performed without intravenous contrast. Sagittal and coronal reconstructions were performed. The dose-length product was 605.33 mGy-cm. COMPARISON: head CT dated 02/08/20 FINDINGS: Small old lacunar infarct at the head of the left caudate nucleus. No acute intracranial hemorrhage, acute infarction or abnormal extra axial fluid collection. There is mild scattered white matter hypoa ttenuation consistent with chronic small vessel ischemic disease. Symmetric prominence of the sulci c onsistent with mild age-appropriate diffuse cerebral volume loss. Ventricles are normal and symmetric . No mass/mass effect. Changes of bilateral intraocular lens replacement. The paranasal sinuses are c lear. Trace left mastoid effusion. Intracranial calcified cerebral atherosclerosis is noted. IMPRESSION: 1. No acute intracranial process. 2. Small old lacunar infarct at the head of the left caudate nucleus. 3. Age-related changes including mild diffuse volume loss and mild scattered white matter hypoattenua tion consistent with chronic small vessel ischemic disease. Reviewed, dictated and finalized at location A. IMPRESSION: 1. No acute intracranial process. 2. Small old lacunar infarct at the head of the left caudate nucleus. 3. Age-related changes including mild diffuse volume loss and mild scattered wh ite matter hypoattenuation consistent with chronic small vessel ischemic diseas e.
--- NOTE | ~2020-03-11 | XR_ITS ---
EXAMINATION: XR abdomen NG/feed tube rechec DATE: 03/20/2020 09:25 INDICATION: Nasogastric tube recheck TECHNIQUE: A supine view of the abdomen and lower chest was obtained for evaluation of feeding tube placement. COMPARISON: Chest radiograph dated 03/20/2020 and abdomen radiograph dated 03/18/2020 FINDINGS: Nasogastric tube tip in proximal side port in the body of the stomach. Endotracheal tube tip 2.6 cm a karlos the clara. Median sternotomy wires and mediastinal surgical clips are seen, likely from prior c oronary artery bypass grafting. Aortic valve repair. Diffuse bilateral interstitial and airspace opac ities which could represent pulmonary edema and/or pneumonia. Small left pleural effusion. Heart size is normal. Mitral annular calcification. IMPRESSION: 1. Nasogastric and endotracheal tubes in expected positions. 2. Diffuse bilateral lung disease which could represent pulmonary edema and/or pneumonia with small l eft pleural effusion. Reviewed, dictated and finalized at location A. IMPRESSION: 1. Nasogastric and endotracheal tubes in expected positions. 2. Diffuse bilateral lung disease which could represent pulmonary edema and/or pneumonia with small left pleural effusion.
--- NOTE | ~2020-03-11 | XR_ITS ---
EXAMINATION: XR chest 1V portable DATE: 03/19/2020 06:21 INDICATION: Respiratory failure TECHNIQUE: frontal view of the chest was obtained. COMPARISON: Chest radiograph dated 03/18/2020 FINDINGS: Endotracheal tube tip 3.0 cm above the clara. Nasogastric tube extends below the left hemidiaphragm with distal tip collimated off the study. Right internal jugular central venous catheter with distal tip at the cephalad superior vena cava. Bilateral diffuse mild interstitial and subtle patchy airspace opacities throughout both lungs. Possi ble small left pleural effusion although the costophrenic angle is excluded from the [id number]. N o pneumothorax. The cardiomediastinal silhouette is normal. Median sternotomy wires and mediastinal s urgical clips are seen, likely from prior coronary artery bypass grafting. Aortic valve repair. IMPRESSION: 1. No significant change in bilateral mild increased interstitial and patchy airspace opacities which could represent pulmonary edema and/or pneumonia. Reviewed, dictated and finalized at location A. IMPRESSION: 1. No significant change in bilateral mild increased interstitial and patchy ai rspace opacities which could represent pulmonary edema and/or pneumonia.
--- NOTE | ~2020-03-11 | XR_ITS ---
EXAMINATION: XR chest port-a-cath/central DATE: 03/15/2020 05:32 INDICATION: Central line placement. Mechanical ventilation. TECHNIQUE: frontal view of the chest was obtained. COMPARISON: Chest radiograph dated 03/14/2020 FINDINGS: Endotracheal tube tip 4.1 cm above the clara. Right internal jugular central venous catheter with di stal tip at the midsuperior vena cava. Nasogastric tube extends below the left hemidiaphragm with di stal tip collimated off the study. Left ventricular assist device with distal tip projecting over the apex of the left ventricle an traversed the aorta and an aortic valve repair. Increasing bilateral patchy airspace opacities and increased interstitial pattern with lower lung pre dominance. No pneumothorax or definitive pleural effusion. Heart size is normal. The cardiomediastina l silhouette is normal. Median sternotomy wires and mediastinal surgical clips are seen, likely from prior coronary artery bypass grafting. Additional surgical clips at the right neck. IMPRESSION: 1. Worsening patchy bilateral lung disease consistent with pneumonia and/or pulmonary edema. Reviewed, dictated and finalized at location A. IMPRESSION: 1. Worsening patchy bilateral lung disease consistent with pneumonia and/or pul monary edema.
--- NOTE | ~2020-03-11 | XR_ITS ---
EXAMINATION: XR chest 1V portable EXAM DATE: 03/17/2020 05:59 INDICATION: Respiratory failure. TECHNIQUE: Portable AP frontal chest x-ray was obtained. Comparison is made to prior examination from 03/16/2020, 03/15, 03/14. FINDINGS: Endotracheal tube tip is 4 centimeters above the clara (ideal range is between 2 to 5 cm). There is a nasogastric tube seen with tip collimated off the study, but below the left hemidiaphrag m. There is a right-sided IJ venous line overlying expected position. Again there is moderate amount of bilateral ill-defined airspace disease with most confluence in the right lower lobe, acute edema and/or pneumonia. There are no sizable pleural effusions. There is n o pneumothorax suspected. Sternotomy wires are present without findings to suggest sternal dehiscen ce. Cardiomediastinal silhouette is normal. There is aortic arteriosclerosis. The bones and soft ti ssues are unremarkable. There are mild bony degenerative changes. There is no significant interval change compared to prior exam. IMPRESSION: 1. Line(s) and tube(s) in position. 2. Stable bilateral edema and/or pneumonia. Reviewed, dictated and finalized at location A.
--- NOTE | ~2020-03-11 | XR_ITS ---
EXAMINATION: XR chest ET placement EXAM DATE: 03/14/2020 21:46 INDICATION: Respiratory failure. TECHNIQUE: Portable AP frontal chest x-ray was obtained. Comparison is made to prior examination from earlier same date. FINDINGS: Endotracheal tube tip is 5 centimeters above the clara (ideal range is between 2 to 5 cm). There is a nasogastric tube seen with tip collimated off the study, but below the left hemidiaphrag m. There is ill-defined bibasilar airspace disease, probably edema and/or infection. Upper lung zones ar e better penetrated on this examination. Cardiomediastinal silhouette is normal. There is no pneumoth orax suspected. There are no pleural effusions. Mild thoracic spondylosis. IMPRESSION: 1. ET tube in position. 2. Bibasilar edema and/or pneumonia not significantly changed. Reviewed, dictated and finalized at location .
--- NOTE | ~2020-03-11 | CT_ITS ---
EXAMINATION: CT cervical spine [facility] EXAM DATE: 03/12/2020 13:25 INDICATION: Neck pain and stiffness. TECHNIQUE: Spiral CT of the cervical spine was performed without contrast. Axial images were reviewe d. Coronal and sagittal reformatted images were also reviewed. The dose-length product (DLP) for thi s examination was 499.92 mGy-cm. The exposure was tailored according to patient size (auto mA exposu re control), and iterative reconstruction (ASIR) was used as additional dose reduction technique. ere is no prior study for comparison. FINDINGS: No endplate erosive changes. No jumped facet joints. The vertebral bodies are aligned in the AP dimension. There is mild to moderate disc disease from C2 through C6, mild at C6-7 and C7-T1. Surgical clips probably from endarterectomies. There are no acute fractures identified. The odontoid process is intact. The lateral masses of C1 line up with C2. Prevertebral soft tissue and pre-dens s pace are within normal limits. Level by level evaluation: C2-C3: Disc does not extend beyond the endplate margin. Uncovertebral joint arthropathy: None. Facet joint arthropathy: Mild right. Neural foraminal stenosis: Mild bilateral. Central canal stenosis: No stenosis. C3-C4: There is a mild diffuse disc bulge. Uncovertebral joint arthropathy: Mild right. Facet joint arthropathy: Mild bilateral. Neural foraminal stenosis: No stenosis. Central canal stenosis: No stenosis. C4-C5: There is a mild diffuse disc bulge. Uncovertebral joint arthropathy: Mild bilateral. Facet joint arthropathy: Mild to moderate bilateral. Neural foraminal stenosis: Mild to moderate right, mild left. Central canal stenosis: No stenosis. C5-C6: There is mild to moderate disc osteophyte complex. Uncovertebral joint arthropathy: Mild to moderate right, mild left. Facet joint arthropathy: Mild to moderate bilateral. Neural foraminal stenosis: Mild right. Central canal stenosis: No stenosis. C6-C7: There is a mild diffuse disc bulge. Uncovertebral joint arthropathy: None. Facet joint arthropathy: Mild bilateral. Neural foraminal stenosis: No stenosis. Central canal stenosis: No stenosis. C7-T1: Disc does not extend beyond the endplate margin. Uncovertebral joint arthropathy: None. Facet joint arthropathy: Mild bilateral. Neural foraminal stenosis: No stenosis. Central canal stenosis: No stenosis. IMPRESSION: 1. Mild to moderate cervical spondylosis. Reviewed, dictated and finalized at location B.
--- NOTE | ~2020-03-11 | XR_ITS ---
EXAMINATION: XR abdomen obstructive series EXAM DATE: 03/18/2020 09:02 INDICATION: Possible ileus. TECHNIQUE: Frontal projection(s) of the abdomen for interpretation. Comparison is made to prior exami nation from 03/17/2020. FINDINGS: Feeding tube tip projects over gastric cardia. The side port is probably just above the ga stroesophageal junction. This could be safely advanced 5-10 cm. There is some dense material, contras t within the colon. Nonobstructive bowel gas pattern. Hip replacements and bony degenerative changes. There are cholecystectomy clips. Some ill-defined bibasilar airspace disease. IMPRESSION: Feeding tube tip in stomach but could be safely advanced 5-10 cm. Nonobstructive bowel g as pattern. Reviewed, dictated and finalized at location A. IMPRESSION: Feeding tube tip in stomach but could be safely advanced 5-10 cm. Nonobstructive bowel gas pattern.
--- NOTE | 2020-03-11 14:20 | ECG_ITS ---
Measurements Intervals [place] Rate: 74 P: -25 DE: 86 QRS: -67 QRSD: 153 T: -52 QT: 455 QTc: 508 Interpretive Statements ECTOPIC ATRIAL RHYTHM WITH SHORT DE INTERVAL RIGHT BUNDLE BRANCH BLOCK LEFT ANTERIOR FASCICULAR BLOCK ABNORMAL ECG Electronically Signed On 03-12-2020 11:22:12 CDT by Devin Hudson D.O.
--- NOTE | 2020-03-11 14:24 | ED.GENADULT ---
HPI - General Adult General Chief complaint: Altered Mental Status Stated complaint: AMS, lethargic. A&ox4 per ems Time Seen by Provider: 03/11/20 14:06 History of Present Illness HPI narrative: Patient is a 79 y/o male sent from [place] for altered mental status. Patient states that he feels fine, although he admits that he has been having a cough for 2 weeks. The cough is relieved somewhat by cough medicine. He also has some chronic soreness in his tail bone area. Related Data Home Medications Medication Instructions Recorded Confirmed acetaminophen [Tylenol] 650 mg PO Q12H 02/08/20 02/22/20 ergocalciferol (vitamin D2) 1,250 mcg PO WEEKLY 02/08/20 02/22/20 [Vitamin D2] fenofibrate nanocrystallized 48 mg PO QPM 02/08/20 02/22/20 fludrocortisone 0.1 mg PO Q12H 02/08/20 02/22/20 levothyroxine 25 mcg PO 0630 02/08/20 02/22/20 losartan 25 mg PO DAILY 02/08/20 02/22/20 megestrol 20 mg PO DAILY 02/08/20 02/22/20 Allergies Allergy/AdvReac Type Severity Reaction Status Date / Time Penicillins Allergy Unknown Rash Verified 03/11/20 14:09 Review of Systems Constitutional: Constitutional: Denies chills, Denies fever(s), Denies headache(s) and Denies weakness Eyes: Eyes: Denies blurry vision ENT: Denies headache(s) and Denies neck pain Cardiovascular: Cardiovascular: Denies chest pain and Denies dyspnea Respiratory: Respiratory: Reports cough and Reports dyspnea Gastrointestinal: Gastrointestinal: Denies abdominal pain, Denies diarrhea, Denies nausea and Denies vomiting Genitourinary: Genitourinary: Denies hematuria and Denies dysuria Musculoskeletal: Musculoskeletal: Denies back pain and Denies neck pain Neurologic: Denies headache(s) and Denies weakness [facility] Past Medical History Medical History Angina at rest Arthritis CAD (coronary artery disease) of artery bypass graft Cataracts, bilateral CHF (congestive heart failure) Chronic renal failure, stage 4 (severe) GERD (gastroesophageal reflux disease) GI bleed Gout Hyperchloremia Hyperlipidemia Hypertension Hypothyroidism Kidney stone Normal colonoscopy Sinus trouble Skin cancer STEMI (ST elevation myocardial infarction) Surgical History Surgical History History of cardiac cath History of removal of pigmented skin lesion History of total replacement of both hip joints Hx of CABG 3 vessel S/P aortic valve replacement TAVR Stented coronary artery Multiple stents Family History Family History Father Cerebrovascular accident Patient's father is Acute myocardial infarction Mother Family history of malignant neoplasm of ovary Patient's mother is Sibling Patient's brother is Acute myocardial infarction Social History Social History Social History: Currently lives with his sister who is durable power ip technology transactions attorney. He is . He had been living with a significant other in [place] but she has recently been diagnosed with terminal cancer. The patient decided to move back in with his sister as he is not able to take care for self. He designates himself to be a full code he also stays with his daughter as well. Patient tells me he wants to go back to [place]. Smoking packs per day: 2 Smoking cigarettes per day: 40.0 Years smoked: 40 Smoking pack-years: 80.00 Smoking status: Former smoker Tobacco type: cigarettes Second hand tobacco smoke exposure: Yes Smoking end date: 09/21/16 Alcohol intake: never Substance use: never Substance use type: does not use Additional living arrangements comments: Sister Additional occupation/education comments: [employer] in [place] Gender identity (if verbalized by the patient): Male Spiritual care concerns: No Agree
--- NOTE | 2020-03-11 14:39 | PC.NURSE ---
Patient had multiple loose stools, daysi care provided and verbal order received for cdiff.
--- NOTE | 2020-03-11 14:41 | PC.NURSE ---
Pressure ulcer noted to sacrum at this time, mepilex removed r/t being soiled. Nafisa care provided and Dr. Coyle notified.
[2020-03-11 14:52] LABS: Basophils Percent Auto 0.4 % (0.2-1.2); Eosinophils Absolute Auto 0.2 K/mm3 (0-0.3); Eosinophils Percent Auto 2.9 % (0-4.4); Hematocrit 30.9 % (42.0-52.0); Hemoglobin 9.8 g/dL (14.0-18.0); Immature Granulocyte Absolute 0.04 K/mm3 (0.00-0.031); Immature Granulocyte Percent A 0.5 % (0-0.5); Lymphocytes Absolute Auto 1.07 K/mm3 (0.9-3.2); Lymphocytes Percent Auto 12.7 % (18.3-44.2); Mean Corpuscular HGB Conc 31.7 g/dl (32-36); Mean Corpuscular Hemoglobin 29.9 pg (26-34); Mean Corpuscular Volume 94.2 fl (80-100); Mean Platelet Volume 9.9 fl (7.4-10.4); Monocytes Absolute Auto 0.4 K/mm3 (0.1-0.6); Monocytes Percent Auto 4.6 % (2.6-8.5); Neutrophils Absolute Auto 6.6 K/mm3 (1.3-6.7); Neutrophils Percent Auto 78.9 % (45.5-73.1); Platelet Count Result 221 k/mm3 (150-375); Red Blood Count 3.28 M/mm3 (4.6-6.20); Red Cell Distribution Width 18.2 % (11.5-14.5); White Blood Count 8.4 K/mm3 (4.5-10.0)
[2020-03-11 15:02] LABS: Add Urine Microscopic? YES; Appearance Urine Cloudy (Clear); Bilirubin Urine Negative (Negative); Blood Urine Negative (Negative); Color Urine Yellow (Yellow); Glucose Urine UA Negative (Negative); Ketones Urine Negative (Negative); Leukocyte Esterase Ur 3+ LEU/UL (Negative); Mucus Urine Rare /lpf; Nitrate Urine Positive (Negative); Protein Urine 1+ mg/dL (Negative); Specific Grav Ur 1.016 (1.001-1.035); Squamous Epithelial Cell Urine Occasional /hpf (Few); WBC Urine >75 /hpf
[2020-03-11 15:03] LABS: Alanine Aminotransferase 8 U/L (4-50); Albumin Level 2.4 g/dL (3.5-5.1); Alkaline Phosphatase 64 U/L (38-126); Aspartate Amino Transferase 24 U/L (17-59); Bilirubin,Total 1.1 mg/dL (0.2-1.3); Blood Urea Nitrogen 17 mg/dL (9-20); Calcium 10.1 mg/dL (8.4-10.2); Carbon Dioxide 27 mmol/L (22-30); Chloride 110 mmol/L (98-107); Estimated CRCL calculation 55 ml/min; Estimated Glomerular Filt Rate > 60; Glucose 95 mg/dL (75-110); Sodium 140 mmol/L (137-145)
[2020-03-11 15:16] LABS: Troponin I 0.101 ng/mL (0.000-0.034)
[2020-03-11 16:32] LABS: NT Pro B Type Natriuretic Pept 25000 PG/ML (5-100)
[2020-03-11] MEDS: CIPROFLOXACIN 400 MG/D5W 200ML 200 ML 200 MG IVPB (17:44)
[2020-03-11 17:56] LABS: Troponin I 0.093 ng/mL (0.000-0.034)
--- NOTE | 2020-03-11 19:26 | ADMGEN ---
This patient, Art Sousa, was admitted to IMU Room 206-01 on 03/11/2020 at 1910. Patient/family oriented to hospital policies and general routines including ID bracelet, bed and alarms, visiting hours, pain management, procedures, bathroom and other care routines, personal items, smoking policy, room service/diet, and visiting hours. Valuables list has been completed. Information on how to activate the Rapid Response Team has been discussed. Patient/Family are encouraged to report perceived risks to care and to ask questions if they do not understand what they are told or what they should do.
[2020-03-11 21:30] LABS: Troponin I 0.095 ng/mL (0.000-0.034)
--- NOTE | 2020-03-11 22:31 | PM.IMHP ---
H&P: HPI History of Present Illness Chief complaint: ALTERED MENTAL STATUS Narrative: Art Sousa is a 79 year old male WHO COMES FROM [facility]. The patient came here with altered mental status. The patient stated that his neck hurts and he has been coughing for 2 weeks. The patient was just discharged from here on 02/23/2020 after he had been complaining of some chest pain. He does have a history of having coronary artery disease. The patient was evaluated by cutting machine tender helper and they started isosorbide on the patient and nitroglycerin p.r.n. patient had been discharged back to [facility]. Was found have a UTI today. Was started on Cipro. Patient has urinary frequency he has urgency as well. Patient's troponin was found to be 0.101 and then 0.093 and then 0.095. Which was improved from earlier this month. His BNP was noted to be [place] 25,000. I saw the patient approximately 1 month ago and the patient appears to have declined since then. The patient had suffered a myocardial infarction back on 02/11 patient has history of to having a TAVR. Patient had a cardiac catheterization here back in January of this year. Patient is not having any chest pain today but is having a coughing spell. Patient states that he hurts all over. Was read as bilateral airspace opacities representing small left and tiny right pleural effusions and scattered atelectasis and/or pneumonia. No acute intracranial process. Small old lacunar infarctions at the head of the left caudate nucleus. Age-related changes including mild diffuse volume loss and mild scattered white matter hypoattenuation consistent with chronic small vessel ischemic disease. Was the same read as earlier this month. Patient is being treated for the urinary tract infection. Date of service is 03/11/2020 Review of Systems Review of Systems: Narrative: The patient stated he does feel somewhat confused but he is able to answer some of the questions. All systems reviewed & are unremarkable except as noted in HPI and below Constitutional: Constitutional: Reports as per HPI and Reports no additional constitutional complaints Eyes: Eyes: Reports as per HPI and Reports no additional eye complaints ENT: Reports system reviewed and no additional complaints, except as documented and Reports Normal hearing present Cardiovascular: Cardiovascular: Reports no additional cardiovascular complaints Respiratory: Respiratory: Reports no additional respiratory complaints and Reports no additional respiratory complaints Gastrointestinal: Gastrointestinal: Reports as per HPI and Reports no additional gastrointestinal complaints Musculoskeletal: Musculoskeletal: Reports no additional musculoskeletal complaints Integumentary/Breasts: Skin/Breast: Reports system reviewed and no additional complaints, except as docu and Reports as per HPI Neurologic: Reports system reviewed and no additional complaints, except as documented, Reports as per HPI and Reports Normal hearing present Psychiatric: Psychiatric: Reports no additional psychiatric complaints and Reports as per HPI Endocrine: Endocrine: Reports no additional endocrine complaints Hematologic/Lymphatic: Hematologic/Lymphatic: Reports no additional hematologic/lymphatic complaints Allergic/Immunologic: Allergic/Immunologic: Reports no additional allergic/immunologic complaints [facility] Past Medical History Medical History (Updated 03/11/20 @ 22:44 by Ofelia Alvarenga NP) Angina at rest Arthritis CAD (coronary artery disease) of artery bypass graft Cataracts, bilateral CHF (congestive heart failure) Chronic renal failure, stage 4 (severe) GERD (gastroesophageal reflux disease) GI bleed Gout History of CVA (cerebrovascular accident) aS per CT today small old lacunar infarcts at the head of the left caudate nucleus. Hyperchloremia Hyperlipidemia Hypertension Hypothyroidism Kidney stone Normal colonoscopy Sinus trouble Skin cancer STEM
[2020-03-11] MEDS: ROSUVASTATIN 10 MG TABLET 20 MG PO (23:14)
[2020-03-11] MEDS: FENOFIBRATE,MICRONIZED 48 MG TABLET PO (23:14)
[2020-03-11] MEDS: GABAPENTIN 100 MG CAPSULE PO (23:14)
[2020-03-11] MEDS: METOPROLOL TARTRATE 25 MG TABLET PO (23:14)
[2020-03-11] MEDS: ACETAMINOPHEN 325 MG TABLET 650 MG PO (23:14)
[2020-03-12] VITALS (12 sets, daily range): BP systolic 120–178; BP diastolic 56–90; PULSE 65–93; RESP 14–18; TEMP 35.9–37; O2SAT 95–99
[2020-03-12 04:53] LABS: Basophils Absolute Auto 0.1 K/mm3 (0.0-0.1); Basophils Percent Auto 0.5 % (0.2-1.2); Eosinophils Absolute Auto 0.3 K/mm3 (0-0.3); Eosinophils Percent Auto 2.7 % (0-4.4); Hematocrit 31.3 % (42.0-52.0); Hemoglobin 9.8 g/dL (14.0-18.0); Immature Granulocyte Absolute 0.05 K/mm3 (0.00-0.031); Immature Granulocyte Percent A 0.5 % (0-0.5); Lymphocytes Absolute Auto 0.89 K/mm3 (0.9-3.2); Mean Corpuscular HGB Conc 31.3 g/dl (32-36); Mean Corpuscular Volume 95.7 fl (80-100); Mean Platelet Volume 10.1 fl (7.4-10.4); Monocytes Absolute Auto 0.4 K/mm3 (0.1-0.6); Monocytes Percent Auto 4.4 % (2.6-8.5); Neutrophils Absolute Auto 8.2 K/mm3 (1.3-6.7); Neutrophils Percent Auto 82.9 % (45.5-73.1); Platelet Count Result 233 k/mm3 (150-375); Red Blood Count 3.27 M/mm3 (4.6-6.20); Red Cell Distribution Width 18.5 % (11.5-14.5); White Blood Count 9.9 K/mm3 (4.5-10.0)
[2020-03-12 05:01] LABS: Lactic Acid 1.4 mmol/L (0.7-2.1)
[2020-03-12] MEDS: CIPROFLOXACIN 400 MG/D5W 200ML 200 ML 200 MG IVPB (05:20)
[2020-03-12 05:25] LABS: Alanine Aminotransferase 7 U/L (4-50); Albumin Level 2.4 g/dL (3.5-5.1); Alkaline Phosphatase 66 U/L (38-126); Aspartate Amino Transferase 20 U/L (17-59); Bilirubin,Total 0.8 mg/dL (0.2-1.3); Blood Urea Nitrogen 16 mg/dL (9-20); CRP 19.1 mg/dL (<1.0); Calcium 10.4 mg/dL (8.4-10.2); Carbon Dioxide 24 mmol/L (22-30); Chloride 109 mmol/L (98-107); Estimated CRCL calculation 55 ml/min; Estimated Glomerular Filt Rate > 60; Glucose 91 mg/dL (75-110); Magnesium 1.9 mg/dL (1.6-2.3); Potassium 3.6 mmol/L (3.4-5.0); Sodium 138 mmol/L (137-145)
--- NOTE | 2020-03-12 08:39 | PCOTNOTE ---
Hold OT evaluation per RN. Patient needing x-rays done. Will evaluate when medically appropriate.
--- NOTE | 2020-03-12 08:45 | PCPTNOTE ---
Hold PT evaluation per RN. Patient needing cervical x-rays done. Will evaluate when medically appropriate.
--- NOTE | 2020-03-12 09:26 | PM.IMPN ---
Progress Note: A&P Assessment and Plan (1) UTI (urinary tract infection): Qualifiers: Hematuria presence: without hematuria Urinary tract infection type: site unspecified Qualified Code(s): N39.0 - Urinary tract infection, site not specified Code(s): N39.0 - Urinary tract infection, site not specified Status: Acute Assessment and Plan: UA was highly suspicious for UTI. He was on empiric ciprofloxacin but I will switch to IV ceftriaxone noting QTc. Urine cultures and sensitivities are pending. (2) Altered mental status: Qualifiers: Altered mental status type: unspecified Qualified Code(s): R41.82 - Altered mental status, unspecified Code(s): R41.82 - Altered mental status, unspecified Status: Acute Assessment and Plan: The patient presented with altered mental status. He is alert and oriented x3. He does seem to be a poor historian and has a hx of CVA. He may have a component of vascular dementia. He also may have acute alteration due to his UTI. Continue to monitor. (3) History of fall: Code(s): Z91.81 - History of falling Status: Acute Assessment and Plan: The patient reports a hx of a fall 1-2 week ago with neck stiffness and pain since the fall. Plan to order a CT lumbar spine for further evaluation as he is concerned that he has a fracture. He reports no other complaints from that standpoint and reports no other pain. (4) CAD (coronary artery disease): Qualifiers: Associated angina: without angina Coronary Disease-Associated Artery/Lesion type: [place] artery [place] vs. transplanted heart: [place] heart Qualified Code(s): I25.10 - Atherosclerotic heart disease of [place] coronary artery without angina pectoris Code(s): I25.10 - Atherosclerotic heart disease of [place] coronary artery without angina pectoris Status: Chronic Assessment and Plan: Chronic. The patient has a hx of CAD with hx of multiple PCIs and CABG with a recent non STEMI 02/08/20. He underwent cardiac catheterization which revealed severe mutivessel CAD. PCI attempt to RCA was unsuccessful so medical management including DAPT was recommended. Troponin was elevated at admission with a flat trend and was lower than his prior baseline on review of previous labs. Plan to continue plavix, aspirin, metoprolol, nitroglycerin PRN, and rosuvastatin. He is not having any chest pain or dyspnea. Continue to monitor. (5) Elevated troponin: Code(s): R79.89 - Other specified abnormal findings of blood chemistry Status: Acute Assessment and Plan: Troponins were elevated with a flat trend and continue to improve following his recent NSTEMI. Continue management of his CAD as above. (6) Anemia: Qualifiers: Anemia type: unspecified type Qualified Code(s): D64.9 - Anemia, unspecified Code(s): D64.9 - Anemia, unspecified Status: Chronic Assessment and Plan: Chronic. Iron studies from 01/2020 are consistent with anemia of chronic disease. Vitamin B12 and folate were also sufficient at that time. Hb is improved from baseline at 9.8 and Hct 31.3. Continue to monitor. (7) Hypothyroidism: Qualifiers: Hypothyroidism type: unspecified Qualified Code(s): E03.9 - Hypothyroidism, unspecified Code(s): E03.9 - Hypothyroidism, unspecified Status: Chronic Assessment and Plan: Continue levothyroxine. Plan to check TSH tomorrow. (8) Hyperlipidemia: Qualifiers: Hyperlipidemia type: unspecified Qualified Code(s): E78.5 - Hyperlipidemia, unspecified Code(s): E78.5 - Hyperlipidemia, unspecified Status: Chronic Assessment and Plan: LFTs were reviewed and are normal. Continue rosuvastatin. (9) Generalized weakness: Code(s): R53.1 - Weakness Status: Acute Assessment and Plan: He reports progressive
[2020-03-12] MEDS: POLYMYXIN/TRIMETHOPRIM OPHTH 10 ML DROPS 1 DROP EACH EYE ×2 (10:57→20:22)
--- NOTE | 2020-03-12 14:35 | PCSTNOTE ---
Please refer to the Modified Barium Swallow Evaluation in the EMR.
[2020-03-12] MEDS: COLLAGENASE OINT 30 GM TUBE 1 APPLIC TOPICAL (15:43)
[2020-03-12] MEDS: GABAPENTIN 100 MG CAPSULE PO (17:14)
[2020-03-12] MEDS: FENOFIBRATE,MICRONIZED 48 MG TABLET PO (17:14)
--- NOTE | 2020-03-12 17:43 | PC.NURSE ---
This patient, Art Sousa, was transferred to [facility] on 03/12/20 at 1743. Personal belongings sent with patient. Report given to CECILIA Wilson. Appropriate documentation sent with patient.
--- NOTE | 2020-03-12 18:06 | PC.NURSE ---
This patient, Art Sousa, was received from IMU on 03/12/20 at 1745. Personal belongings list checked and signed. Patient/family oriented to unit policies and routines
[2020-03-12] MEDS: ACETAMINOPHEN 325 MG TABLET 650 MG PO (20:20)
[2020-03-12] MEDS: FLUDROCORTISONE ACETATE 0.1 MG TABLET PO (20:21)
[2020-03-12] MEDS: METOPROLOL TARTRATE 25 MG TABLET PO (20:21)
[2020-03-12] MEDS: ROSUVASTATIN 10 MG TABLET 20 MG PO (20:21)
[2020-03-13] VITALS (11 sets, daily range): BP systolic 126–137; BP diastolic 49–75; PULSE 67–79; RESP 16–20; TEMP 36.7–36.9; O2SAT 93–95; BMI 25.8
[2020-03-13] MEDS: LEVOTHYROXINE SODIUM 25 MCG TABLET PO (05:37)
[2020-03-13 06:32] LABS: Basophils Percent Auto 0.4 % (0.2-1.2); Eosinophils Absolute Auto 0.3 K/mm3 (0-0.3); Eosinophils Percent Auto 2.9 % (0-4.4); Hematocrit 29.8 % (42.0-52.0); Hemoglobin 9.3 g/dL (14.0-18.0); Immature Granulocyte Absolute 0.04 K/mm3 (0.00-0.031); Immature Granulocyte Percent A 0.4 % (0-0.5); Lymphocytes Absolute Auto 0.99 K/mm3 (0.9-3.2); Lymphocytes Percent Auto 10.8 % (18.3-44.2); Mean Corpuscular HGB Conc 31.2 g/dl (32-36); Mean Corpuscular Hemoglobin 29.8 pg (26-34); Mean Corpuscular Volume 95.5 fl (80-100); Mean Platelet Volume 9.7 fl (7.4-10.4); Monocytes Absolute Auto 0.4 K/mm3 (0.1-0.6); Monocytes Percent Auto 4.2 % (2.6-8.5); Neutrophils Absolute Auto 7.5 K/mm3 (1.3-6.7); Neutrophils Percent Auto 81.3 % (45.5-73.1); Platelet Count Result 228 k/mm3 (150-375); Red Blood Count 3.12 M/mm3 (4.6-6.20); Red Cell Distribution Width 18.5 % (11.5-14.5); White Blood Count 9.2 K/mm3 (4.5-10.0)
[2020-03-13 06:43] LABS: Blood Urea Nitrogen 17 mg/dL (9-20); Calcium 10.3 mg/dL (8.4-10.2); Carbon Dioxide 23 mmol/L (22-30); Chloride 110 mmol/L (98-107); Estimated CRCL calculation 55 ml/min; Estimated Glomerular Filt Rate > 60; Glucose 91 mg/dL (75-110); Magnesium 1.9 mg/dL (1.6-2.3); Potassium 3.3 mmol/L (3.4-5.0); Sodium 138 mmol/L (137-145)
[2020-03-13] MEDS: METOPROLOL TARTRATE 25 MG TABLET PO ×2 (08:51→21:47)
[2020-03-13] MEDS: FLUDROCORTISONE ACETATE 0.1 MG TABLET PO ×2 (08:51→21:46)
[2020-03-13] MEDS: GABAPENTIN 100 MG CAPSULE PO ×3 (08:51→18:09)
[2020-03-13] MEDS: FOLIC ACID 1 MG TABLET PO (08:51)
[2020-03-13] MEDS: ACETAMINOPHEN 325 MG TABLET 650 MG PO ×2 (08:52→21:46)
[2020-03-13] MEDS: POTASSIUM CHLORIDE 20 MEQ TABLET.ER 40 MEQ PO (08:52)
[2020-03-13] MEDS: ASPIRIN 81 MG CHEWABLE TABLET PO (08:53)
[2020-03-13] MEDS: POLYMYXIN/TRIMETHOPRIM OPHTH 10 ML DROPS 1 DROP EACH EYE ×2 (08:53→21:47)
[2020-03-13] MEDS: CLOPIDOGREL BISULFATE 75 MG TABLET PO (08:53)
[2020-03-13] MEDS: allopurinoL 100 MG TABLET PO (08:53)
[2020-03-13] MEDS: MEGESTROL ACETATE (*CHEMO) 20 MG TABLET PO (08:53)
[2020-03-13] MEDS: LOSARTAN POTASSIUM 25 MG TABLET PO (08:53)
--- NOTE | 2020-03-13 12:55 | PM.IMPN ---
Progress Note: A&P Assessment and Plan (1) UTI (urinary tract infection): Qualifiers: Hematuria presence: without hematuria Urinary tract infection type: site unspecified Qualified Code(s): N39.0 - Urinary tract infection, site not specified Code(s): N39.0 - Urinary tract infection, site not specified Status: Acute Assessment and Plan: UA is highly suspicious for UTI. He denies urinary symptoms. He is afebrile and without leukocytosis. Urine culture reveals >100,000 CFU coagulase-negative Staphylococcus with susceptibility report pending. Continue IV ceftriaxone. Initiate IV vancomycin while awaiting susceptibility report. Ciprofloxacin was DC on 03/12 given QTC. Await results of final urine culture. Continue to monitor closely. (2) Altered mental status: Qualifiers: Altered mental status type: unspecified Qualified Code(s): R41.82 - Altered mental status, unspecified Code(s): R41.82 - Altered mental status, unspecified Status: Acute Assessment and Plan: The patient presented with altered mental status. He is alert and oriented x4. He does seem to be a poor historian and has a hx of CVA. He may have a component of vascular dementia. He also may have acute alteration due to his UTI. Continue to monitor mental status. (3) History of fall: Code(s): Z91.81 - History of falling Status: Acute Assessment and Plan: The patient reports a hx of a fall 1-2 week ago with neck stiffness and pain since the fall. CT of cervical spine does not demonstrate any acute fracture, but does demonstrate mild to moderate cervical spondylosis. He denies any musculoskeletal pain today. Continue to monitor PT and OT have been ordered and their recommendations are appreciated. (4) CAD (coronary artery disease): Qualifiers: Associated angina: without angina Coronary Disease-Associated Artery/Lesion type: [place] artery [place] vs. transplanted heart: [place] heart Qualified Code(s): I25.10 - Atherosclerotic heart disease of [place] coronary artery without angina pectoris Code(s): I25.10 - Atherosclerotic heart disease of [place] coronary artery without angina pectoris Status: Chronic Assessment and Plan: Chronic. The patient has a hx of CAD with hx of multiple PCIs and CABG with a recent non STEMI 02/08/20. He underwent cardiac catheterization which revealed severe mutivessel CAD. PCI attempt to RCA was unsuccessful so medical management including DAPT was recommended. Troponin was elevated at admission with a flat trend and was lower than his prior baseline on review of previous labs. He denies chest pain at this time. Continue plavix, aspirin, metoprolol, nitroglycerin PRN, and rosuvastatin. Continue to monitor closely for symptoms. (5) Elevated troponin: Code(s): R79.89 - Other specified abnormal findings of blood chemistry Status: Acute Assessment and Plan: Troponins were elevated with a flat trend and continue to improve following his recent NSTEMI. Continue management of his CAD as above. (6) Anemia: Qualifiers: Anemia type: unspecified type Qualified Code(s): D64.9 - Anemia, unspecified Code(s): D64.9 - Anemia, unspecified Status: Chronic Assessment and Plan: Chronic. Iron studies from 01/2020 are consistent with anemia of chronic disease. Vitamin B12 and folate were also sufficient at that time. Hb is improved from baseline at 9.3 and Hct 29.8. Continue to monitor H&H. Transfuse as needed hemoglobin threshold <7.0 (7) Hypothyroidism: Qualifiers: Hypothyroidism type: unspecified Qualified Code(s): E03.9 - Hypothyroidism, unspecified Code(s): E03.9 - Hypothyroidism, unspecified Status: Chronic Assessment and Plan: TSH is 3.350 Continue levothyroxine (8) Hyperlipidemia: Qualifiers: [place]
[2020-03-13] MEDS: FENOFIBRATE,MICRONIZED 48 MG TABLET PO (18:10)
[2020-03-13] MEDS: COLLAGENASE OINT 30 GM TUBE 1 APPLIC TOPICAL (18:13)
[2020-03-13] MEDS: ROSUVASTATIN 10 MG TABLET 20 MG PO (21:46)
[2020-03-13] MEDS: VANCOMYCIN ORAL 500 MG/10 ML SYRUP PO (23:59)
[2020-03-14] VITALS (11 sets, daily range): BP systolic 112–136; BP diastolic 53–63; PULSE 66–112; RESP 16–42; TEMP 36.1–36.7; O2SAT 84–97
[2020-03-14] MEDS: VANCOMYCIN ORAL 500 MG/10 ML SYRUP PO ×2 (05:44→12:44)
[2020-03-14] MEDS: LEVOTHYROXINE SODIUM 25 MCG TABLET PO (05:44)
[2020-03-14 06:33] LABS: Basophils Percent Auto 0.2 % (0.2-1.2); Eosinophils Absolute Auto 0.4 K/mm3 (0-0.3); Eosinophils Percent Auto 3.9 % (0-4.4); Hematocrit 29.2 % (42.0-52.0); Hemoglobin 9.3 g/dL (14.0-18.0); Immature Granulocyte Absolute 0.05 K/mm3 (0.00-0.031); Immature Granulocyte Percent A 0.6 % (0-0.5); Lymphocytes Absolute Auto 0.92 K/mm3 (0.9-3.2); Lymphocytes Percent Auto 10.4 % (18.3-44.2); Mean Corpuscular HGB Conc 31.8 g/dl (32-36); Mean Corpuscular Hemoglobin 30.4 pg (26-34); Mean Corpuscular Volume 95.4 fl (80-100); Mean Platelet Volume 9.7 fl (7.4-10.4); Monocytes Absolute Auto 0.3 K/mm3 (0.1-0.6); Monocytes Percent Auto 3.7 % (2.6-8.5); Neutrophils Absolute Auto 7.2 K/mm3 (1.3-6.7); Neutrophils Percent Auto 81.2 % (45.5-73.1); Platelet Count Result 205 k/mm3 (150-375); Red Blood Count 3.06 M/mm3 (4.6-6.20); Red Cell Distribution Width 18.8 % (11.5-14.5); White Blood Count 8.9 K/mm3 (4.5-10.0)
[2020-03-14 06:51] LABS: Alanine Aminotransferase 7 U/L (4-50); Albumin Level 2.4 g/dL (3.5-5.1); Alkaline Phosphatase 61 U/L (38-126); Aspartate Amino Transferase 19 U/L (17-59); Bilirubin,Total 0.4 mg/dL (0.2-1.3); Blood Urea Nitrogen 17 mg/dL (9-20); Calcium 10.7 mg/dL (8.4-10.2); Carbon Dioxide 25 mmol/L (22-30); Chloride 111 mmol/L (98-107); Estimated CRCL calculation 55 ml/min; Estimated Glomerular Filt Rate > 60; Glucose 101 mg/dL (75-110); Potassium 3.2 mmol/L (3.4-5.0); Sodium 140 mmol/L (137-145)
[2020-03-14] MEDS: METOPROLOL TARTRATE 25 MG TABLET PO ×2 (08:11→22:00)
[2020-03-14] MEDS: ASPIRIN 81 MG CHEWABLE TABLET PO (08:11)
[2020-03-14] MEDS: GABAPENTIN 100 MG CAPSULE PO ×3 (08:11→17:37)
[2020-03-14] MEDS: MEGESTROL ACETATE (*CHEMO) 20 MG TABLET PO (08:11)
[2020-03-14] MEDS: POLYMYXIN/TRIMETHOPRIM OPHTH 10 ML DROPS 1 DROP EACH EYE (08:11)
[2020-03-14] MEDS: FLUDROCORTISONE ACETATE 0.1 MG TABLET PO ×2 (08:12→22:00)
[2020-03-14] MEDS: CLOPIDOGREL BISULFATE 75 MG TABLET PO (08:12)
[2020-03-14] MEDS: FOLIC ACID 1 MG TABLET PO (08:12)
[2020-03-14] MEDS: LOSARTAN POTASSIUM 25 MG TABLET PO (08:12)
[2020-03-14] MEDS: allopurinoL 100 MG TABLET PO (08:13)
[2020-03-14] MEDS: COLLAGENASE OINT 30 GM TUBE 1 APPLIC TOPICAL (08:13)
[2020-03-14] MEDS: POTASSIUM CHLORIDE 20 MEQ TABLET.ER 40 MEQ PO (08:14)
[2020-03-14] MEDS: ACETAMINOPHEN 325 MG TABLET 650 MG PO (08:26)
--- NOTE | 2020-03-14 13:49 | PM.IMPN ---
Progress Note: A&P Assessment and Plan (1) UTI (urinary tract infection): Qualifiers: Hematuria presence: without hematuria Urinary tract infection type: site unspecified Qualified Code(s): N39.0 - Urinary tract infection, site not specified Code(s): N39.0 - Urinary tract infection, site not specified Status: Acute Assessment and Plan: UA is highly suspicious for UTI. He denies urinary symptoms. He is afebrile and without leukocytosis. Urine culture reveals >100,000 CFU coagulase-negative Staphylococcus with resistance to multiple antibiotics. Continue IV vancomycin. Will plan to transition to oral Macrobid at discharge. IV ceftriaxone discontinued today. Cipro was discontinued on 03/12 given QTc. Continue to monitor closely. (2) Altered mental status: Qualifiers: Altered mental status type: unspecified Qualified Code(s): R41.82 - Altered mental status, unspecified Code(s): R41.82 - Altered mental status, unspecified Status: Acute Assessment and Plan: The patient presented with altered mental status. He is alert and oriented x 2 today. He can tell me his name, date of , where he is, and the president. He may have a component of vascular dementia. He also may have acute alteration due to his UTI, but he appears to be close to his baseline. Continue to monitor mental status. (3) History of fall: Code(s): Z91.81 - History of falling Status: Acute Assessment and Plan: The patient reports a hx of a fall 1-2 week ago with neck stiffness and pain since the fall. CT of cervical spine does not demonstrate any acute fracture, but does demonstrate mild to moderate cervical spondylosis. He complains of mild discomfort of his neck today. Continue to monitor PT and OT have been ordered and their recommendations are appreciated. (4) CAD (coronary artery disease): Qualifiers: Associated angina: without angina Coronary Disease-Associated Artery/Lesion type: [place] artery [place] vs. transplanted heart: [place] heart Qualified Code(s): I25.10 - Atherosclerotic heart disease of [place] coronary artery without angina pectoris Code(s): I25.10 - Atherosclerotic heart disease of [place] coronary artery without angina pectoris Status: Chronic Assessment and Plan: Chronic. The patient has a hx of CAD with hx of multiple PCIs and CABG with a recent non STEMI 02/08/20. He underwent cardiac catheterization which revealed severe mutivessel CAD. PCI attempt to RCA was unsuccessful so medical management including DAPT was recommended. Troponin was elevated at admission with a flat trend and was lower than his prior baseline on review of previous labs. He denies chest pain at this time. Continue plavix, aspirin, metoprolol, nitroglycerin PRN, and rosuvastatin. Continue to monitor closely for symptoms. (5) Anemia: Qualifiers: Anemia type: unspecified type Qualified Code(s): D64.9 - Anemia, unspecified Code(s): D64.9 - Anemia, unspecified Status: Chronic Assessment and Plan: Chronic. Iron studies from 01/2020 are consistent with anemia of chronic disease. Vitamin B12 and folate were also sufficient at that time. Hb is improved from baseline at 9.3 and Hct 29.2. Continue to monitor H&H. Transfuse as needed hemoglobin threshold <7.0 (6) Hypothyroidism: Qualifiers: Hypothyroidism type: unspecified Qualified Code(s): E03.9 - Hypothyroidism, unspecified Code(s): E03.9 - Hypothyroidism, unspecified Status: Chronic Assessment and Plan: TSH is 3.350 Continue levothyroxine (7) Hyperlipidemia: Qualifiers: Hyperlipidemia type: unspecified Qualified Code(s): E78.5 - Hyperlipidemia, unspecified Code(s): E78.5 - Hyperlipidemia, unspecified Status: Chronic Assessment and Plan: LFTs were reviewed and are normal.
[2020-03-14] MEDS: POTASSIUM CHLORIDE 20 MEQ TABLET 40 MEQ PO (17:37)
[2020-03-14] MEDS: FENOFIBRATE,MICRONIZED 48 MG TABLET PO (17:38)
[2020-03-14 20:11] LABS: Alveolar/Arterial O2 Gradient 507.4 mmHg; Carboxyhemoglobin 0.3 % THb (0-2.0); Fractional Inspired Oxygen 90 %; HCO3 ABG 21.1 mEq/l (22.0-26.0); Methemoglobin ABG 0.3 %THb (0-1.5); Oxygen Content ABG 13.6 %vol (16.0-22.0); Oxygen Saturation ABG 89.1 % (95.0-100.0); Oxyhemoglobin 85.7 % THb (90.0-100.0); PO2 ABG 71.4 mmHg (80.0-100.0); PO2 FiO2 Ratio Arterial Blood 0.79 %; Reduced Hemoglobin 13.7 %THb (0-5.0); Total Hemoglobin 11.2 g/dL (12.0-18.0)
[2020-03-14 20:14] LABS: Device NON-REBREATHER MASK; Modified Allen's Test Pass; PCO2 ABG 61.4 mmHg (35.0-45.0); Site Drawn LEFT RADIAL; pH ABG 7.154 (7.350-7.450)
[2020-03-14 20:35] LABS: Hematocrit 32.3 % (42.0-52.0); Hemoglobin 9.8 g/dL (14.0-18.0); Mean Corpuscular HGB Conc 30.3 g/dl (32-36); Mean Corpuscular Hemoglobin 30.2 pg (26-34); Mean Corpuscular Volume 99.7 fl (80-100); Platelet Count Result 308 k/mm3 (150-375); Red Blood Count 3.24 M/mm3 (4.6-6.20); Red Cell Distribution Width 18.7 % (11.5-14.5); White Blood Count 20.4 K/mm3 (4.5-10.0)
--- NOTE | 2020-03-14 20:38 | ECG_ITS ---
Measurements Intervals [place] Rate: 106 P: 39 VT: 129 QRS: 146 QRSD: 165 T: 21 QT: 365 QTc: 485 Interpretive Statements SINUS TACHYCARDIA VENTRICULAR PREMATURE COMPLEX INTRAVENTRICULAR CONDUCTION DELAY LEFT POSTERIOR FASCICULAR BLOCK ST-T WAVE ABNORMALITY IN ANTEROLAT/INF LEADS- CONSIDER ISCHEMIA BASELINE WANDER- V4-V6 ABNORMAL ECG Electronically Signed On 03-15-2020 7:14:54 CDT by Devin Hudson D.O.
--- NOTE | 2020-03-14 20:48 | ECG_ITS ---
Measurements Intervals [place] Rate: 107 P: 4 ID: [id number] QRS: -83 QRSD: 154 T: 37 QT: 374 QTc: 501 Interpretive Statements SINUS OR ECTOPIC ATRIAL TACHYCARDIA WITH SHORT ID INTERVAL RIGHT BUNDLE BRANCH BLOCK LEFT ANTERIOR FASCICULAR BLOCK ST DEPRESSION IN ANTEROSEPTAL LEADS- CONSIDER ACUTE POSTERIOR INFARCT ABNORMAL ECG Electronically Signed On 03-15-2020 7:17:42 CDT by Devin Hudson D.O.
[2020-03-14 20:49] LABS: Alanine Aminotransferase 10 U/L (4-50); Albumin Level 2.5 g/dL (3.5-5.1); Alkaline Phosphatase 69 U/L (38-126); Aspartate Amino Transferase 24 U/L (17-59); Bilirubin,Total 0.4 mg/dL (0.2-1.3); Blood Urea Nitrogen 19 mg/dL (9-20); Carbon Dioxide 24 mmol/L (22-30); Chloride 111 mmol/L (98-107); Estimated CRCL calculation 50 ml/min; Estimated Glomerular Filt Rate 59; Glucose 169 mg/dL (75-110); Potassium 3.7 mmol/L (3.4-5.0); Sodium 142 mmol/L (137-145)
--- NOTE | 2020-03-14 21:00 | P.PNCROSS_ITS ---
Event Note Event Note Event Note: RAPID RESPONSE NOTE Called to assess this patient via Rapid Response and on arrival this 79 year old male who is being treated for an acute UTI was found to have labored breathing and amber respiratory distress. The patient was gurgling and clutching his chest. He was placed on a nonrebreather as he could not maintain his saturations. On exam the patient has diffuse lung crackles. EKG was obtained which demonstrated significant ST segment depression in the precordial leads and ST depression in the lateral leads which is new when compared to previous EKG of 2 days ago. The patient was given a small 250 cc fluid bolus as he was hypotensive with a blood pressure of 88/50 mm Hg. ABG was obtained which demonstarted hypercapnic respiratory failure. The patient was initiated on Bipap. I have consulted our [employer], Dr. Carvajal and discussed the case at length which him and he has reviewed the patient's EKG findings and has decided the patient should go to the labor utilization superintendent tonight for an urgent cardiac catheterization. The patient is a DNI code status although his sister who is his DPOA has decided that she would want him intubated for the cardiac cath. CBC, CMP, Mg, Troponin, Lactic acid obtained. The patient's mental status has improved significantly since he has been on Bipap and also agrees that he wants to be intubated for the cardiac procedure. I have consulted our Sr Community Manager, Dr. Maharaj who has agreed with us transferring the patient to the ICU. A/P Acute Respiratory Failure Acute NSTEMI - The patient will be transferred to the ICU, intubated, and placed on mechanical ventilation in preparation for the labor utilization superintendent. Total Critical Care time spent exceeded 40 minutes.
[2020-03-14 21:03] LABS: Troponin I 0.173 ng/mL (0.000-0.034)
--- NOTE | 2020-03-14 21:10 | PC.NURSE ---
This patient, Art Sousa, was transferred to [ICU 5] on 03/14/20 at 2110. Personal belongings sent with patient. Belongings list checked and signed with receiving [RN ]. Report given to [ CECILIA Cid]. Appropriate documentation sent with patient.
--- NOTE | 2020-03-14 21:36 | WPDPROCEDUR ---
Procedures Intubation Intubation Date: 03/14/20 Intubation Time: 21:36 Consent: Verbal consent from the patient himself. He desired to be intubated to go to the [facility] lab[facility]. A pre-procedural Time-Out was completed immediately before starting the procedure and confirmed: Patient Identification, Site, Procedure, Patient Position and the Availability of Requisite Equipment: Yes Sedative: etomidate Mg given: 10 Paralytic: succinylcholine Mg given: 100 Laryngoscope: fiber optic video scope ET tube size: cuffed Tube secured depth (cm): 26 Tube secured location: lips Tube placement confirmation: visualized tube passing through cords, equal breath sounds bilaterally, no breath sounds over epigastrium and confirmation by capnometry Patient tolerated procedure: well Intubation complications: none Additional comments: Date of service was 03/14/2020 at 21:30 hrs.
--- NOTE | 2020-03-14 21:42 | PM.CNCAR ---
Assessment and Plan Assessment and plan (1) NSTEMI (non-ST elevated myocardial infarction): Code(s): I21.4 - Non-ST elevation (NSTEMI) myocardial infarction Status: Acute Assessment and Plan: EKG shows severe ST depression V1 to V3 concerning. patient was having chest pain and severe shortness of breath that seems to be flash pulmonary edema. patient was DNI however after discussing with the patient he wanted to be intubated to undergo the cardiac catheterization. There was a delay to take patient to laborer tin can to get the patient intubated. will proceed for cardiac catheterization urgently (2) CAD (coronary artery disease): Qualifiers: Associated angina: without angina Coronary Disease-Associated Artery/Lesion type: [place] artery [place] vs. transplanted heart: [place] heart Qualified Code(s): I25.10 - Atherosclerotic heart disease of [place] coronary artery without angina pectoris Code(s): I25.10 - Atherosclerotic heart disease of [place] coronary artery without angina pectoris Status: Chronic History of Present Illness History of Present Illness Consult date/time: date of service 03/14/20 21:42 reason for consultation chest pain and shortness of breath this is a 79-year-old patient with past medical history of TAVR, hypertension,CABG in 1999 with subsequent stents placement. Last catheterization February 08, [address] Keys and at that time the RAHMAN to LAD was patent. Total occlusion of RCA. The graft to the RCA was totally occluded with inability to open the graft. graft to left circumflex artery is occluded as well. patient does have a left main stent that was patent and mid left circumflex artery that stent. patient was admitted to the hospital with altered mental status that is thought to be related to UTI. also was found to have positive C diff. However today he started to have severe chest pain with shortness of breath and. was having crackles. was placed on BiPAP. his EKG shows sinus tachycardia, right bundle branch block and severe ST depression leads V1 through V3. patient's code status was DNI however Dr. lanier in discussed that the patient himself and he agreed to be intubated for the procedure because patient cannot lay flat on the bed. his last echocardiogram January 2020 shows ejection fraction 45-50%, moderate mitral regurgitation Requesting physician: Omar Mares MD Reason For Visit: ALTERED MENTAL STATUS Review of Systems Review of Systems: ROS unobtainable: Yes unobtainable due to endotracheal tube PMFSH Past Medical History Medical History Angina at rest Arthritis CAD (coronary artery disease) of artery bypass graft Cataracts, bilateral CHF (congestive heart failure) Chronic renal failure, stage 4 (severe) GERD (gastroesophageal reflux disease) GI bleed Gout History of CVA (cerebrovascular accident) aS per CT today small old lacunar infarcts at the head of the left caudate nucleus. Hyperchloremia Hyperlipidemia Hypertension Hypothyroidism Kidney stone Normal colonoscopy Sinus trouble Skin cancer STEMI (ST elevation myocardial infarction) Surgical History Surgical History H/O bilateral cataract extraction H/O endarterectomy Bilateral History of cardiac cath Multiple stents in the past History of removal of pigmented skin lesion History of total replacement of both hip joints Hx of CABG 3 vessel S/P aortic valve replacement TAVR Stented coronary artery Multiple stents Family History Family History Father Cerebrovascular accident Patient's father is Acute myocardial infarction Mother Family history of malignant neoplasm of ovary Patient's mother is Sibling Patient's brother is Acute myocardial infarc
--- NOTE | 2020-03-14 22:13 | WPDCARDPROC ---
Cardiac Cath Procedure Note Date of procedure:: 03/15/20 Performing physician:: Arpita Lancaster MD date of service : 03/14/2020 Indication:: chest pain, flash pulmonary edema, EKG changes Brief clinical history:: this is a 79-year-old patient with past medical history of TAVR, hypertension,CABG in 1999 with subsequent stents placement. Last catheterization February 08, [address] Keys and at that time the RAHMAN to LAD was patent. Total occlusion of RCA. The graft to the RCA was totally occluded with inability to open the graft. graft to left circumflex artery is occluded as well. patient does have a left main stent that was patent and mid left circumflex artery that stent. patient was admitted to the hospital with altered mental status that is thought to be related to UTI. also was found to have positive C diff. However today he started to have severe chest pain with shortness of breath and. was having crackles. was placed on BiPAP. his EKG shows sinus tachycardia, right bundle branch block and severe ST depression leads V1 through V3. patient's code status was DNI however Dr. lanier in discussed that the patient himself and he agreed to be intubated for the procedure because patient cannot lay flat on the bed. his last echocardiogram January 2020 shows ejection fraction 45-50%, moderate mitral regurgitation Procedure Procedure performed:: 1-Moderate sedation that started at 1020pm and ended at 0109 am using 4mg of Versed and 100 mg fentanyl. The registered nurse was martha pelletier. 2-Selective left coronary angiogram. 3-Left heart catheterization with measurement of LVEDP and measurement of gradient across aortic valve. 4-LV angiogram. 5- insertion of left ventricular assist device Impella.CPT code 37132 6- critical care monitoring for the 1st 60 minutes. 7- intravascular ultrasound of the left main into the left circumflex artery. 8- Insertion of drug-eluting stent 4 x 18 covering proximal left main and covering the old stent in the distal left main coronary artery into the left circumflex artery stent. Deployment done under nominal pressure for 20 seconds. Post dilatation was done using a 5 by 15 noncompliant balloon with maximum inflation done under 20 atmospheres for 25 seconds. 9- balloon angioplasty of ostial left anterior descending artery using 3 x 12 noncompliant balloon. 10- left common femoral arterial angiogram. 11-Right common femoral arterial angiogram. 12- Insertion of 4 [place] right femoral venous central line. Sedation/Medication given:: Moderate sedation. Access site:: Right common femoral artery. Estimated blood loss:: 10cc Procedure note:: After informed consent patient was brought in to laborer operator with the was draped and prepped in usual manner. Moderate sedation was given and the right groin was infiltrated using 1% lidocaine. Five [place] sheath was obtained using micropuncture needle and the modified Seldinger technique. Selective left coronary angiogram was done using JL4 catheter with the tip of the catheter placed in the left main coronary artery.After that 5 [place] pigtail catheter was advanced across the aortic valve into the left ventricle with measurement of LVEDP and measurement of gradient across aortic valve. LV angiogram was done as well. Right common femoral arterial angiogram was done. left common femoral artery angiogram was done. Insertion of 4 [place] right femoral vein central line. Findings:: 1- left coronary artery is a large artery that divides into large LAD, large circumflex artery. There is a stent covering the distal portion of left main coronary artery into the left circumflex artery. There is 70% stenosis proximal to the stent and there is haziness inside the stent consistent with a thrombus. [place] flow 3. 2- left anterior descending artery is a large artery. has ostial 90% stenosis and totally occluded in the mid segment. Before the occlusion it gives rise to a large septal branch that supplies co
[2020-03-15] VITALS (39 sets, daily range): BP systolic 70–147; BP diastolic 42–69; PULSE 90–123; RESP 14–33; TEMP 36.4–38.4; O2SAT 92–100; BMI 25.7
[2020-03-15] MEDS: EPTIFIBATIDE 0.75 MG/ML 75 MG/100 ML VIAL 13.8 MG IV CONT ×2 (01:45→06:40)
[2020-03-15 03:00] LABS: Hematocrit 28.5 % (42.0-52.0); Hemoglobin 8.9 g/dL (14.0-18.0); Mean Corpuscular HGB Conc 31.2 g/dl (32-36); Mean Corpuscular Hemoglobin 31.1 pg (26-34); Mean Corpuscular Volume 99.7 fl (80-100); Mean Platelet Volume 10.2 fl (7.4-10.4); Platelet Count Result 173 k/mm3 (150-375); Red Blood Count 2.86 M/mm3 (4.6-6.20); Red Cell Distribution Width 18.6 % (11.5-14.5); White Blood Count 9.6 K/mm3 (4.5-10.0)
[2020-03-15 04:11] LABS: Alveolar/Arterial O2 Gradient 315.1 mmHg; Arterial Blood Gas Vent Mode CMV; Arterial Blood Gas Ventilator rate 18 /MIN; Base Excess ABG -3.2 mEq/l (+/-2.0); Carboxyhemoglobin 0.5 % THb (0-2.0); Device VENTILATOR; Fractional Inspired Oxygen 60 %; HCO3 ABG 19.7 mEq/l (22.0-26.0); Methemoglobin ABG 0.3 %THb (0-1.5); Modified Allen's Test Pass; Oxygen Saturation ABG 96.3 % (95.0-100.0); Oxyhemoglobin 94.5 % THb (90.0-100.0); PCO2 ABG 29.8 mmHg (35.0-45.0); PO2 ABG 79.9 mmHg (80.0-100.0); PO2 FiO2 Ratio Arterial Blood 1.33 %; Reduced Hemoglobin 4.7 %THb (0-5.0); Site Drawn RIGHT RADIAL; Total Hemoglobin 13.5 g/dL (12.0-18.0); pH ABG 7.439 (7.350-7.450)
[2020-03-15 04:12] LABS: Arterial Blood Gas PEEP 5 cmH2O; Arterial Blood Gas Tidal Volume 450 ml
[2020-03-15 04:40] LABS: Basophils Percent Auto 0.2 % (0.2-1.2); Eosinophils Absolute Auto 0.1 K/mm3 (0-0.3); Hematocrit 29.3 % (42.0-52.0); Immature Granulocyte Absolute 0.02 K/mm3 (0.00-0.031); Immature Granulocyte Percent A 0.2 % (0-0.5); Lymphocytes Absolute Auto 0.69 K/mm3 (0.9-3.2); Lymphocytes Percent Auto 6.7 % (18.3-44.2); Mean Corpuscular HGB Conc 30.7 g/dl (32-36); Mean Corpuscular Hemoglobin 30.4 pg (26-34); Mean Platelet Volume 10.1 fl (7.4-10.4); Monocytes Absolute Auto 0.3 K/mm3 (0.1-0.6); Neutrophils Absolute Auto 9.2 K/mm3 (1.3-6.7); Neutrophils Percent Auto 88.9 % (45.5-73.1); Platelet Count Result 173 k/mm3 (150-375); Red Blood Count 2.96 M/mm3 (4.6-6.20); Red Cell Distribution Width 18.6 % (11.5-14.5); White Blood Count 10.4 K/mm3 (4.5-10.0)
[2020-03-15 04:51] LABS: Partial Thromboplastin Time 91.4 SECONDS (22.3-36.8)
[2020-03-15 04:58] LABS: Alanine Aminotransferase 10 U/L (4-50); Albumin Level 2.3 g/dL (3.5-5.1); Alkaline Phosphatase 41 U/L (38-126); Aspartate Amino Transferase 55 U/L (17-59); Bilirubin,Total 1.3 mg/dL (0.2-1.3); Blood Urea Nitrogen 20 mg/dL (9-20); Calcium 10.8 mg/dL (8.4-10.2); Carbon Dioxide 24 mmol/L (22-30); Chloride 113 mmol/L (98-107); Estimated CRCL calculation 55 ml/min; Estimated Glomerular Filt Rate > 60; Glucose 83 mg/dL (75-110); Potassium 3.9 mmol/L (3.4-5.0); Sodium 140 mmol/L (137-145)
[2020-03-15 05:25] LABS: Glucose Point of Care 166 (65-105)
--- NOTE | 2020-03-15 05:33 | WPDPROCEDUR ---
Procedures Central Line Placement Right IJ: Central Line Date: 03/15/20 Central Line Time: 05:34 The patient/family/POA understand(s) and acknowledge(s) the need to proceed with central venous catheter insertion as an important element of the patient's clinical management.: Yes Time Out Performed: Yes Patient Position: supine Patient placed on monitor/pulse ox: Yes Provider Prep: mask, sterile gown, sterile gloves and Max. sterile barrier precautions Central line prep: Povidone-Iodine 1%, Chlorhexidine scrub and sterile full body sheet applied Local anesthesia used: other anesthetic Sterile Ultrasound Technique used for placement: Yes Central line lumen inserted: triple Bulgarian: 7 Length (cm): 20 Depth of Insertion (cm): 16 Post procedure: sutured in place, good blood return, all ports aspirated, flushed, capped, tegaderm, hemostatic disc and antimicrobial disc Post procedure x-ray: tip of catheter in good position and no pneumothorax seen Patient tolerated procedure: well Complications: none Additional comments: Date of service of procedure was 03/15/2020 at 05:00 hrs.
[2020-03-15] MEDS: LEVOTHYROXINE SODIUM 25 MCG TABLET PO (05:45)
[2020-03-15] MEDS: NOREPINEPHRINE 8 MG/D5W 250 ML 8 MG/250 ML BAG 9.4 MG IV CONT (06:15)
--- NOTE | 2020-03-15 06:20 | PC.NURSE ---
PATIENT SBP DROPPED TO 50-60S. RAUL BROOKS (CHRISTIAN) NOTIFIED AND SUGGESTED TURNING P5 TO P8. IF THIS DOES NOT HELP, CALL MD FOR ORDER OF LEVOPHED. DR. BANUELOS CALLED AND UPDATED WITH CURRENT VITAL SIGNS. ORDERED LEVOPHED DRIP FOR BP SUPPORT. WILL CONTINUE TO MONITOR PATIENT FOR CHANGES IN STATUS AND WILL FOLLOW CURRENT PLAN OF CARE.
--- NOTE | 2020-03-15 09:48 | WPDCNINT ---
Assessment and Plan Assessment and plan (1) Acute respiratory failure: Code(s): J96.00 - Acute respiratory failure, unspecified whether with hypoxia or hypercapnia Status: Acute Assessment and Plan: Acute Respiratory failure secondary to Cardiogenic shock, pulmonary edema, question of a pneumonia Continue full mechanical ventilation support to prevent hypoxemia/hypercarbia and end organ damage. ABG and PCXR reviewed and will repeat in am. Low tidal volume ventilation strategy to prevent volutrauma Not ready for weaning at this point Bronchodilators (2) Fever: Code(s): R50.9 - Fever, unspecified Status: Acute Assessment and Plan: Patient was being treated for UTI Urine culture growing coag-negative staph which was sensitive to vancomycin Continue vancomycin Will check blood culture Will add aztreonam for gram-negative coverage P.r.n. Tylenol (3) Shock: Code(s): R57.9 - Shock, unspecified Status: Acute Assessment and Plan: Most likely cardiogenic Impella in place Levophed titration to continue Patient was given IV fluids during cardiac catheterization At will add 25% albumin Cautious IV fluids due to overall hypovolemia and volume overload although may be intravascularly depleted (4) NSTEMI (non-ST elevated myocardial infarction): Code(s): I21.4 - Non-ST elevation (NSTEMI) myocardial infarction Status: Acute Assessment and Plan: Status post cardiac catheterization and PCI with Impella placement Aspirin, Brilinta and Tricor Hold ARB and beta-adwoa due to shock Patient on Integrilin infusion (5) CAD (coronary artery disease): Qualifiers: Associated angina: without angina Coronary Disease-Associated Artery/Lesion type: [place] artery [place] vs. transplanted heart: [place] heart Qualified Code(s): I25.10 - Atherosclerotic heart disease of [place] coronary artery without angina pectoris Code(s): I25.10 - Atherosclerotic heart disease of [place] coronary artery without angina pectoris Status: Chronic Assessment and Plan: See above (6) UTI (urinary tract infection): Qualifiers: Hematuria presence: without hematuria Urinary tract infection type: site unspecified Qualified Code(s): N39.0 - Urinary tract infection, site not specified Code(s): N39.0 - Urinary tract infection, site not specified Status: Acute Assessment and Plan: Urine culture grows coag-negative staph Patient is on vancomycin (7) Aortic stenosis: Code(s): I35.0 - Nonrheumatic aortic (valve) stenosis Status: Acute Assessment and Plan: Status post TAVR Additional Plan DVT prophylaxis -Lovenox Stress ulcer prophylaxis -ppi Nutrition -start Tube Feeds Code Status - Full Code Sliding scale insulin Case discussed with Dr. Lancaster from cardiology Total Critical Care Time - 35 minutes Due to a high probability of clinically significant, life threatening deterioration, the patient required my highest level of preparedness to intervene emergently and I personally spent this critical care time directly and personally managing the patient. This critical care time included obtaining a history; examining the patient; pulse oximetry; ordering and review of studies; arranging urgent treatment with development of a management plan; evaluation of patient's response to treatment; frequent reassessment; and discussions with other providers. It was exclusive of separately billable procedures and treating other patients and teaching time. Please see Assessment and Plan section and the rest of the note for further information on patient assessment and treatment [employer]oc Consult Note Consult date: 03/15/20 Time Seen: 09:30 HPI: Art Sousa is a 79 year old male who was admitted from care home on 03/11 with chief complaint of altered mental status he was diagnosed with UTI. Patient has history of coronary ar
[2020-03-15] MEDS: POLYMYXIN/TRIMETHOPRIM OPHTH 10 ML DROPS 1 DROP EACH EYE ×2 (09:52→19:54)
[2020-03-15] MEDS: COLLAGENASE OINT 30 GM TUBE 1 APPLIC TOPICAL (09:52)
[2020-03-15] MEDS: MEGESTROL ACETATE (*CHEMO) 20 MG TABLET PO (09:52)
[2020-03-15] MEDS: GABAPENTIN 100 MG CAPSULE PO (09:53)
[2020-03-15] MEDS: ASPIRIN 81 MG CHEWABLE TABLET PO (09:53)
[2020-03-15] MEDS: FOLIC ACID 1 MG TABLET PO (09:53)
[2020-03-15] MEDS: allopurinoL 100 MG TABLET PO (09:53)
[2020-03-15] MEDS: TICAGRELOR 90 MG TABLET PO ×2 (10:28→19:54)
[2020-03-15] MEDS: ACETAMINOPHEN 325 MG TABLET 650 MG PO (10:30)
[2020-03-15 10:36] LABS: Glucose Point of Care 72 (65-105)
[2020-03-15] MEDS: ALBUMIN HUMAN 25% 12.5 GM/50ML 50 ML IVPB ×2 (10:57→19:46)
[2020-03-15 11:12] LABS: Partial Thromboplastin Time 61.2 SECONDS (22.3-36.8)
--- NOTE | 2020-03-15 11:28 | PCDIET ---
Nutrition Follow-Up Complete: Nutrition Diagnosis: Increased protein needs r/t pressure ulcer on sacrum as evidence by daily protein needs of 86-104g daily for wound healing Nutrition Goal: Intake of 75% or greater of meals to meet increased needs Goal not met. Patient previously eating poorly and now intubated s/p cardiac cath. MD ordered to start tube feedings. Recommend Vital 1.5 at goal of 50mL/hr with Pro-Stat flush 1x daily for 1750kcal (given ~22hr infusion daily), 89g protein and 840mL free water. Agree with 30mL water flush every 4 hours. Last recorded weight is 86.1 kg which is stable. Bowel Motility: No documented BM, although abdomen documented as soft. Labs Reviewed: Hgb (9.0), Hct (29.3), Ca (10.8), Cl (113) Meds Noted: Albumin, Aztreonam, Fentanyl, Folic Acid, Novolog, Versed, Levophed, Protonix, Vancomycin Additional Notes: Vitamin D stopped which is appropriate. Sacral pressure noted; protein flush ordered. Nutrition Monitoring and Evaluation: Follow up every Thursday/Thursday. Follow daily in ICU rounds.
--- NOTE | 2020-03-15 12:31 | PM.EVENT ---
Event Note Event Note Event Note: Unable to Doppler left dorsalis pedis pulse. Dr. Alena roberts. Nurse spoke to Cardiology nurse practitioner Jo
[2020-03-15] MEDS: DEXTROSE 5% 1,000 ML 1,000 ML 11.8 ML IV CONT (13:00)
--- NOTE | 2020-03-15 13:07 | PC.NURSE ---
Unable to locate pedal or posterior tibial pulse during 1200 pulse check. Notified health and wellness sales consultant Dr. Maharaj who was also unable to locate pulse. Called Jo padilla/[facility] who notified Dr. Carvajal. Dr. Carvajal at bedside within 5 minutes also unable to locate pulse. Impella turned down to P1 and purge solution changed to D5 in preperation to pull sheath. PTT order timed at [address] Carvajal
[2020-03-15] MEDS: AZTREONAM 1 GM in DEXTROSE 5% IN WATER 50 ML IVPB ×2 (13:16→21:15)
--- NOTE | 2020-03-15 14:11 | PCSTNOTE ---
Per nursing, patient transferred to ICU due to heart complications, possible heart attack. Therapy will discontinue tx until assessed by MD and therapy is safe to resume.
[2020-03-15 15:11] LABS: Partial Thromboplastin Time 48.1 SECONDS (22.3-36.8)
[2020-03-15 16:19] LABS: Activated Clotting Time 169 sec (74-137)
[2020-03-15] MEDS: DEXTROSE 50% 25 GM/50 ML SYRINGE IV PUSH (17:21)
[2020-03-15] MEDS: FENOFIBRATE,MICRONIZED 48 MG TABLET PO (17:32)
[2020-03-15 17:40] LABS: Glucose Point of Care 53 (65-105)
[2020-03-15 17:40] LABS: Glucose Point of Care 66 (65-105)
--- NOTE | 2020-03-15 17:52 | PM.IMPN ---
Progress Note: A&P Assessment and Plan (1) CAD (coronary artery disease): Qualifiers: Associated angina: without angina Coronary Disease-Associated Artery/Lesion type: [place] artery [place] vs. transplanted heart: [place] heart Qualified Code(s): I25.10 - Atherosclerotic heart disease of [place] coronary artery without angina pectoris Code(s): I25.10 - Atherosclerotic heart disease of [place] coronary artery without angina pectoris Status: Chronic Assessment and Plan: Chronic. The patient has a hx of CAD with hx of multiple PCIs and CABG with a recent non STEMI 02/08/20. He underwent cardiac catheterization which revealed severe mutivessel CAD. PCI attempt to RCA was unsuccessful so medical management including DAPT was recommended. Troponin was elevated at admission with a flat trend and was lower than his prior baseline on review of previous labs. He denies chest pain at this time. Continue plavix, aspirin, metoprolol, nitroglycerin PRN, and rosuvastatin. Continue to monitor closely for symptoms. (2) Shock: Code(s): R57.9 - Shock, unspecified Status: Acute (3) Fever: Code(s): R50.9 - Fever, unspecified Status: Acute Assessment and Plan: on going fever, pt is on iv aztreonam (4) Acute respiratory failure: Code(s): J96.00 - Acute respiratory failure, unspecified whether with hypoxia or hypercapnia Status: Acute Assessment and Plan: pt is currently intubated (5) NSTEMI (non-ST elevated myocardial infarction): Code(s): I21.4 - Non-ST elevation (NSTEMI) myocardial infarction Status: Acute Assessment and Plan: Pt is sp heart cath and has impella device, pts legs are cold, pulling the impella now in icu (6) Clostridium difficile infection: Code(s): A49.8 - Other bacterial infections of unspecified site Status: Acute Assessment and Plan: no diarrhea ? unsure of diagnoisis (7) History of fall: Code(s): Z91.81 - History of falling Status: Acute (8) Altered mental status: Qualifiers: Altered mental status type: unspecified Qualified Code(s): R41.82 - Altered mental status, unspecified Code(s): R41.82 - Altered mental status, unspecified Status: Acute Assessment and Plan: history of dementia (9) Elevated troponin: Code(s): R79.89 - Other specified abnormal findings of blood chemistry Status: Acute (10) UTI (urinary tract infection): Qualifiers: Hematuria presence: without hematuria Urinary tract infection type: site unspecified Qualified Code(s): N39.0 - Urinary tract infection, site not specified Code(s): N39.0 - Urinary tract infection, site not specified Status: Acute Subjective Date/time seen: 03/15/20 17:52 Interval history: Pt transfered because of NSTEMI and respiratory distress, pulmonary edema. Pt intubated and had emergent heart cath now havig complications with impella and cold legs. Pt has significant cardiac history of TAVR, hypertension,CABG in 1999 with subsequent stents placement. Last catheterization February 08, [address] Keys and at that time the RAHMAN to LAD was patent Admitted this time with hematuria, UTI ? cdiff infection, fall and history of dementia No diarrhea noted history difficult to elicit as pt is intubated in icu pt had impella due to cardiogenic shock Review of Systems Review of Systems: ROS unobtainable: Yes unobtainable due to endotracheal tube Exam Narrative: Exam Narrative: Pt is intubated in icu pt has impella device Both legs cold with decreased pulses. Sp heart cath Objective Data Vital Signs Vital Signs: Vital Signs - 24 hr 03/14/20 20:30 03/14/20 21:08 03/14/20 23:16 Temperature 36.4 C L Pulse Rate 106 H 112 H Respiratory Rate 41 H 24 H 42 H Blood Pressure 122/60 115/55 L Pulse Oximetry 92 84 L 03/15/20 02:00 03/15/20 02:02 03/15/20 02:14
[2020-03-15 18:37] LABS: Activated Clotting Time 153 sec (74-137)
--- NOTE | 2020-03-15 18:51 | PM.PNCARD ---
Progress Note: A&P Assessment and Plan (1) Cardiogenic shock: Code(s): R57.0 - Cardiogenic shock Status: Acute Assessment and Plan: Shock, presumably cardiogenic shock, on Levophed at 4 mics. Impella support removed 03/15 pm because of a cold pulseless left foot, improved. (2) NSTEMI (non-ST elevated myocardial infarction): Code(s): I21.4 - Non-ST elevation (NSTEMI) myocardial infarction Status: Acute Assessment and Plan: Acute non-STEMI secondary to left main stenosis/thrombus, stented in the real estate appraiser supervisor hours of 03/15. Ostial Left anterior descending angioplasty. Troponin was 4.3 this morning Still on Integrilin. Continue aspirin and Brilinta as well as statin therapy. EKG and troponin in the morning. (3) Acute respiratory failure: Code(s): J96.00 - Acute respiratory failure, unspecified whether with hypoxia or hypercapnia Status: Acute Assessment and Plan: Acute respiratory failure on ventilator, FiO2 50%. Secondary to CHF and possible pneumonia (4) Ischemic cardiomyopathy: Code(s): I25.5 - Ischemic cardiomyopathy Status: Acute Assessment and Plan: EF 35%. Continue supportive care (5) UTI (urinary tract infection): Qualifiers: Hematuria presence: without hematuria Urinary tract infection type: site unspecified Qualified Code(s): N39.0 - Urinary tract infection, site not specified Code(s): N39.0 - Urinary tract infection, site not specified Status: Acute Assessment and Plan: Admitted with a UTI. Had a temperature of a 101? earlier today, on antibiotics Subjective Date/time seen: 03/15/20 18:51 Follow-up for CAD, NSTEMI, cardiogenic shock and CHF new line patient with history of TAVR, CABG in 1999, stents, HTN and dementia who was admitted for a UTI developed acute chest pain, EKG changes and CHF. He was taking to the geotechnical laboratory technician emergently by Dr. Lancaster 03/14-. He had a 70% stenosis of the left main with thrombus which was stented. He had balloon angioplasty of the ostial Left anterior descending. His EF was 35%. The patient was in cardiogenic shock and Impella was implanted for left ventricular support. Date of service: 03/15/2020 The patient remains intubated and on for mics of Levophed. He developed a pulseless left foot, although apparently, per the RNs, the popliteal pulse was still dopplerable. The Impella was removed a short while ago and hemostasis is obtained after 30 minutes. The nurses report a dopplerable left pedal pulse. FiO2 is 50%. Sinus tachycardia rate 102. Making urine. Review of Systems Review of Systems: Narrative: Review of systems obtained from the nurses. ROS unobtainable: Yes unobtainable due to endotracheal tube and unobtainable due to mental status Constitutional: Constitutional: Reports no additional constitutional complaints ENT: Reports system reviewed and no additional complaints, except as documented (Intubated) Cardiovascular: Cardiovascular: Reports no additional cardiovascular complaints Respiratory: Respiratory: Reports no additional respiratory complaints (Intubated) Gastrointestinal: Gastrointestinal: Reports no additional gastrointestinal complaints Comments: Tube feedings to start Musculoskeletal: Musculoskeletal: Reports no additional musculoskeletal complaints Neurologic: Reports system reviewed and no additional complaints, except as documented Comments: Sedated with Versed for the Impella removal Psychiatric: Psychiatric: Reports confusion Exam Narrative: Exam Narrative: Older male who appears a little disheveled, multiple tubes and lines, intubated, right femoral venous sheath, mildly tachypneic, sedated Const: General: comfortable HENMT: Mouth: Yes moist mucous membranes Ey
--- NOTE | 2020-03-15 18:53 | PM.PNCARD ---
Progress Note: A&P Additional Plan NSTEMI s/p PCI to left main and LAC, Cardiogenic shock and pulm edema, s/p impella insertion, now with left leg ischemia likely related to combination of impella, peripheral vasoconstriction and underlying PVD, ACT 153, plan impella removed and manual pressure applied for 30 min, at end there was no hematoma and Doppler flow restored in left DP artery. cont on DAPT, wean vasopressors as tolerated. Bed rest flat or upto 30 degree elevation. Doppler flow in leg every hour for 6 hours then every 6 hours. Subjective Date/time seen: 03/15/20 18:53 Interval history: called by nurse because of lack of pulsation in left leg patient intubated and sedated Tele: sinus rhythm Review of Systems Review of Systems: ROS unobtainable: Yes unobtainable due to endotracheal tube Exam Const: General: comfortable and no acute distress Neck: Neck: no JVD Resp: Auscultation: clear to auscultation bilaterally Cardio: Rate: regular rate Rhythm: regular rhythm Heart sounds: no murmurs Extrem: Other: Both extremities are cold but left leg has no palpable or Dopplerable pulse. Objective Data Vital Signs Vital Signs: Vital Signs - 24 hr 03/14/20 20:30 03/14/20 21:08 03/14/20 23:16 Temperature 36.4 C L Pulse Rate 106 H 112 H Respiratory Rate 41 H 24 H 42 H Blood Pressure 122/60 115/55 L Pulse Oximetry 92 84 L 03/15/20 02:00 03/15/20 02:02 03/15/20 02:14 Temperature 36.6 C 36.7 C Pulse Rate 92 93 92 Respiratory Rate 25 H 23 H Blood Pressure 100/52 L 70/50 L Pulse Oximetry 96 96 95 03/15/20 02:29 03/15/20 02:44 03/15/20 02:52 Temperature 36.8 C 36.7 C Pulse Rate 90 90 93 Respiratory Rate 20 24 H 22 H Blood Pressure 81/56 L 82/55 L Pulse Oximetry 95 95 94 03/15/20 02:59 03/15/20 03:29 03/15/20 03:49 Temperature 36.6 C 36.7 C Pulse Rate 94 92 91 Respiratory Rate 24 H 24 H Blood Pressure 87/67 L 98/60 L Pulse Oximetry 95 96 96 03/15/20 04:00 03/15/20 05:00 03/15/20 06:00 Temperature 36.6 C 36.4 C 36.6 C Pulse Rate 96 93 94 Respiratory Rate 22 H 22 H 24 H Blood Pressure 100/62 97/61 L 77/46 L Pulse Oximetry 96 95 96 03/15/20 07:00 03/15/20 08:00 03/15/20 08:02 Temperature 37.1 C 38.4 C H 38.4 C H Pulse Rate 94 97 99 Respiratory Rate 22 H 14 14 Blood Pressure 96/55 L 136/69 93/51 L Pulse Oximetry 98 99 99 03/15/20 08:10 03/15/20 08:59 03/15/20 10:00 Temperature 37.8 C H 38.1 C H Pulse Rate 100 101 H 100 Respiratory Rate 14 18 Blood Pressure 107/60 114/59 L Pulse Oximetry 96 98 100 03/15/20 10:30 03/15/20 11:00 03/15/20 11:30 Temperature 38.1 C H 38.1 C H 37.9 C H Pulse Rate 100 Respiratory Rate 18 Blood Pressure 102/51 L Pulse Oximetry 97 03/15/20 11:32 03/15/20 11:58 03/15/20 12:00 Temperature 37.9 C H 37.9 C H Pulse Rate 100 100 100 Respiratory Rate 18 18 Blood Pressure 110/49 L 110/49 L Pulse Oximetry 97 97 98 03/15/20 13:01 03/15/20 14:00 03/15/20 14:18 Temperature 37.9 C H 37.4 C Pulse Rate 100 97 98 Respiratory Rate 18 27 H Blood Pressure 108/46 L 112/46 L Pulse Oximetry 98 100 100 03/15/20 14:58 03/15/20 16:00 03/15/20 16:54 Temperature 36.9 C 37.4 C Pulse Rate 94 96 96 Respiratory Rate 25 H 19 Blood Pressure 147/60 H 113/50 L Pulse Oximetry 98 96 94 03/15/20 16:59 03/15/20 18:00 03/15/20 18:15 Temperature 37.2 C 37.2 C 37.2 C Pulse Rate 99 102 H 101 H Respiratory Rate 22 H 32 H 33 H Blood Pressure 110/49 L 102/42 L 106/52 L Pulse Oximetry 98 95 99 Intake/Output Intake/Output: Intake & Output 03/12/20 03/13/20 03/14/20 03/15/20 23:59 23:59 23:59 23:59 Intake Total 250 1550 1020 385 Output Total 300 650 700 829 Balance -50 900 376 -030 Meds/Results Medications: Active Medications Generic Name Dose Route Start Last Admin Trade Name Freq PRN Reason Stop Dose Admin Acetaminophen 650 mg 03/15/20 10:13 03/15/20 10:30 Tylenol Tablet PO 650 mg Q4H PRN Administr
[2020-03-15 19:14] LABS: Glucose Point of Care 87 (65-105)
[2020-03-15] MEDS: ROSUVASTATIN 10 MG TABLET 20 MG PO (19:54)
[2020-03-16] VITALS (30 sets, daily range): BP systolic 97–114; BP diastolic 43–50; PULSE 102–116; RESP 24–28; TEMP 36.8–37.3; O2SAT 90–99
[2020-03-16 00:12] LABS: Glucose Point of Care 93 (65-105)
[2020-03-16] MEDS: ALBUMIN HUMAN 25% 12.5 GM/50ML 50 ML IVPB ×2 (00:24→04:58)
[2020-03-16] MEDS: NOREPINEPHRINE 8 MG/D5W 250 ML 8 MG/250 ML BAG 9.4 MG IV CONT (03:09)
[2020-03-16 04:32] LABS: Base Excess ABG -2.2 mEq/l (+/-2.0); Carboxyhemoglobin 0.3 % THb (0-2.0); Fractional Inspired Oxygen 50 %; HCO3 ABG 21.8 mEq/l (22.0-26.0); Methemoglobin ABG 0.3 %THb (0-1.5); Oxygen Content ABG 10.6 %vol (16.0-22.0); Oxygen Saturation ABG 96.3 % (95.0-100.0); Oxyhemoglobin 94.2 % THb (90.0-100.0); PCO2 ABG 33.5 mmHg (35.0-45.0); PO2 ABG 80.8 mmHg (80.0-100.0); PO2 FiO2 Ratio Arterial Blood 1.62 %; Reduced Hemoglobin 5.2 %THb (0-5.0); pH ABG 7.431 (7.350-7.450)
[2020-03-16 04:33] LABS: Arterial Blood Gas PEEP 5 cmH2O; Arterial Blood Gas Tidal Volume 450 ml; Arterial Blood Gas Vent Mode CMV; Arterial Blood Gas Ventilator rate 18 /MIN; Device VENTILATOR; Modified Allen's Test Unable to perform; Site Drawn RIGHT RADIAL; Total Hemoglobin 7.9 g/dL (12.0-18.0)
[2020-03-16 04:52] LABS: Hematocrit 22.6 % (42.0-52.0); Mean Corpuscular HGB Conc 30.5 g/dl (32-36); Mean Corpuscular Hemoglobin 29.6 pg (26-34); Mean Platelet Volume 11.1 fl (7.4-10.4); Platelet Count Result 90 k/mm3 (150-375); Red Blood Count 2.33 M/mm3 (4.6-6.20); Red Cell Distribution Width 18.8 % (11.5-14.5); White Blood Count 14.6 K/mm3 (4.5-10.0)
[2020-03-16 04:55] LABS: Glucose Point of Care 56 (65-105)
[2020-03-16] MEDS: DEXTROSE 50% 25 GM/50 ML SYRINGE IV PUSH ×2 (04:56→11:15)
[2020-03-16] MEDS: LEVOTHYROXINE SODIUM 25 MCG TABLET PO (04:58)
[2020-03-16] MEDS: AZTREONAM 1 GM in DEXTROSE 5% IN WATER 50 ML IVPB ×3 (04:58→20:49)
[2020-03-16 05:02] LABS: Hemoglobin 6.9 g/dL (14.0-18.0)
[2020-03-16 05:16] LABS: Alanine Aminotransferase 10 U/L (4-50); Albumin Level 2.1 g/dL (3.5-5.1); Alkaline Phosphatase 58 U/L (38-126); Aspartate Amino Transferase 47 U/L (17-59); Bilirubin,Total 0.6 mg/dL (0.2-1.3); Blood Urea Nitrogen 20 mg/dL (9-20); Calcium 10.2 mg/dL (8.4-10.2); Carbon Dioxide 23 mmol/L (22-30); Chloride 113 mmol/L (98-107); Estimated CRCL calculation 50 ml/min; Estimated Glomerular Filt Rate 59; Glucose 84 mg/dL (75-110); Magnesium 1.6 mg/dL (1.6-2.3); Potassium 3.5 mmol/L (3.4-5.0); Sodium 139 mmol/L (137-145)
[2020-03-16 05:56] LABS: Glucose Point of Care 88 (65-105)
--- NOTE | 2020-03-16 07:00 | ECG_ITS ---
Measurements Intervals [place] Rate: 106 P: [place]: 0 QRS: -71 QRSD: 147 T: 83 QT: 342 QTc: 456 Interpretive Statements SINUS OR ECTOPIC ATRIAL TACHYCARDIA ATRIAL PREMATURE COMPLEX LEFT AXIS DEVIATION RIGHT BUNDLE BRANCH BLOCK ST-T WAVE ABNORMALITY IN SEPTAL LEADS- CONSIDER ACUTE POSTERIOR INFARCT ABNORMAL ECG Electronically Signed On 03-16-2020 9:29:40 CDT by Devin Hudson D.O.
--- NOTE | 2020-03-16 07:03 | P.CDI_ITS ---
CDI Query Clarification Request -Acute respiratory failure has been documented. You have documented pulmonary edema. Cardiology has documented that acute respiratory failure is secondary to CHF and possible pneumonia. Grounds Manager has documented acute respiratory failure secondary to cardiogenic shock, pulmonary edema, question of a pneumonia. -Flash pulmonary edema documented on cardiac cath procedure note and noted EF 35% Please clarify cause and acuity of pulmonary edema: * NSTEMI *Acute pulmonary edema * CHF(include type and acuity) *Chronic pulmonary edema * Other *Acute on Chronic pulmonary edema * Unable to determine *Unable to determine <Mendy Parisi RN - Last Filed: 03/16/20 07:20> Nstemi Acutre pulmonary edema Cardiogenic shock <Yvonne Ricci MD - Last Filed: 03/20/20 08:00>
[2020-03-16] MEDS: allopurinoL 100 MG TABLET PO (08:07)
[2020-03-16] MEDS: TICAGRELOR 90 MG TABLET PO ×2 (08:07→20:49)
[2020-03-16] MEDS: COLLAGENASE OINT 30 GM TUBE 1 APPLIC TOPICAL (08:07)
[2020-03-16] MEDS: FOLIC ACID 1 MG TABLET PO (08:07)
[2020-03-16] MEDS: POLYMYXIN/TRIMETHOPRIM OPHTH 10 ML DROPS 1 DROP EACH EYE ×2 (08:07→20:48)
[2020-03-16] MEDS: PANTOPRAZOLE SODIUM IV 40 MG VIAL IV PUSH (08:07)
[2020-03-16] MEDS: ASPIRIN 81 MG CHEWABLE TABLET PO (08:08)
[2020-03-16 08:09] LABS: Mean Platelet Volume 10.7 fl (7.4-10.4); Platelet Count Result 87 k/mm3 (150-375)
[2020-03-16 08:19] LABS: INR 1.7; Prothrombin Time 19.8 Seconds (11.1-14.7)
[2020-03-16 08:20] LABS: Partial Thromboplastin Time 43.4 SECONDS (22.3-36.8)
[2020-03-16 08:21] LABS: Magnesium 1.6 mg/dL (1.6-2.3)
[2020-03-16 08:26] LABS: Fibrinogen 356 mg/dl (215-510)
[2020-03-16 08:37] LABS: D Dimer 10.31 ug/mL (<0.48)
--- NOTE | 2020-03-16 09:24 | WPDINTPN ---
Progress Note: A&P Assessment and Plan (1) Acute respiratory failure: Code(s): J96.00 - Acute respiratory failure, unspecified whether with hypoxia or hypercapnia Status: Acute Assessment and Plan: Acute Respiratory failure secondary to Cardiogenic shock, pulmonary edema, question of a pneumonia Continue full mechanical ventilation support to prevent hypoxemia/hypercarbia and end organ damage. ABG and PCXR reviewed, increase PEEP to 8 Low tidal volume ventilation strategy to prevent volutrauma Continue Bronchodilators Fentanyl and Versed for sedation, maintain RASS of 0 to -2, daily sedation vacation, (2) Fever: Code(s): R50.9 - Fever, unspecified Status: Acute Assessment and Plan: Patient was being treated for UTI Urine culture growing coag-negative staph which was sensitive to vancomycin Continue vancomycin and aztreonam Blood in urine cultures are pending (3) Shock: Code(s): R57.9 - Shock, unspecified Status: Acute Assessment and Plan: Most likely cardiogenic versus septic Impella was removed on 03/15 due to left lower extremity ischemia Continue Levophed, titrate to maintain mean pressures greater than 65 mmHg worth of bed yes gases yes we have I-1 prior Patient was given IV fluids during cardiac catheterization d/w cardiology, will diurese with lasix 20 mg Iv x1 (4) NSTEMI (non-ST elevated myocardial infarction): Code(s): I21.4 - Non-ST elevation (NSTEMI) myocardial infarction Status: Acute Assessment and Plan: Status post cardiac catheterization and PCI to left main coronary artery with Impella placement on 03/14/2020 -Impella was removed on 03/15/2020 due to left lower extremity ischemia Aspirin, Brilinta and Tricor Hold ARB and beta-adwoa due to shock (5) CAD (coronary artery disease): Qualifiers: Associated angina: without angina Coronary Disease-Associated Artery/Lesion type: [place] artery [place] vs. transplanted heart: [place] heart Qualified Code(s): I25.10 - Atherosclerotic heart disease of [place] coronary artery without angina pectoris Code(s): I25.10 - Atherosclerotic heart disease of [place] coronary artery without angina pectoris Status: Chronic Assessment and Plan: See above (6) UTI (urinary tract infection): Qualifiers: Hematuria presence: without hematuria Urinary tract infection type: site unspecified Qualified Code(s): N39.0 - Urinary tract infection, site not specified Code(s): N39.0 - Urinary tract infection, site not specified Status: Acute Assessment and Plan: Urine culture grows coag-negative staph Patient is on vancomycin (7) Aortic stenosis: Code(s): I35.0 - Nonrheumatic aortic (valve) stenosis Status: Acute Assessment and Plan: Status post TAVR Additional Plan DVT prophylaxis -Lovenox Stress ulcer prophylaxis -ppi Nutrition -start Tube Feeds Code Status - Full Code Sliding scale insulin Case discussed with Dr. Lancaster from cardiology Total Critical Care Time - 33 minutes Due to a high probability of clinically significant, life threatening deterioration, the patient required my highest level of preparedness to intervene emergently and I personally spent this critical care time directly and personally managing the patient. This critical care time included obtaining a history; examining the patient; pulse oximetry; ordering and review of studies; arranging urgent treatment with development of a management plan; evaluation of patient's response to treatment; frequent reassessment; and discussions with other providers. It was exclusive of separately billable procedures and treating other patients and teaching time. Please see Assessment and Plan section and the rest of the note for further information on patient assessment and treatment Subjective Date/time seen: 03/16/20 09:24 Interval history: Reason for consult: Chest pain,
--- NOTE | 2020-03-16 10:51 | PM.PNCARD ---
Progress Note: A&P Assessment and Plan (1) Ischemic cardiomyopathy: Code(s): I25.5 - Ischemic cardiomyopathy Status: Acute Assessment and Plan: Impella was removed yesterday. remains on 8 mcg of Levophed. will administer 1 dose of Lasix 20 mg IV because he is severely edematous. and if tolerates we can schedule more dosages. (2) Cardiogenic shock: Code(s): R57.0 - Cardiogenic shock Status: Acute (3) Fever: Code(s): R50.9 - Fever, unspecified Status: Acute Assessment and Plan: Started on antibiotics (4) NSTEMI (non-ST elevated myocardial infarction): Code(s): I21.4 - Non-ST elevation (NSTEMI) myocardial infarction Status: Acute Assessment and Plan: continue aspirin and Brilinta. left main stenting. remove the sheath from the right femoral artery and vein Subjective Date/time seen: Date of [id number]/26/20 10:51 chief complaint: NSTEMI patient remains intubated, Impella was removed yesterday, under Levophed 8 mics, very edematous. chest x-ray looks congested. hemoglobin this morning 6.9 and getting 1 unit blood transfusion Review of Systems Review of Systems: ROS unobtainable: Yes unobtainable due to endotracheal tube Exam Const: General: no acute distress and well developed HENMT: General nose exam: no epistaxis Eyes: Sclera: abnormal sclerae and normal sclerae Neck: Lymphatic: lymphadenopathy not noted Resp: Auscultation: crackles Cardio: Rate: regular rate Rhythm: regular rhythm Heart sounds: no murmurs GI: Inspection: non-distended Auscultation: bowels sounds normal : Male General Exam: No tenderness Urinary Catheter: Urinary Catheter: patent and draining Skin: General skin exam: normal color and no erythema Neuro: Other: sedated and ventilated Extrem: General: edema and pedal edema Other: diffuse edema Psych: Mental Status: mental status grossly normal Objective Data Vital Signs Vital Signs: Vital Signs - 24 hr 03/15/20 11:00 03/15/20 11:30 03/15/20 11:32 Temperature 38.1 C H 37.9 C H Pulse Rate 100 100 Respiratory Rate 18 Blood Pressure 102/51 L Pulse Oximetry 97 97 03/15/20 11:58 03/15/20 12:00 03/15/20 13:01 Temperature 37.9 C H 37.9 C H 37.9 C H Pulse Rate 100 100 100 Respiratory Rate 18 18 18 Blood Pressure 110/49 L 110/49 L 108/46 L Pulse Oximetry 97 98 98 03/15/20 14:00 03/15/20 14:18 03/15/20 14:58 Temperature 37.4 C 36.9 C Pulse Rate 97 98 94 Respiratory Rate 27 H 25 H Blood Pressure 112/46 L 147/60 H Pulse Oximetry 100 100 98 03/15/20 16:00 03/15/20 16:54 03/15/20 16:59 Temperature 37.4 C 37.2 C Pulse Rate 96 96 99 Respiratory Rate 19 22 H Blood Pressure 113/50 L 110/49 L Pulse Oximetry 96 94 98 03/15/20 18:00 03/15/20 18:15 03/15/20 20:00 Temperature 37.2 C 37.2 C 37.1 C Pulse Rate 102 H 101 H 109 H Respiratory Rate 32 H 33 H 26 H Blood Pressure 102/42 L 106/52 L 116/47 L Pulse Oximetry 95 99 99 03/15/20 20:10 03/15/20 22:00 03/15/20 22:50 Temperature Pulse Rate 123 H 119 H 118 H Respiratory Rate 24 H 24 H Blood Pressure 92/67 L Pulse Oximetry 97 97 03/15/20 23:03 03/16/20 00:00 03/16/20 02:00 Temperature 37.3 C Pulse Rate 117 H 112 H 106 H Respiratory Rate 24 H 24 H Blood Pressure 107/46 L 106/44 L Pulse Oximetry 97 98 98 03/16/20 02:10 03/16/20 03:09 03/16/20 04:00 Temperature 37.1 C Pulse Rate 105 H 104 H 102 H Respiratory Rate 25 H Blood Pressure 113/50 L 99/43 L Pulse Oximetry 98 98 03/16/20 04:38 03/16/20 06:00 03/16/20 07:41 Temperature Pulse Rate 103 H 106 H 108 H Respiratory Rate 26 H Blood Pressure 97/48 L Pulse Oximetry 97 98 99 03/16/20 08:00 03/16/20 08:23 03/16/20 08:39 Temperature 36.8 C 36.9 C 36.9 C Pulse Rate 110 H 111 H 113 H Respiratory Rate 28 H 26 H 26 H Blood Pressure 111/44 L 105/47 L 114/43 L Pulse Oximetry 98 99 97 Intake/Output Intake/Output: In
[2020-03-16] MEDS: FUROSEMIDE INJ 40 MG/4 ML VIAL 20 MG IV PUSH (11:06)
[2020-03-16 11:13] LABS: Glucose Point of Care 67 (65-105)
--- NOTE | 2020-03-16 11:34 | PCDIET ---
Nutrition Follow-Up Complete: Nutrition Diagnosis: Increased protein needs related to pressure ulcer on sacrum as evidence by daily protein needs of 86-104g daily for wound healing Nutrition Goal: Intake of 75% or greater of meals to meet increased needs Goal in progress. Patient tolerating Vital 1.5 at 40mL/hr with RN plan to increase to goal of 50mL/hr. Pro-Stat flush ordered 1x daily. Last recorded weight is 86.1 kg which is stable. Bowel Motility: No documented BM. Labs Reviewed: Hgb (6.9), Hct (22.6), Alb (2.1) Meds Noted: Aztreonam, Novolog, Versed, Vancomycin, Fentanyl, Folic Acid, Levophed, Protonix Additional Notes: Sacral ulcer documented. Patient receiving blood today. Recommend continuing present tube feeding. Nutrition Monitoring and Evaluation: Follow up every Thursday/Thursday. Follow daily in ICU rounds.
[2020-03-16 13:39] LABS: Hemoglobin 8.3 g/dL (14.0-18.0)
--- NOTE | 2020-03-16 14:15 | WPDINFPN2 ---
Progress Note: A&P Assessment and Plan (1) Stool culture positive for Clostridium difficile: Code(s): R19.5 - Other fecal abnormalities Status: Acute Assessment and Plan: IMP False + C diff assay,suggestive of recent but not active infection REC No further testing nor Rx unless diarrhea. Subjective Date/time seen: 03/16/20 14:15 Objective Data Vital Signs Vital Signs: Vital Signs - 24 hr 03/15/20 14:18 03/15/20 14:58 03/15/20 16:00 Temperature 36.9 C 37.4 C Pulse Rate 98 94 96 Respiratory Rate 25 H 19 Blood Pressure 147/60 H 113/50 L Pulse Oximetry 100 98 96 03/15/20 16:54 03/15/20 16:59 03/15/20 18:00 Temperature 37.2 C 37.2 C Pulse Rate 96 99 102 H Respiratory Rate 22 H 32 H Blood Pressure 110/49 L 102/42 L Pulse Oximetry 94 98 95 03/15/20 18:15 03/15/20 20:00 03/15/20 20:10 Temperature 37.2 C 37.1 C Pulse Rate 101 H 109 H 123 H Respiratory Rate 33 H 26 H Blood Pressure 106/52 L 116/47 L Pulse Oximetry 99 99 97 03/15/20 22:00 03/15/20 22:50 03/15/20 23:03 Temperature Pulse Rate 119 H 118 H 117 H Respiratory Rate 24 H 24 H Blood Pressure 92/67 L Pulse Oximetry 97 97 03/16/20 00:00 03/16/20 02:00 03/16/20 02:10 Temperature 37.3 C Pulse Rate 112 H 106 H 105 H Respiratory Rate 24 H 24 H Blood Pressure 107/46 L 106/44 L Pulse Oximetry 98 98 98 03/16/20 03:09 03/16/20 04:00 03/16/20 04:38 Temperature 37.1 C Pulse Rate 104 H 102 H 103 H Respiratory Rate 25 H Blood Pressure 113/50 L 99/43 L Pulse Oximetry 98 97 03/16/20 06:00 03/16/20 07:41 03/16/20 08:00 Temperature 36.8 C Pulse Rate 106 H 108 H 110 H Respiratory Rate 26 H 28 H Blood Pressure 97/48 L 111/44 L Pulse Oximetry 98 99 98 03/16/20 08:23 03/16/20 08:39 03/16/20 09:39 Temperature 36.9 C 36.9 C 36.8 C Pulse Rate 111 H 113 H 108 H Respiratory Rate 26 H 26 H 27 H Blood Pressure 105/47 L 114/43 L 105/48 L Pulse Oximetry 99 97 97 03/16/20 10:00 03/16/20 10:59 03/16/20 11:42 Temperature 37.0 C Pulse Rate 107 H 108 H 111 H Respiratory Rate 25 H 27 H Blood Pressure 109/49 L 109/49 L Pulse Oximetry 97 98 97 03/16/20 12:00 Temperature 37.1 C Pulse Rate 107 H Respiratory Rate 27 H Blood Pressure 102/46 L Pulse Oximetry 96 Intake/Output Intake/Output: Intake & Output 03/13/20 03/14/20 03/15/20 03/16/20 23:59 23:59 23:59 23:59 Intake Total 1550 1020 835 952 Output Total 650 700 829 500 Balance 900 320 6 452 Meds/Results Medications: Active Medications Generic Name Dose Route Start Last Admin Trade Name Freq PRN Reason Stop Dose Admin Acetaminophen 650 mg 03/15/20 10:13 03/15/20 10:30 Tylenol Tablet PO 650 mg Q4H PRN Administration Mild Pain (1-3) or Fever Allopurinol 100 mg 03/12/20 09:00 03/16/20 08:07 Zyloprim PO 100 mg DAILY RO[facility] Administration Aspirin 81 mg 03/12/20 08:00 03/16/20 08:08 Aspirin Chewable PO 81 mg DAILY@0800 [facility] Administration Collagenase 1 applic 03/12/20 09:00 03/16/20 08:07 Santyl Oint TOPICAL 1 applic QAM ROYER Administration Dextrose 12.5 gm 03/15/20 10:16 03/16/20 11:15 Dextrose 50% Syringe IV PUSH 12.5 gm PRN PRN Administration Hypoglycemia Protocol Enoxaparin Sodium 40 mg 03/16/20 09:00 03/16/20 11:06 Lovenox SUB-Q Not Given DAILY [facility] Fenofibrate 48 mg 03/11/20 22:35 03/15/20 17:32 Tricor PO 48 mg QPM RO[facility] Administration Folic Acid 1 mg 03/12/20 09:00 03/16/20 08:07 Folic Acid PO 1 mg DAILY [facility] Administration Glucagon 1 mg 03/15/20 10:16 Glucagon For Inj IM PRN PRN Hypoglycemia Protocol Glucose 15 gm 03/15/20 10:16 Glutose 15 PO PRN PRN Hypoglycemia Protocol Vancomycin HCl 1,250 mg in 250 mls @ 200 mls/hr 03/13/20 18:00 03/15/20 19:46 Vancomycin 1,250 Mg/D5w 250 Ml IVPB Infused Q24H [facility] Infusion Midazolam HCl 50 mg in 100 mls @ 4 mls/hr
[2020-03-16] MEDS: NEOMYCIN/POLYMYXIN/BACITRACIN OINTMENT PACKET 1 PACKET (16:11)
--- NOTE | 2020-03-16 17:08 | PM.IMPN ---
Progress Note: A&P Assessment and Plan (1) CAD (coronary artery disease): Qualifiers: Coronary Disease-Associated Artery/Lesion type: [place] artery [place] vs. transplanted heart: [place] heart Associated angina: without angina Qualified Code(s): I25.10 - Atherosclerotic heart disease of [place] coronary artery without angina pectoris Code(s): I25.10 - Atherosclerotic heart disease of [place] coronary artery without angina pectoris Status: Chronic (2) Shock: Code(s): R57.9 - Shock, unspecified Status: Acute (3) Fever: Code(s): R50.9 - Fever, unspecified Status: Acute Assessment and Plan: Pt is on iv aztreonam (4) Acute respiratory failure: Code(s): J96.00 - Acute respiratory failure, unspecified whether with hypoxia or hypercapnia Status: Acute Assessment and Plan: Pt is currently intubated (5) NSTEMI (non-ST elevated myocardial infarction): Code(s): I21.4 - Non-ST elevation (NSTEMI) myocardial infarction Status: Acute Assessment and Plan: Pt is sp heart cath and had impella device (6) Clostridium difficile infection: Code(s): A49.8 - Other bacterial infections of unspecified site Status: Acute Assessment and Plan: no diarrhea ? unsure of diagnoisis (7) History of fall: Code(s): Z91.81 - History of falling Status: Acute (8) Altered mental status: Qualifiers: Altered mental status type: unspecified Qualified Code(s): R41.82 - Altered mental status, unspecified Code(s): R41.82 - Altered mental status, unspecified Status: Acute Assessment and Plan: history of dementia (9) Elevated troponin: Code(s): R79.89 - Other specified abnormal findings of blood chemistry Status: Acute (10) UTI (urinary tract infection): Qualifiers: Hematuria presence: without hematuria Urinary tract infection type: site unspecified Qualified Code(s): N39.0 - Urinary tract infection, site not specified Code(s): N39.0 - Urinary tract infection, site not specified Status: Acute Subjective Date/time seen: 03/16/20 17:08 Interval history: Pt transfered because of NSTEMI and respiratory distress, pulmonary edema. Pt intubated and had emergent heart cath now havig complications with impella and cold legs. Pt has significant cardiac history of TAVR, hypertension,CABG in 1999 with subsequent stents placement. Last catheterization February 08, [address] Keys and at that time the RAHMAN to LAD was patent Admitted this time with hematuria, UTI ? cdiff infection, fall and history of dementia No diarrhea noted history difficult to elicit as pt is intubated in icu Pt had impella due to cardiogenic shock, impella removed yesterday Review of Systems Review of Systems: ROS unobtainable: Yes unobtainable due to endotracheal tube Exam Narrative: Exam Narrative: Pt is intubated in icu Sp heart cath lungs clear legs soft with pulses Objective Data Vital Signs Vital Signs: Vital Signs - 24 hr 03/15/20 18:00 03/15/20 18:15 03/15/20 20:00 Temperature 37.2 C 37.2 C 37.1 C Pulse Rate 102 H 101 H 109 H Respiratory Rate 32 H 33 H 26 H Blood Pressure 102/42 L 106/52 L 116/47 L Pulse Oximetry 95 99 99 03/15/20 20:10 03/15/20 22:00 03/15/20 22:50 Temperature Pulse Rate 123 H 119 H 118 H Respiratory Rate 24 H 24 H Blood Pressure 92/67 L Pulse Oximetry 97 97 03/15/20 23:03 03/16/20 00:00 03/16/20 02:00 Temperature 37.3 C Pulse Rate 117 H 112 H 106 H Respiratory Rate 24 H 24 H Blood Pressure 107/46 L 106/44 L Pulse Oximetry 97 98 98 03/16/20 02:10 03/16/20 03:09 03/16/20 04:00 Temperature 37.1 C Pulse Rate 105 H 104 H 102 H Respiratory Rate 25 H Blood Pressure 113/50 L 99/43 L Pulse Oximetry 98 98 03/16/20 04:38 03/16/20 06:00 03/16/20 07:41 Temperature Pulse Rate 103 H 106 H 108 H Respiratory Rate 26 H
[2020-03-16 17:51] LABS: Vancomycin Trough 13.5 ug/mL (10.0-20.0)
[2020-03-16] MEDS: FENOFIBRATE,MICRONIZED 48 MG TABLET PO (18:09)
[2020-03-16 18:16] LABS: Glucose Point of Care 81 (65-105)
[2020-03-16] MEDS: NOREPINEPHRINE 8 MG/D5W 250 ML 8 MG/250 ML BAG 15 MG IV CONT (20:12)
[2020-03-16] MEDS: ROSUVASTATIN 10 MG TABLET 20 MG PO (20:48)
[2020-03-17] VITALS (41 sets, daily range): BP systolic 72–127; BP diastolic 45–68; PULSE 108–145; RESP 18–29; TEMP 35.7–37.1; O2SAT 91–97
[2020-03-17 00:21] LABS: Glucose Point of Care 109 (65-105)
[2020-03-17 05:15] LABS: Alveolar/Arterial O2 Gradient 182.9 mmHg; Base Excess ABG -1.3 mEq/l (+/-2.0); Carboxyhemoglobin 0.3 % THb (0-2.0); Fractional Inspired Oxygen 45 %; HCO3 ABG 23.5 mEq/l (22.0-26.0); Methemoglobin ABG 0.4 %THb (0-1.5); Oxygen Content ABG 12.5 %vol (16.0-22.0); Oxyhemoglobin 95.5 % THb (90.0-100.0); PCO2 ABG 39.9 mmHg (35.0-45.0); PO2 ABG 92.6 mmHg (80.0-100.0); PO2 FiO2 Ratio Arterial Blood 2.06 %; Reduced Hemoglobin 3.8 %THb (0-5.0); Total Hemoglobin 9.2 g/dL (12.0-18.0); pH ABG 7.388 (7.350-7.450)
[2020-03-17 05:17] LABS: Device VENTILATOR; Modified Allen's Test Unable to perform; Site Drawn RIGHT RADIAL
[2020-03-17 05:18] LABS: Arterial Blood Gas PEEP 8 cmH2O; Arterial Blood Gas Tidal Volume 450 ml; Arterial Blood Gas Vent Mode CMV; Arterial Blood Gas Ventilator rate 18 /MIN
[2020-03-17 05:49] LABS: Hemoglobin 8.4 g/dL (14.0-18.0); Mean Corpuscular HGB Conc 31.1 g/dl (32-36); Mean Corpuscular Volume 96.4 fl (80-100); Platelet Count Result 96 k/mm3 (150-375); Red Cell Distribution Width 19.2 % (11.5-14.5); White Blood Count 14.9 K/mm3 (4.5-10.0)
[2020-03-17 06:02] LABS: Alanine Aminotransferase 10 U/L (4-50); Albumin Level 2.1 g/dL (3.5-5.1); Alkaline Phosphatase 94 U/L (38-126); Aspartate Amino Transferase 32 U/L (17-59); Bilirubin,Total 0.4 mg/dL (0.2-1.3); Blood Urea Nitrogen 22 mg/dL (9-20); Calcium 10.5 mg/dL (8.4-10.2); Carbon Dioxide 25 mmol/L (22-30); Chloride 110 mmol/L (98-107); Estimated CRCL calculation 44 ml/min; Estimated Glomerular Filt Rate 49; Glucose 158 mg/dL (75-110); Magnesium 1.6 mg/dL (1.6-2.3); Potassium 3.2 mmol/L (3.4-5.0); Sodium 136 mmol/L (137-145)
[2020-03-17] MEDS: LEVOTHYROXINE SODIUM 25 MCG TABLET PO (06:02)
[2020-03-17] MEDS: AZTREONAM 1 GM in DEXTROSE 5% IN WATER 50 ML IVPB ×3 (06:02→20:38)
[2020-03-17 06:03] LABS: Lactic Acid 2.5 mmol/L (0.7-2.1)
--- NOTE | 2020-03-17 08:29 | WPDINTPN ---
Progress Note: A&P Assessment and Plan (1) Acute respiratory failure: Qualifiers: Respiratory failure complication: unspecified whether with hypoxia or hypercapnia Qualified Code(s): J96.00 - Acute respiratory failure, unspecified whether with hypoxia or hypercapnia Code(s): J96.00 - Acute respiratory failure, unspecified whether with hypoxia or hypercapnia Status: Acute Assessment and Plan: Acute Respiratory failure secondary to Cardiogenic shock, pulmonary edema, possible pneumonia Continue full mechanical ventilation support to prevent hypoxemia/hypercarbia and end organ damage. ABG and PCXR reviewed, increase PEEP to10 Low tidal volume ventilation strategy to prevent volutrauma Continue Bronchodilators Fentanyl and Versed for sedation, maintain RASS of 0 to -2, daily sedation vacation, (2) Fever: Qualifiers: Fever type: unspecified Qualified Code(s): R50.9 - Fever, unspecified Code(s): R50.9 - Fever, unspecified Status: Acute Assessment and Plan: Fevers resolved. Likely could be related to UTI Urine culture growing coag-negative staph which was sensitive to vancomycin Continue vancomycin and aztreonam Blood cultures are negative Sputum cultures pending (3) Shock: Code(s): R57.9 - Shock, unspecified Status: Acute Assessment and Plan: Most likely cardiogenic versus septic Impella was removed on 03/15 due to left lower extremity ischemia Continue Levophed, titrate to maintain mean pressures greater than 65 mmHg Patient was given IV fluids during cardiac catheterization Will diurese with albumin and Lasix (4) NSTEMI (non-ST elevated myocardial infarction): Code(s): I21.4 - Non-ST elevation (NSTEMI) myocardial infarction Status: Acute Assessment and Plan: Status post cardiac catheterization and PCI to left main coronary artery with Impella placement on 03/14/2020 -Impella was removed on 03/15/2020 due to left lower extremity ischemia Aspirin, Brilinta and Tricor Hold ARB and beta-adwoa due to shock (5) CAD (coronary artery disease): Qualifiers: Coronary Disease-Associated Artery/Lesion type: [place] artery [place] vs. transplanted heart: [place] heart Associated angina: without angina Qualified Code(s): I25.10 - Atherosclerotic heart disease of [place] coronary artery without angina pectoris Code(s): I25.10 - Atherosclerotic heart disease of [place] coronary artery without angina pectoris Status: Chronic Assessment and Plan: See above (6) UTI (urinary tract infection): Qualifiers: Hematuria presence: without hematuria Urinary tract infection type: site unspecified Qualified Code(s): N39.0 - Urinary tract infection, site not specified Code(s): N39.0 - Urinary tract infection, site not specified Status: Acute Assessment and Plan: Urine culture grows coag-negative staph Patient is on vancomycin (7) Aortic stenosis: Code(s): I35.0 - Nonrheumatic aortic (valve) stenosis Status: Acute Assessment and Plan: Status post TAVR (8) Dietary counseling and surveillance: Code(s): Z71.3 - Dietary counseling and surveillance Status: Acute Assessment and Plan: Patient with tube feed increase tube feed residual, will hold tube feeds for now -started on Reglan Stress ulcer prophylaxis: Protonix (9) DVT prophylaxis: Code(s): Z29.9 - Encounter for prophylactic measures, unspecified Status: Acute Assessment and Plan: Continue Lovenox Additional Plan Will update family Code Status - Full Code Total Critical Care Time: 34 minutes Due to a high probability of clinically significant, life threatening deterioration, the patient required my highest level of preparedness to intervene emergently and I personally spent this critical care time directly and personally managing the patient. This critical care time in
[2020-03-17] MEDS: TICAGRELOR 90 MG TABLET PO ×2 (09:08→20:38)
[2020-03-17] MEDS: FOLIC ACID 1 MG TABLET PO (09:09)
[2020-03-17] MEDS: ALBUMIN HUMAN 25% 25 GM/100 ML 100 ML IVPB ×2 (09:10→20:37)
[2020-03-17] MEDS: allopurinoL 100 MG TABLET PO (09:10)
[2020-03-17] MEDS: PANTOPRAZOLE SODIUM IV 40 MG VIAL IV PUSH (09:11)
[2020-03-17] MEDS: POLYMYXIN/TRIMETHOPRIM OPHTH 10 ML DROPS 1 DROP EACH EYE ×2 (09:11→20:37)
[2020-03-17] MEDS: METOCLOPRAMIDE HCL INJ 10 MG/2 ML VIAL IV PUSH ×2 (09:11→17:38)
[2020-03-17] MEDS: ASPIRIN 81 MG CHEWABLE TABLET PO (09:12)
[2020-03-17] MEDS: MAGNESIUM SULF 2 GM/WATER 50ML 2 GM/50 ML BAG IVPB (09:58)
[2020-03-17] MEDS: ENOXAPARIN 40 MG/0.4 ML SYRINGE SUB-Q (09:58)
[2020-03-17] MEDS: COLLAGENASE OINT 30 GM TUBE 1 APPLIC TOPICAL (09:58)
[2020-03-17 11:46] LABS: Glucose Point of Care 98 (65-105)
[2020-03-17] MEDS: FUROSEMIDE INJ 40 MG/4 ML VIAL 20 MG IV PUSH ×2 (11:49→17:33)
[2020-03-17] MEDS: NOREPINEPHRINE 8 MG/D5W 250 ML 8 MG/250 ML BAG 24.4 MG IV CONT (11:52)
--- NOTE | 2020-03-17 15:07 | PM.PNCARD ---
Progress Note: A&P Assessment and Plan (1) Ischemic cardiomyopathy: Code(s): I25.5 - Ischemic cardiomyopathy Status: Acute Assessment and Plan: EF was 35%. Had moderate mitral regurgitation by echo January 2020. More tachycardic than yesterday. Remains on Levophed, escalating dose. Discussed with Dr. Freeman. Will try low-dose dobutamine to see if we can improve renal perfusion, although with caution due to the patient's recent MS and sinus tachycardia. Probably again try Lasix later. (2) Cardiogenic shock: Code(s): R57.0 - Cardiogenic shock Status: Acute Assessment and Plan: Remains on Levophed and fortunately the dose was increased. Unclear if this is all cardiogenic shock or partly due to UTI/sepsis. (3) Fever: Qualifiers: Fever type: unspecified Qualified Code(s): R50.9 - Fever, unspecified Code(s): R50.9 - Fever, unspecified Status: Acute Assessment and Plan: Started on antibiotics for UTI (4) NSTEMI (non-ST elevated myocardial infarction): Code(s): I21.4 - Non-ST elevation (NSTEMI) myocardial infarction Status: Acute Assessment and Plan: continue aspirin and Brilinta. left main stenting, angioplasty of the ostial Left anterior descending. Subjective Date/time seen: 03/17/20 15:07 Interval history: Follow-up for NSTEMI, status post JUDIT to left main and proximal Left anterior descending angioplasty on 03/14/2020: EF 35%, acute respiratory failure requiring intubation on 03/15/2020, CHF, shock on Levophed. Impella was removed on when his dorsalis pedis pulse was lost, with improvement. Date of service 03/17/2020: Patient remains intubated, 45% FiO2. Remains on Levophed which was increased from 8 mcg yesterday to 14 mcg/min. Sedated with fentanyl 50 mcg/min and Versed 2 mg/min. Urine has been low,, with I's and O's on 03/16/2020 of 2300 in, 800 out. Patient is afebrile. Lactic acid 2.5 (5.0 on admission). Given 1 dose of Lasix yesterday because of severe edema and CHF. 1 unit of blood on Thursday. Telemetry shows sinus tachycardia. Review of Systems Review of Systems: Narrative: Review of systems was obtained from the chart, and discussion with Dr. Pete VARGAS unobtainable: Yes unobtainable due to endotracheal tube and unobtainable due to mental status Constitutional: Constitutional: Reports no additional constitutional complaints Eyes: Eyes: Reports no additional eye complaints Cardiovascular: Cardiovascular: Reports no additional cardiovascular complaints Respiratory: Respiratory: Reports no additional respiratory complaints Gastrointestinal: Gastrointestinal: Reports no additional gastrointestinal complaints Exam Narrative: Exam Narrative: Ill-appearing older male, intubated, multiple lines and tubes, unresponsive, sedated. Const: General: comfortable and no acute distress HENMT: Mouth: Yes moist mucous membranes Eyes: Sclera: sclerae normal Neck: Neck: supple and no JVD Thyroid: thyroid normal Resp: Auscultation: clear to auscultation bilaterally (Clear anteriorly) Cardio: Rate: tachycardic Rhythm: regular rhythm GI: Auscultation: abnormal bowel sounds (Diminished bowel sounds but soft and nontender) Neuro: Cognition (Neuro): abnormal cognition Extrem: Right upper extremity: edema Left upper extremity: edema Right lower extremity: edema Left lower extremity: edema Other: Moderate upper and lower extremity edema. Feet are lukewarm. Psych: Mental Status: mental status grossly abnormal Objective Data Vital Signs Vital Signs: Vital Signs - 24 hr 03/16/20 16:00 03/16/20 16:47 03/16/20 16:54 Temperature Pulse Rate 112 H 113 H 114 H Respiratory Rate 26 H Blood Pressure 104/49 L Pulse Oximetry 95 94 03/16/20 16:55
[2020-03-17] MEDS: DOBUTamine 250 MG/D5W 250 ML 250 MG/250 ML BAG 13.3 MG IV CONT (15:25)
--- NOTE | 2020-03-17 17:07 | PM.IMPN ---
Progress Note: A&P Assessment and Plan (1) CAD (coronary artery disease): Qualifiers: Coronary Disease-Associated Artery/Lesion type: [place] artery [place] vs. transplanted heart: [place] heart Associated angina: without angina Qualified Code(s): I25.10 - Atherosclerotic heart disease of [place] coronary artery without angina pectoris Code(s): I25.10 - Atherosclerotic heart disease of [place] coronary artery without angina pectoris Status: Chronic (2) Shock: Code(s): R57.9 - Shock, unspecified Status: Acute (3) Fever: Qualifiers: Fever type: unspecified Qualified Code(s): R50.9 - Fever, unspecified Code(s): R50.9 - Fever, unspecified Status: Acute Assessment and Plan: Pt is on iv aztreonam (4) Acute respiratory failure: Qualifiers: Respiratory failure complication: unspecified whether with hypoxia or hypercapnia Qualified Code(s): J96.00 - Acute respiratory failure, unspecified whether with hypoxia or hypercapnia Code(s): J96.00 - Acute respiratory failure, unspecified whether with hypoxia or hypercapnia Status: Acute Assessment and Plan: Pt is currently intubated due to cardiogenic shock and is on dobutamine drip Difficult h eart cath due to large thrombus and clot burden Pt had impella which is now removed Cardiology and ICU atending are rounding (5) NSTEMI (non-ST elevated myocardial infarction): Code(s): I21.4 - Non-ST elevation (NSTEMI) myocardial infarction Status: Acute Assessment and Plan: Pt is sp heart cath and had impella device due to clot burden (6) Clostridium difficile infection: Code(s): A49.8 - Other bacterial infections of unspecified site Status: Acute Assessment and Plan: No diarrhea ? no cdiff (7) History of fall: Code(s): Z91.81 - History of falling Status: Acute (8) Altered mental status: Qualifiers: Altered mental status type: unspecified Qualified Code(s): R41.82 - Altered mental status, unspecified Code(s): R41.82 - Altered mental status, unspecified Status: Acute Assessment and Plan: history of dementia (9) Elevated troponin: Code(s): R79.89 - Other specified abnormal findings of blood chemistry Status: Acute (10) UTI (urinary tract infection): Qualifiers: Hematuria presence: without hematuria Urinary tract infection type: site unspecified Qualified Code(s): N39.0 - Urinary tract infection, site not specified Code(s): N39.0 - Urinary tract infection, site not specified Status: Acute Subjective Date/time seen: 03/17/20 17:07 Interval history: Pt transfered because of NSTEMI and respiratory distress, pulmonary edema. Pt intubated and had emergent heart cath now havig complications with impella and cold legs. Pt has significant cardiac history of TAVR, hypertension,CABG in 1999 with subsequent stents placement. Last catheterization February 08, [address] Keys and at that time the RAHMAN to LAD was patent Admitted this time with hematuria, UTI ? cdiff infection not true, Fall and history of dementia No diarrhea noted history difficult to elicit as pt is intubated in icu Pt had impella due to cardiogenic shock, impella removed Pt seen by ICU doctor and cardiology Pts heart rate is high Pt is on dobutamine for cardiogenic shock Review of Systems Review of Systems: ROS unobtainable: Yes unobtainable due to endotracheal tube Exam Narrative: Exam Narrative: Pt is intubated in icu Sp heart cath lungs clear legs soft with pulses Objective Data Vital Signs Vital Signs: Vital Signs - 24 hr 03/16/20 18:00 03/16/20 20:00 03/16/20 20:03 Temperature 37.1 C Pulse Rate 114 H 111 H 113 H Respiratory Rate 26 H 24 H Blood Pressure 102/43 L 107/50 L Pulse Oximetry 94 94 03/16/20 20:05 03/16/20 21:36 03/16/20 23:04 Temperature Pulse Rate 111
[2020-03-17] MEDS: FENOFIBRATE,MICRONIZED 48 MG TABLET PO (17:34)
[2020-03-17 17:54] LABS: Glucose Point of Care 90 (65-105)
[2020-03-17] MEDS: ROSUVASTATIN 10 MG TABLET 20 MG PO (20:38)
[2020-03-18] VITALS (36 sets, daily range): BP systolic 94–140; BP diastolic 46–61; PULSE 108–123; RESP 17–26; TEMP 35.9–36.9; O2SAT 94–99
[2020-03-18 00:31] LABS: Glucose Point of Care 107 (65-105)
[2020-03-18] MEDS: METOCLOPRAMIDE HCL INJ 10 MG/2 ML VIAL IV PUSH ×5 (00:37→23:19)
[2020-03-18] MEDS: NOREPINEPHRINE 8 MG/D5W 250 ML 8 MG/250 ML BAG 24.4 MG IV CONT ×2 (00:37→08:23)
[2020-03-18 03:39] LABS: Base Excess ABG -2.6 mEq/l (+/-2.0); Carboxyhemoglobin 0.2 % THb (0-2.0); Fractional Inspired Oxygen 45 %; HCO3 ABG 22.7 mEq/l (22.0-26.0); Methemoglobin ABG 0.6 %THb (0-1.5); Oxygen Content ABG 11.7 %vol (16.0-22.0); Oxygen Saturation ABG 95.4 % (95.0-100.0); Oxyhemoglobin 93.9 % THb (90.0-100.0); PCO2 ABG 41.1 mmHg (35.0-45.0); PO2 ABG 80.1 mmHg (80.0-100.0); PO2 FiO2 Ratio Arterial Blood 1.78 %; Reduced Hemoglobin 5.3 %THb (0-5.0); Total Hemoglobin 8.8 g/dL (12.0-18.0)
[2020-03-18 03:40] LABS: Device VENTILATOR; Modified Allen's Test Pass; Site Drawn RIGHT RADIAL
[2020-03-18 03:41] LABS: Arterial Blood Gas PEEP 10 cmH2O; Arterial Blood Gas Tidal Volume 450 ml; Arterial Blood Gas Vent Mode CMV; Arterial Blood Gas Ventilator rate 18 /MIN
[2020-03-18] MEDS: LEVOTHYROXINE SODIUM 25 MCG TABLET PO (05:14)
[2020-03-18] MEDS: AZTREONAM 1 GM in DEXTROSE 5% IN WATER 50 ML IVPB ×3 (05:15→21:46)
[2020-03-18 05:59] LABS: Hematocrit 25.8 % (42.0-52.0); Hemoglobin 7.9 g/dL (14.0-18.0); Mean Corpuscular HGB Conc 30.6 g/dl (32-36); Mean Corpuscular Hemoglobin 29.4 pg (26-34); Mean Corpuscular Volume 95.9 fl (80-100); Platelet Count Result 82 k/mm3 (150-375); Red Blood Count 2.69 M/mm3 (4.6-6.20); White Blood Count 14.1 K/mm3 (4.5-10.0)
[2020-03-18 06:12] LABS: Lactic Acid 1.8 mmol/L (0.7-2.1)
[2020-03-18 06:15] LABS: Alanine Aminotransferase 10 U/L (4-50); Albumin Level 2.3 g/dL (3.5-5.1); Alkaline Phosphatase 81 U/L (38-126); Aspartate Amino Transferase 24 U/L (17-59); Bilirubin,Total 0.7 mg/dL (0.2-1.3); Blood Urea Nitrogen 23 mg/dL (9-20); Calcium 10.8 mg/dL (8.4-10.2); Carbon Dioxide 25 mmol/L (22-30); Chloride 108 mmol/L (98-107); Estimated CRCL calculation 41 ml/min; Estimated Glomerular Filt Rate 45; Glucose 101 mg/dL (75-110); Magnesium 1.9 mg/dL (1.6-2.3); Potassium 3.2 mmol/L (3.4-5.0); Sodium 137 mmol/L (137-145)
[2020-03-18] MEDS: ASPIRIN 81 MG CHEWABLE TABLET PO (08:33)
[2020-03-18] MEDS: POTASSIUM CHLORIDE 20 MEQ PACKET (FOR LIQUID) 40 MEQ FEED TUBE (08:33)
[2020-03-18] MEDS: ALBUMIN HUMAN 25% 25 GM/100 ML 100 ML IVPB ×2 (08:33→20:04)
--- NOTE | 2020-03-18 08:34 | WPDINTPN ---
Progress Note: A&P Assessment and Plan (1) Acute respiratory failure: Qualifiers: Respiratory failure complication: unspecified whether with hypoxia or hypercapnia Qualified Code(s): J96.00 - Acute respiratory failure, unspecified whether with hypoxia or hypercapnia Code(s): J96.00 - Acute respiratory failure, unspecified whether with hypoxia or hypercapnia Status: Acute Assessment and Plan: Acute Respiratory failure secondary to Cardiogenic shock, pulmonary edema, possible pneumonia Continue full mechanical ventilation support to prevent hypoxemia/hypercarbia and end organ damage. ABG and PCXR reviewed, FiO2 45% peep of 10 Low tidal volume ventilation strategy to prevent volutrauma Continue Bronchodilators Fentanyl and Versed for sedation, maintain RASS of 0 to -2, daily sedation vacation, (2) Fever: Qualifiers: Fever type: unspecified Qualified Code(s): R50.9 - Fever, unspecified Code(s): R50.9 - Fever, unspecified Status: Acute Assessment and Plan: Fevers resolved. Likely could be related to UTI Urine culture growing coag-negative staph which was sensitive to vancomycin Continue vancomycin and aztreonam Blood cultures are negative Sputum cultures Yeast isolated (3) Shock: Code(s): R57.9 - Shock, unspecified Status: Acute Assessment and Plan: Most likely cardiogenic versus septic Impella was removed on 03/15 due to left lower extremity ischemia Continue Levophed, titrate to maintain mean pressures greater than 65 mmHg Patient was given IV fluids during cardiac catheterization Continue diuresing with albumin and Lasix (4) NSTEMI (non-ST elevated myocardial infarction): Code(s): I21.4 - Non-ST elevation (NSTEMI) myocardial infarction Status: Acute Assessment and Plan: Status post cardiac catheterization and PCI to left main coronary artery with Impella placement on 03/14/2020 -Impella was removed on 03/15/2020 due to left lower extremity ischemia Aspirin, Brilinta and Tricor Hold ARB and beta-adwoa due to shock (5) Ischemic cardiomyopathy: Code(s): I25.5 - Ischemic cardiomyopathy Status: Acute Assessment and Plan: Ischemic cardiomyopathy with EF of 35%, moderate mitral valve regurg -Levophed requirements increasing -patient was tried on dobutamine but had significant tachycardia so at dobutamine was discontinued, cardiology aware (6) CAD (coronary artery disease): Qualifiers: Coronary Disease-Associated Artery/Lesion type: [place] artery [place] vs. transplanted heart: [place] heart Associated angina: without angina Qualified Code(s): I25.10 - Atherosclerotic heart disease of [place] coronary artery without angina pectoris Code(s): I25.10 - Atherosclerotic heart disease of [place] coronary artery without angina pectoris Status: Chronic Assessment and Plan: Cardiology following the patient (7) UTI (urinary tract infection): Qualifiers: Hematuria presence: without hematuria Urinary tract infection type: site unspecified Qualified Code(s): N39.0 - Urinary tract infection, site not specified Code(s): N39.0 - Urinary tract infection, site not specified Status: Acute Assessment and Plan: Urine culture grows coag-negative staph Patient is on vancomycin (8) Aortic stenosis: Qualifiers: Cardiac valve disease etiology: nonrheumatic Qualified Code(s): I35.0 - Nonrheumatic aortic (valve) stenosis Code(s): I35.0 - Nonrheumatic aortic (valve) stenosis Status: Acute Assessment and Plan: Status post TAVR (9) Dietary counseling and surveillance: Code(s): Z71.3 - Dietary counseling and surveillance Status: Acute Assessment and Plan: Patient with tube feed increase tube feed residual, will hold tube feeds for now -started on Reglan -obtain obstructive series, will restart feeds gradually Stress
[2020-03-18] MEDS: POLYMYXIN/TRIMETHOPRIM OPHTH 10 ML DROPS 1 DROP EACH EYE ×2 (08:35→20:04)
[2020-03-18] MEDS: COLLAGENASE OINT 30 GM TUBE 1 APPLIC TOPICAL (08:36)
[2020-03-18] MEDS: TICAGRELOR 90 MG TABLET PO ×2 (08:37→20:06)
[2020-03-18] MEDS: allopurinoL 100 MG TABLET PO (08:37)
[2020-03-18] MEDS: PANTOPRAZOLE SODIUM IV 40 MG VIAL IV PUSH (08:37)
[2020-03-18] MEDS: FOLIC ACID 1 MG TABLET PO (08:38)
[2020-03-18] MEDS: FUROSEMIDE INJ 40 MG/4 ML VIAL 20 MG IV PUSH (10:18)
[2020-03-18] MEDS: DORNASE ALFA INH SOLN 1 MG/ML 2.5 ML AMP 2.5 MG INHALATION ×2 (10:38→19:34)
[2020-03-18] MEDS: polyethylene glycoL 3350 17 GM POWD.PACK PO (13:32)
--- NOTE | 2020-03-18 13:56 | PM.PNCARD ---
Progress Note: A&P Assessment and Plan (1) Ischemic cardiomyopathy: Code(s): I25.5 - Ischemic cardiomyopathy Status: Acute Assessment and Plan: EF was 35%. Had moderate mitral regurgitation by echo January 2020. (2) Cardiogenic shock: Code(s): R57.0 - Cardiogenic shock Status: Acute Assessment and Plan: CArdiogenic shock (+ some sepsis??)/CHF. Remains on Levophed More tachycardic than yesterday. Remains on Levophed, dose reduced a little. Dobutamine caused excessive tachycardia. Impella out 2nd ischemic LLE. Furosemide 20mg IVP BID started 03/17/2020 w/ modest results (but tolerated); will incr to 40 mg IVP BID. (3) Fever: Qualifiers: Fever type: unspecified Qualified Code(s): R50.9 - Fever, unspecified Code(s): R50.9 - Fever, unspecified Status: Acute Assessment and Plan: Started on antibiotics for UTI (4) NSTEMI (non-ST elevated myocardial infarction): Code(s): I21.4 - Non-ST elevation (NSTEMI) myocardial infarction Status: Acute Assessment and Plan: continue aspirin and Brilinta. left main stenting, angioplasty of the ostial Left anterior descending. Subjective Date/time seen: 03/18/20 13:56 Interval history: Follow-up for NSTEMI, status post JUDIT to left main and proximal Left anterior descending angioplasty on 03/14/2020: EF 35%, acute respiratory failure requiring intubation on 03/15/2020, CHF, shock on Levophed. Impella was removed on when his dorsalis pedis pulse was lost, with improvement. 03/17/2020: Patient remains intubated, 45% FiO2. Remains on Levophed which was increased from 8 mcg yesterday to 14 mcg/min. Sedated with fentanyl and Versed. Urine has been low,, with I's and O's on 03/16/2020 of 2300 in, 800 out. Patient is afebrile. Lactic acid 2.5 (5.0 on admission). Given 1 dose of Lasix yesterday because of severe edema and CHF. 1 unit of blood on Thursday. Telemetry shows sinus tachycardia. Lasix 20 mg IVP BID ordered. Date of service 03/18/2020: Pt remains intubated, on FiO2 45%. Remains on Levophed, reduced to 11 mcgs, and sedated. I's and O's = 2300/1500. CXR = no change in CHF+ pneumonia. Tele showed HR rising at times to the 120's. QRS complex looks a little wider. Review of Systems Review of Systems: Narrative: Obtained ROS from pt's nurse and chart. ROS unobtainable: Yes unobtainable due to endotracheal tube and unobtainable due to mental status Constitutional: Constitutional: Reports no additional constitutional complaints Eyes: Eyes: Reports no additional eye complaints ENT: Reports system reviewed and no additional complaints, except as documented (Intubated) Cardiovascular: Cardiovascular: Reports no additional cardiovascular complaints Respiratory: Respiratory: Reports no additional respiratory complaints Gastrointestinal: Gastrointestinal: Reports no additional gastrointestinal complaints Musculoskeletal: Musculoskeletal: Reports no additional musculoskeletal complaints Neurologic: Reports system reviewed and no additional complaints, except as documented and Reports confusion Psychiatric: Psychiatric: Reports confusion Exam Narrative: Exam Narrative: Ill-appearing older male, intubated, multiple lines and tubes, unresponsive, sedated. Const: General: comfortable, no acute distress, well developed and confusion Orientation/consciousness: confusion Other: intubated and sedated HENMT: General nose exam: no epistaxis Mouth: Yes moist mucous membranes Eyes: Sclera: sclerae normal and normal sclerae Neck: Neck: supple and no JVD Thyroid: thyroid normal Lymphatic: lymphadenopathy not noted Resp: Effort & Inspection: abnormal respiratory effort (Tachypneic) Auscultation: crackles, rales (LLL) and no wheezes Cardio: Ra
--- NOTE | 2020-03-18 14:14 | WPDPROCEDUR ---
Procedures Intubation Intubation Date: 03/18/20 Intubation Time: 13:11 A pre-procedural Time-Out was completed immediately before starting the procedure and confirmed: Patient Identification, Site, Procedure, Patient Position and the Availability of Requisite Equipment: Yes Sedative: none Laryngoscope: fiber optic video scope ET tube size: 8 Tube secured depth (cm): 26 Tube secured location: lips Tube placement confirmation: visualized tube passing through cords Patient tolerated procedure: well Intubation complications: none Additional comments: RT was having difficulty with suctioning through the current ETT, patient was getting enough tidal volumes, saturations were adequate. Thought process was possible kink in the ETT, I decided to change the tube overlying ET tube exchanger. The new ETT would not advance over the a tube exchanger, I decided to use the glide scope to intubate the patient. Patient was preoxygenated with back mask ventilation for minimum of 3 minutes, O2 sats were above 92% once we started bagging. Continues cardiac as well as pulse oximetry monitoring was obtained during the procedure. A glide scope blade 3 was used to directly visualize the vocal cords. A size 8 ET tube was visualized advancing between the cords to a level of 26 cm at the lips. The stylet was then removed. Tube placement was also noted by fogging in the tube, equal and bilateral breath sounds, no sounds over the epigastrium, and end-tidal colorimetric monitoring. The cuff was then inflated with 10 ml of air and the tube secured using a commercially available device. A good pulse oximetry wave form was seen on the monitor throughout the procedure. Patient was then connected to the ventilator with previous vent settings. Patient remained on fentanyl and Versed infusion throughout the intubation process. Chest x-ray has been ordered for placement of the new ETT. Patient tolerated the procedure well Discussed with patient's sister, Sis, who is the POA.
[2020-03-18 14:22] LABS: Glucose Point of Care 77 (65-105)
--- NOTE | 2020-03-18 17:04 | PM.IMPN ---
Progress Note: A&P Assessment and Plan (1) Acute respiratory failure: Qualifiers: Respiratory failure complication: unspecified whether with hypoxia or hypercapnia Qualified Code(s): J96.00 - Acute respiratory failure, unspecified whether with hypoxia or hypercapnia Code(s): J96.00 - Acute respiratory failure, unspecified whether with hypoxia or hypercapnia Status: Acute Assessment and Plan: Pt is currently intubated due to cardiogenic shock Pt had impella which is now removed Cardiology and ICU atending are following (2) Shock: Code(s): R57.9 - Shock, unspecified Status: Acute Assessment and Plan: Cardiogenic shock on levophed (3) CAD (coronary artery disease): Qualifiers: Coronary Disease-Associated Artery/Lesion type: [place] artery [place] vs. transplanted heart: [place] heart Associated angina: without angina Qualified Code(s): I25.10 - Atherosclerotic heart disease of [place] coronary artery without angina pectoris Code(s): I25.10 - Atherosclerotic heart disease of [place] coronary artery without angina pectoris Status: Chronic Assessment and Plan: Status post cath and PCI to the left main artery with impella placement. On ASA , brilinta and tricor. Impella was removed. (4) NSTEMI (non-ST elevated myocardial infarction): Code(s): I21.4 - Non-ST elevation (NSTEMI) myocardial infarction Status: Acute Assessment and Plan: Pt is sp heart cath and had impella device (5) Elevated troponin: Code(s): R79.89 - Other specified abnormal findings of blood chemistry Status: Acute (6) Altered mental status: Qualifiers: Altered mental status type: unspecified Qualified Code(s): R41.82 - Altered mental status, unspecified Code(s): R41.82 - Altered mental status, unspecified Status: Acute (7) UTI (urinary tract infection): Qualifiers: Hematuria presence: without hematuria Urinary tract infection type: site unspecified Qualified Code(s): N39.0 - Urinary tract infection, site not specified Code(s): N39.0 - Urinary tract infection, site not specified Status: Acute (8) Fever: Qualifiers: Fever type: unspecified Qualified Code(s): R50.9 - Fever, unspecified Code(s): R50.9 - Fever, unspecified Status: Acute Assessment and Plan: Resolved Subjective Date/time seen: 03/18/20 17:04 Interval history: Follow-up for NSTEMI, status post JUDIT to left main and proximal Left anterior descending angioplasty on 03/14/2020: EF 35%, acute respiratory failure requiring intubation on 03/15/2020, CHF, shock on Levophed. Impella was removed on when his dorsalis pedis pulse was lost, with improvement. 03/17/2020: Patient remains intubated, 45% FiO2. Remains on Levophed which was increased from 8 mcg yesterday to 14 mcg/min. Sedated with fentanyl and Versed. Urine has been low,, with I's and O's on 03/16/2020 of 2300 in, 800 out. Patient is afebrile. Lactic acid 2.5 (5.0 on admission). Given 1 dose of Lasix yesterday because of severe edema and CHF. 1 unit of blood on Thursday. Telemetry shows sinus tachycardia. Lasix 20 mg IVP BID ordered. Date of service 03/18/2020: Pt remains intubated, on FiO2 45%. Remains on Levophed. Review of Systems Review of Systems: ROS unobtainable: Yes unobtainable due to endotracheal tube Exam Resp: Auscultation: rales and diminished lung sounds Cardio: Rate: regular rate and tachycardic Rhythm: regular rhythm GI: Auscultation: normal bowel sounds Urinary Catheter: Urinary Catheter: patent and draining and urine clear Neuro: Other: Intubated and sedated Extrem: General: edema and pedal edema Objective Data Vital Signs Vital Signs: Vital Signs - 24 hr 03/17/20 17:51 03/17/20 17:52 03/17/20 17:53 Temperature Pulse Rate 119 H 119 H 119 H Respiratory Rate 22 H 22 H Blood Pressure 1
[2020-03-18] MEDS: FUROSEMIDE INJ 40 MG/4 ML VIAL IV PUSH (17:55)
[2020-03-18] MEDS: FENOFIBRATE,MICRONIZED 48 MG TABLET PO (17:55)
[2020-03-18] MEDS: NOREPINEPHRINE 8 MG/D5W 250 ML 8 MG/250 ML BAG 28.1 MG IV CONT (17:59)
[2020-03-18 18:19] LABS: Glucose Point of Care 91 (65-105)
[2020-03-18] MEDS: ROSUVASTATIN 10 MG TABLET 20 MG PO (20:05)
[2020-03-18 23:32] LABS: Glucose Point of Care 119 (65-105)
[2020-03-19] VITALS (49 sets, daily range): BP systolic 85–121; BP diastolic 39–64; PULSE 93–119; RESP 17–32; TEMP 35.7–36.9; O2SAT 91–98
[2020-03-19] MEDS: NOREPINEPHRINE 8 MG/D5W 250 ML 8 MG/250 ML BAG 26.3 MG IV CONT ×2 (02:03→12:20)
[2020-03-19 04:09] LABS: Alveolar/Arterial O2 Gradient 201.3 mmHg; Base Excess ABG -0.3 mEq/l (+/-2.0); Carboxyhemoglobin 0.3 % THb (0-2.0); Fractional Inspired Oxygen 45 %; HCO3 ABG 25.1 mEq/l (22.0-26.0); Methemoglobin ABG 0.5 %THb (0-1.5); Modified Allen's Test Pass; Oxygen Content ABG 11.9 %vol (16.0-22.0); Oxygen Saturation ABG 93.2 % (95.0-100.0); Oxyhemoglobin 92.5 % THb (90.0-100.0); PCO2 ABG 44.7 mmHg (35.0-45.0); PO2 ABG 68.7 mmHg (80.0-100.0); PO2 FiO2 Ratio Arterial Blood 1.53 %; Reduced Hemoglobin 6.7 %THb (0-5.0); Site Drawn LEFT RADIAL; Total Hemoglobin 9.1 g/dL (12.0-18.0); pH ABG 7.367 (7.350-7.450)
[2020-03-19 04:10] LABS: Arterial Blood Gas PEEP 10 cmH2O; Arterial Blood Gas Tidal Volume 450 ml; Arterial Blood Gas Vent Mode CMV; Arterial Blood Gas Ventilator rate 18 /MIN; Device VENTILATOR
[2020-03-19 04:14] LABS: Hematocrit 26.1 % (42.0-52.0); Hemoglobin 8.1 g/dL (14.0-18.0); Mean Corpuscular Hemoglobin 29.7 pg (26-34); Mean Corpuscular Volume 95.6 fl (80-100); Mean Platelet Volume 10.4 fl (7.4-10.4); Platelet Count Result 77 k/mm3 (150-375); Red Blood Count 2.73 M/mm3 (4.6-6.20); Red Cell Distribution Width 18.7 % (11.5-14.5)
[2020-03-19 04:36] LABS: Alanine Aminotransferase 10 U/L (4-50); Albumin Level 2.5 g/dL (3.5-5.1); Alkaline Phosphatase 91 U/L (38-126); Aspartate Amino Transferase 25 U/L (17-59); Bilirubin,Total 1.1 mg/dL (0.2-1.3); Blood Urea Nitrogen 22 mg/dL (9-20); Carbon Dioxide 28 mmol/L (22-30); Chloride 105 mmol/L (98-107); Estimated CRCL calculation 38 ml/min; Estimated Glomerular Filt Rate 42; Glucose 111 mg/dL (75-110); Magnesium 1.8 mg/dL (1.6-2.3); Potassium 3.3 mmol/L (3.4-5.0); Sodium 137 mmol/L (137-145)
[2020-03-19] MEDS: AZTREONAM 1 GM in DEXTROSE 5% IN WATER 50 ML IVPB ×3 (05:15→21:31)
[2020-03-19] MEDS: METOCLOPRAMIDE HCL INJ 10 MG/2 ML VIAL IV PUSH ×3 (05:16→17:39)
[2020-03-19] MEDS: LEVOTHYROXINE SODIUM 25 MCG TABLET PO (05:16)
--- NOTE | 2020-03-19 06:22 | CONS_ITS ---
DATE OF CONSULTATION: 03/16/2020 REASON FOR CONSULTATION: Positive C. diff assay. HISTORY OF PRESENT ILLNESS: The patient is a 79-year-old male who cannot provide any history as he is intubated and sedated. He was admitted to the hospital on March 11, with altered mental status, cough, and coccygeal pain. For unknown reasons, a C. diff assay was submitted to the lab and was positive. Consultation then requested. His hospital course has been complicated by acute NC requiring cardiac cath and PCI also cardiogenic shock, fever. He has been started on vancomycin and aztreonam for the fever, suspected due to UTI. No other antibiotics nor any received in his detention. FAMILY HISTORY: Not pertinent to his present illness. CURRENT MEDICATIONS: No immunosuppressants. ALLERGIES: PENICILLIN CAUSES A RASH. HABITS: No tobacco. No alcohol. PAST MEDICAL HISTORY: Nonischemic cardiomyopathy, prior TAVR, also joint replacements, and multiple other chronic medical illnesses as outlined. None pertinent to his present illness directly. REVIEW OF SYSTEMS: 14-point review attempted, not obtainable from the patient due to intubated status. SOCIAL HISTORY: No family at the bedside. PHYSICAL EXAMINATION: GENERAL: This is an elderly male who appears older than his actual age, on the ventilator. VITAL SIGNS: His temperature on hospital day #5, was up to 38.4 core temperature, currently afebrile x24 hours, 102/46, 27, 107. SKIN: Multiple areas of chronic ecchymosis. No rashes. ENT: The conjunctivae are normal. He is orally intubated, which obstructs oral exam. NECK: No apparent meningismus. LUNGS: Clear to auscultation. CARDIAC: Tachycardic, regular, no murmurs. ABDOMEN: Hypoactive bowel sounds. No tenderness, masses, distention, and not tympanitic. EXTREMITIES: 2+ edema. LABORATORY DATA: His C. diff PCR was positive as was his AB toxin. White count 14.6, hemoglobin 6.9, not transfused up to 8.3, platelets are 90,000. His prothrombin time is 1.7. Blood gases are reviewed on the noted ventilator settings. Chemistry panel normal except for high chloride. RADIOLOGY DATA: Abdomen x-ray on 03/14, nonspecific bowel gas pattern. ASSESSMENT: 1. False positive Clostridium difficile assay without diarrhea. It is possible that the reported specimen may not have been from this patient. He has not had any diarrhea since admission. 2. Abnormal urinalysis, possible urinary tract infection. 3. Acute myocardial infarction. RECOMMENDATIONS: 1. As long as no diarrhea, no treatment nor further evaluation needed regarding the positive assay. 2. No isolation needed. 3. Antibiotics can be continued at your discretion. Thank you very much for asking me see him. Please call if questions arise. ROLY CEJA M.D. RETAIL SHIFT MANAGER RETAIL SHIFT MANAGER D I MT: Hannah
[2020-03-19] MEDS: DORNASE ALFA INH SOLN 1 MG/ML 2.5 ML AMP 2.5 MG INHALATION ×2 (08:13→20:29)
[2020-03-19] MEDS: COLLAGENASE OINT 30 GM TUBE 1 APPLIC TOPICAL (08:17)
[2020-03-19] MEDS: TICAGRELOR 90 MG TABLET PO ×2 (08:17→20:18)
[2020-03-19] MEDS: POLYMYXIN/TRIMETHOPRIM OPHTH 10 ML DROPS 1 DROP EACH EYE ×2 (08:17→20:19)
[2020-03-19] MEDS: polyethylene glycoL 3350 17 GM POWD.PACK PO (08:17)
[2020-03-19] MEDS: PANTOPRAZOLE SODIUM IV 40 MG VIAL IV PUSH (08:17)
[2020-03-19] MEDS: FOLIC ACID 1 MG TABLET PO (08:17)
[2020-03-19] MEDS: allopurinoL 100 MG TABLET PO (08:18)
[2020-03-19] MEDS: FUROSEMIDE INJ 40 MG/4 ML VIAL IV PUSH ×2 (08:18→17:06)
--- NOTE | 2020-03-19 08:25 | PM.PNCARD ---
Progress Note: A&P Assessment and Plan (1) Ischemic cardiomyopathy: Code(s): I25.5 - Ischemic cardiomyopathy Status: Acute Assessment and Plan: EF was 35%. Had moderate mitral regurgitation by echo January 2020. (2) Cardiogenic shock: Code(s): R57.0 - Cardiogenic shock Status: Acute Assessment and Plan: CArdiogenic shock (+ some sepsis??)/CHF. Remains on Levophed Remains tachycardic. Remains on Levophed, 14 mics Impella out 2nd ischemic LLE. Lasix was increased yesterday from 20 mg IV b.i.d. to 40 mg IV b.i.d.. (3) Fever: Qualifiers: Fever type: unspecified Qualified Code(s): R50.9 - Fever, unspecified Code(s): R50.9 - Fever, unspecified Status: Acute Assessment and Plan: Started on antibiotics for UTI (4) NSTEMI (non-ST elevated myocardial infarction): Code(s): I21.4 - Non-ST elevation (NSTEMI) myocardial infarction Status: Acute Assessment and Plan: continue aspirin and Brilinta. left main stenting, angioplasty of the ostial Left anterior descending. Additional Plan NSTEMI s/p PCI to left main and LAC, Cardiogenic shock and pulm edema, s/p impella insertion, now with left leg ischemia likely related to combination of impella, peripheral vasoconstriction and underlying PVD, ACT 153, plan impella removed and manual pressure applied for 30 min, at end there was no hematoma and Doppler flow restored in lef t DP artery. cont on DAPT, wean vasopressors as tolerated.. Subjective Date/time seen: 03/19/20 08:25 Interval history: Follow-up for NSTEMI, status post JUDIT to left main and proximal Left anterior descending angioplasty on 03/14/2020: EF 35%, acute respiratory failure requiring intubation on 03/15/2020, CHF, shock on Levophed. Impella was removed on when his dorsalis pedis pulse was lost, with improvement. 03/17/2020: Patient remains intubated, 45% FiO2. Remains on Levophed which was increased from 8 mcg yesterday to 14 mcg/min. Sedated with fentanyl and Versed. Urine has been low,, with I's and O's on 03/16/2020 of 2300 in, 800 out. Patient is afebrile. Lactic acid 2.5 (5.0 on admission). Given 1 dose of Lasix yesterday because of severe edema and CHF. 1 unit of blood on Thursday. Telemetry shows sinus tachycardia. Lasix 20 mg IVP BID ordered. Date of service 03/18/2020: Pt remains intubated, on FiO2 45%. Remains on Levophed. date of service 03/19/2020: on Levophed 14 mics . making good amount of urine. remains tachycardic between 110-120 beats per minute. sedated. sedation is being weaned down today to see if he will be responsive. Review of Systems Review of Systems: ROS unobtainable: Yes unobtainable due to endotracheal tube and unobtainable due to mental status Constitutional: Constitutional: Reports no additional constitutional complaints Eyes: Eyes: Reports no additional eye complaints ENT: Reports system reviewed and no additional complaints, except as documented (Intubated) Cardiovascular: Cardiovascular: Reports no additional cardiovascular complaints Respiratory: Respiratory: Reports no additional respiratory complaints Gastrointestinal: Gastrointestinal: Reports no additional gastrointestinal complaints Musculoskeletal: Musculoskeletal: Reports no additional musculoskeletal complaints Neurologic: Reports system reviewed and no additional complaints, except as documented and Reports confusion Psychiatric: Psychiatric: Reports confusion Exam Narrative: Exam Narrative: Ill-appearing older male, intubated, multiple lines and tubes, unresponsive, sedated. Const: General: comfortable, no acute distress, well developed and confusion Orientation/consciousness: confusion Other: intubated and sedated HENMT: General nose exam:
[2020-03-19] MEDS: ASPIRIN 81 MG CHEWABLE TABLET PO (08:31)
[2020-03-19] MEDS: POTASSIUM CHLORIDE 20 MEQ PACKET (FOR LIQUID) 40 MEQ PO (10:03)
--- NOTE | 2020-03-19 10:52 | WPDINTPN ---
Progress Note: A&P Assessment and Plan (1) Acute respiratory failure: Qualifiers: Respiratory failure complication: unspecified whether with hypoxia or hypercapnia Qualified Code(s): J96.00 - Acute respiratory failure, unspecified whether with hypoxia or hypercapnia Code(s): J96.00 - Acute respiratory failure, unspecified whether with hypoxia or hypercapnia Status: Acute Assessment and Plan: Acute Respiratory failure secondary to Cardiogenic shock, pulmonary edema, possible pneumonia Continue full mechanical ventilation support to prevent hypoxemia/hypercarbia and end organ damage. ABG and PCXR reviewed, FiO2 45% peep of 10 Low tidal volume ventilation strategy to prevent volutrauma Continue Bronchodilators Fentanyl and Versed for sedation, maintain RASS of 0 to -2, daily sedation vacation, -03/18/2020: ETT was changed at his as it was difficult to pass the suction catheter, the will ETT was kinked. A new ET tube was inserted a glide scope, -cardiology increased diuretic dose (2) Fever: Qualifiers: Fever type: unspecified Qualified Code(s): R50.9 - Fever, unspecified Code(s): R50.9 - Fever, unspecified Status: Acute Assessment and Plan: Fevers resolved. Likely could be related to UTI Urine culture growing coag-negative staph which was sensitive to vancomycin Continue vancomycin and aztreonam Blood cultures are negative Sputum cultures Yeast isolated (3) Shock: Code(s): R57.9 - Shock, unspecified Status: Acute Assessment and Plan: Most likely cardiogenic versus septic Impella was removed on 03/15 due to left lower extremity ischemia Continue Levophed, titrate to maintain mean pressures greater than 65 mmHg Patient was given IV fluids during cardiac catheterization Continue diuresing with Lasix (4) NSTEMI (non-ST elevated myocardial infarction): Code(s): I21.4 - Non-ST elevation (NSTEMI) myocardial infarction Status: Acute Assessment and Plan: Status post cardiac catheterization and PCI to left main coronary artery with Impella placement on 03/14/2020 -Impella was removed on 03/15/2020 due to left lower extremity ischemia Aspirin, Brilinta and Tricor Hold ARB and beta-adwoa due to shock (5) Ischemic cardiomyopathy: Code(s): I25.5 - Ischemic cardiomyopathy Status: Acute Assessment and Plan: Ischemic cardiomyopathy with EF of 35%, moderate mitral valve regurg -Levophed requirements increasing -patient was tried on dobutamine but had significant tachycardia so at dobutamine was discontinued, cardiology aware (6) CAD (coronary artery disease): Qualifiers: Associated angina: without angina Coronary Disease-Associated Artery/Lesion type: [place] artery [place] vs. transplanted heart: [place] heart Qualified Code(s): I25.10 - Atherosclerotic heart disease of [place] coronary artery without angina pectoris Code(s): I25.10 - Atherosclerotic heart disease of [place] coronary artery without angina pectoris Status: Chronic Assessment and Plan: Cardiology following the patient (7) UTI (urinary tract infection): Qualifiers: Hematuria presence: without hematuria Urinary tract infection type: site unspecified Qualified Code(s): N39.0 - Urinary tract infection, site not specified Code(s): N39.0 - Urinary tract infection, site not specified Status: Acute Assessment and Plan: Urine culture grows coag-negative staph Patient is on vancomycin (8) Aortic stenosis: Qualifiers: Cardiac valve disease etiology: nonrheumatic Qualified Code(s): I35.0 - Nonrheumatic aortic (valve) stenosis Code(s): I35.0 - Nonrheumatic aortic (valve) stenosis Status: Acute Assessment and Plan: Status post TAVR (9) Dietary counseling and surveillance: Code(s): Z71.3 - Dietary counseling and surveillance Status: Acute Assessment
--- NOTE | 2020-03-19 11:30 | PCDIET ---
ICU Rounding Note: Tube feedings held for residuals up to 950mL over the weekend but have since resumed and are currently at 20mL/hr. Last recorded weight is 93.8kg which is increased from last review. Bowel Motility: No BM, per nursing. Patient on Miralax and Reglan with improved bowel sounds, per nursing. Labs Reviewed: Hgb (8.1), Hct (26.1), BUN (22), Cr (1.6), K (3.3), Alb (2.5), Ca (11.0) Meds Noted: Aztreonam, Lasix, Reglan, Versed, KCl, Vancomycin, Fentanyl, Folic Acid, Novolog, Levophed, Protonix, Miralax Additional Notes: Coccyx wound reported. Following daily in ICU rounds. Assessing/reassessing every Thursday/Thursday.
[2020-03-19 11:58] LABS: Glucose Point of Care 102 (65-105)
[2020-03-19] MEDS: LEVALBUTEROL NEB 1.25 MG/3 ML 0.63 MG INHALATION ×2 (14:25→20:28)
[2020-03-19] MEDS: IPRATROPIUM BR 0.02% INH SOLN 0.5 MG/2.5 ML VIAL INHALATION ×2 (14:26→20:28)
[2020-03-19 16:33] LABS: Glucose Point of Care 103 (65-105)
--- NOTE | 2020-03-19 17:15 | PM.IMPN ---
Progress Note: A&P Assessment and Plan (1) Acute respiratory failure: Qualifiers: Respiratory failure complication: unspecified whether with hypoxia or hypercapnia Qualified Code(s): J96.00 - Acute respiratory failure, unspecified whether with hypoxia or hypercapnia Code(s): J96.00 - Acute respiratory failure, unspecified whether with hypoxia or hypercapnia Status: Acute Assessment and Plan: Pt is currently intubated due to cardiogenic shock Pt had impella which is now removed Cardiology and ICU atending are following (2) Shock: Code(s): R57.9 - Shock, unspecified Status: Acute Assessment and Plan: Cardiogenic shock he was switch to phenylephrine due to tachycardia. (3) CAD (coronary artery disease): Qualifiers: Coronary Disease-Associated Artery/Lesion type: [place] artery [place] vs. transplanted heart: [place] heart Associated angina: without angina Qualified Code(s): I25.10 - Atherosclerotic heart disease of [place] coronary artery without angina pectoris Code(s): I25.10 - Atherosclerotic heart disease of [place] coronary artery without angina pectoris Status: Chronic Assessment and Plan: Status post cath and PCI to the left main artery with impella placement. On ASA , brilinta and tricor. Impella was removed. (4) NSTEMI (non-ST elevated myocardial infarction): Code(s): I21.4 - Non-ST elevation (NSTEMI) myocardial infarction Status: Acute Assessment and Plan: Pt is sp heart cath and had impella device (5) Elevated troponin: Code(s): R79.89 - Other specified abnormal findings of blood chemistry Status: Acute (6) Altered mental status: Qualifiers: Altered mental status type: unspecified Qualified Code(s): R41.82 - Altered mental status, unspecified Code(s): R41.82 - Altered mental status, unspecified Status: Acute (7) UTI (urinary tract infection): Qualifiers: Hematuria presence: without hematuria Urinary tract infection type: site unspecified Qualified Code(s): N39.0 - Urinary tract infection, site not specified Code(s): N39.0 - Urinary tract infection, site not specified Status: Acute (8) Fever: Qualifiers: Fever type: unspecified Qualified Code(s): R50.9 - Fever, unspecified Code(s): R50.9 - Fever, unspecified Status: Acute Assessment and Plan: Resolved Additional Plan C. diff testing was performed in the ED and is pending. The patient denies diarrhea. Will begin polymyxin trimethoprim drops for conjunctivitis. Subjective Date/time seen: Remains intubated and sedated. 03/19/20 17:16 Review of Systems Review of Systems: ROS unobtainable: Yes unobtainable due to endotracheal tube Exam Const: Other: Intubated and sedated. Neck: Neck: supple Resp: Auscultation: rales Cardio: Rate: regular rate and tachycardic Rhythm: regular rhythm GI: Auscultation: normal bowel sounds Extrem: General: edema Right upper extremity: edema Left upper extremity: edema Other: Has anasarca. Objective Data Vital Signs Vital Signs: Vital Signs - 24 hr 03/18/20 17:59 03/18/20 18:00 03/18/20 18:33 Temperature Pulse Rate 116 H 113 H 113 H Respiratory Rate 18 18 Blood Pressure 119/47 L 123/50 L Pulse Oximetry 97 03/18/20 18:35 03/18/20 19:34 03/18/20 19:36 Temperature Pulse Rate 113 H 112 H 110 H Respiratory Rate 18 18 Blood Pressure Pulse Oximetry 98 03/18/20 19:44 03/18/20 20:00 03/18/20 22:00 Temperature 97.1 F L Pulse Rate 112 H 112 H 110 H Respiratory Rate 18 17 17 Blood Pressure 129/59 L 134/54 L Pulse Oximetry 97 97 03/18/20 22:26 03/18/20 23:24 03/18/20 23:58 Temperature 97.3 F L Pulse Rate 113 H 111 H 110 H Respiratory Rate 18 Blood Pressure 140/55 L 102/46 L Pulse Oximetry 95 94 03/19/20 00:00 03/19/20 02:00 03/19/20 02:03 Temperature Pul
[2020-03-19 17:56] LABS: Vancomycin Trough 22.4 ug/mL (10.0-20.0)
[2020-03-19] MEDS: ROSUVASTATIN 10 MG TABLET 20 MG PO (20:19)
[2020-03-20] VITALS (17 sets, daily range): BP systolic 91–105; BP diastolic 48–54; PULSE 100–110; RESP 20–26; TEMP 36.4–36.5; O2SAT 92–97
[2020-03-20 00:13] LABS: Glucose Point of Care 120 (65-105)
[2020-03-20] MEDS: METOCLOPRAMIDE HCL INJ 10 MG/2 ML VIAL IV PUSH ×2 (00:15→05:52)
[2020-03-20] MEDS: LEVALBUTEROL NEB 1.25 MG/3 ML 0.63 MG INHALATION ×2 (02:19→07:50)
[2020-03-20] MEDS: IPRATROPIUM BR 0.02% INH SOLN 0.5 MG/2.5 ML VIAL INHALATION ×2 (02:19→07:50)
[2020-03-20 04:30] LABS: Alveolar/Arterial O2 Gradient 234.2 mmHg; Base Excess ABG -5.5 mEq/l (+/-2.0); Carboxyhemoglobin 0.3 % THb (0-2.0); Fractional Inspired Oxygen 50 %; HCO3 ABG 20.5 mEq/l (22.0-26.0); Methemoglobin ABG 0.6 %THb (0-1.5); Oxygen Content ABG 12.4 %vol (16.0-22.0); Oxygen Saturation ABG 93.8 % (95.0-100.0); Oxyhemoglobin 92.9 % THb (90.0-100.0); PO2 ABG 75.1 mmHg (80.0-100.0); Reduced Hemoglobin 6.2 %THb (0-5.0); Total Hemoglobin 9.4 g/dL (12.0-18.0); pH ABG 7.306 (7.350-7.450)
[2020-03-20 04:31] LABS: Modified Allen's Test Pass; Site Drawn LEFT RADIAL
[2020-03-20 04:32] LABS: Arterial Blood Gas PEEP 10 cmH2O; Arterial Blood Gas Tidal Volume 450 ml; Arterial Blood Gas Vent Mode CMV; Arterial Blood Gas Ventilator rate 18 /MIN; Device VENTILATOR
[2020-03-20] MEDS: AZTREONAM 1 GM in DEXTROSE 5% IN WATER 50 ML IVPB (05:51)
[2020-03-20 06:23] LABS: Hematocrit 27.8 % (42.0-52.0); Hemoglobin 8.4 g/dL (14.0-18.0); Mean Corpuscular HGB Conc 30.2 g/dl (32-36); Mean Corpuscular Hemoglobin 29.5 pg (26-34); Mean Corpuscular Volume 97.5 fl (80-100); Mean Platelet Volume 11.2 fl (7.4-10.4); Platelet Count Result 100 k/mm3 (150-375); Red Blood Count 2.85 M/mm3 (4.6-6.20); Red Cell Distribution Width 18.8 % (11.5-14.5); White Blood Count 16.1 K/mm3 (4.5-10.0)
[2020-03-20 06:26] LABS: Glucose Point of Care 107 (65-105)
[2020-03-20 06:39] LABS: Alanine Aminotransferase 12 U/L (4-50); Albumin Level 2.3 g/dL (3.5-5.1); Alkaline Phosphatase 94 U/L (38-126); Aspartate Amino Transferase 33 U/L (17-59); Bilirubin,Total 0.8 mg/dL (0.2-1.3); Blood Urea Nitrogen 28 mg/dL (9-20); Calcium 11.1 mg/dL (8.4-10.2); Carbon Dioxide 21 mmol/L (22-30); Chloride 104 mmol/L (98-107); Estimated CRCL calculation 31 ml/min; Estimated Glomerular Filt Rate 33; Glucose 110 mg/dL (75-110); Magnesium 1.8 mg/dL (1.6-2.3); Potassium 4.8 mmol/L (3.4-5.0); Sodium 134 mmol/L (137-145)
[2020-03-20] MEDS: LEVOTHYROXINE SODIUM 25 MCG TABLET PO (06:42)
[2020-03-20] MEDS: DORNASE ALFA INH SOLN 1 MG/ML 2.5 ML AMP 2.5 MG INHALATION (07:50)
[2020-03-20] MEDS: PANTOPRAZOLE SODIUM IV 40 MG VIAL IV PUSH (08:03)
[2020-03-20] MEDS: POLYMYXIN/TRIMETHOPRIM OPHTH 10 ML DROPS 1 DROP EACH EYE (08:04)
[2020-03-20] MEDS: COLLAGENASE OINT 30 GM TUBE 1 APPLIC TOPICAL (08:04)
--- NOTE | 2020-03-20 08:39 | WPDINTPN ---
Progress Note: A&P Assessment and Plan (1) Acute respiratory failure: Qualifiers: Respiratory failure complication: unspecified whether with hypoxia or hypercapnia Qualified Code(s): J96.00 - Acute respiratory failure, unspecified whether with hypoxia or hypercapnia Code(s): J96.00 - Acute respiratory failure, unspecified whether with hypoxia or hypercapnia Status: Acute Assessment and Plan: Acute Respiratory failure secondary to Cardiogenic shock, pulmonary edema, possible pneumonia Continue full mechanical ventilation support to prevent hypoxemia/hypercarbia and end organ damage. ABG and PCXR reviewed, FiO2 50% peep of 10 Low tidal volume ventilation strategy to prevent volutrauma Continue Bronchodilators Fentanyl and Versed for sedation, maintain RASS of 0 to -2, daily sedation vacation, -03/18/2020: ETT was changed at his as it was difficult to pass the suction catheter, the will ETT was kinked. A new ET tube was inserted a glide scope, -low urine output overnight despite increasing her diuretic dose -patient is not weanable at this time (2) Fever: Qualifiers: Fever type: unspecified Qualified Code(s): R50.9 - Fever, unspecified Code(s): R50.9 - Fever, unspecified Status: Acute Assessment and Plan: Fevers resolved. Likely could be related to UTI Urine culture growing coag-negative staph which was sensitive to vancomycin Continue vancomycin and aztreonam Blood cultures are negative Sputum cultures Yeast isolated (3) Shock: Code(s): R57.9 - Shock, unspecified Status: Acute Assessment and Plan: Most likely cardiogenic versus septic Impella was removed on 03/15 due to left lower extremity ischemia Levophed was switched to Vin-Synephrine as patient was tachycardic, continue Vin-Synephrine and titrate to maintain mean pressures greater than 65 mmHg Patient was given IV fluids during cardiac catheterization Continue diuresing with Lasix (4) NSTEMI (non-ST elevated myocardial infarction): Code(s): I21.4 - Non-ST elevation (NSTEMI) myocardial infarction Status: Acute Assessment and Plan: Status post cardiac catheterization and PCI to left main coronary artery with Impella placement on 03/14/2020 -Impella was removed on 03/15/2020 due to left lower extremity ischemia Aspirin, Brilinta and Tricor Hold ARB and beta-adwoa due to shock (5) Ischemic cardiomyopathy: Code(s): I25.5 - Ischemic cardiomyopathy Status: Acute Assessment and Plan: Ischemic cardiomyopathy with EF of 35%, moderate mitral valve regurg -Levophed requirements increasing -patient was tried on dobutamine but had significant tachycardia so at dobutamine was discontinued, cardiology aware (6) CAD (coronary artery disease): Qualifiers: Coronary Disease-Associated Artery/Lesion type: [place] artery [place] vs. transplanted heart: [place] heart Associated angina: without angina Qualified Code(s): I25.10 - Atherosclerotic heart disease of [place] coronary artery without angina pectoris Code(s): I25.10 - Atherosclerotic heart disease of [place] coronary artery without angina pectoris Status: Chronic Assessment and Plan: Cardiology following the patient (7) UTI (urinary tract infection): Qualifiers: Hematuria presence: without hematuria Urinary tract infection type: site unspecified Qualified Code(s): N39.0 - Urinary tract infection, site not specified Code(s): N39.0 - Urinary tract infection, site not specified Status: Acute Assessment and Plan: Urine culture grows coag-negative staph Patient is on vancomycin (8) Aortic stenosis: Qualifiers: Cardiac valve disease etiology: nonrheumatic Qualified Code(s): I35.0 - Nonrheumatic aortic (valve) stenosis Code(s): I35.0 - Nonrheumatic aortic (valve) stenosis Status: Acute Assessment and Plan: Status post TAV
--- NOTE | 2020-03-20 10:55 | PCDIET ---
Nutrition Follow-Up Complete: Nutrition Diagnosis: Increased protein needs r/t pressure ulcer on sacrum as evidence by daily protein needs of 86-104g daily for wound healing Nutrition Goal: Intake of 75% or greater of meals to meet increased needs Goal not met. Tube feedings on hold for residuals of 600-650mL overnight. O2 requirements increased. Family members to arrive today with plan for extubation/comfort care. Last recorded weight is 91.8 kg which is down from last review. Bowel Motility: No documented BM. Labs Reviewed: Hgb (8.4), Hct (27.8), BUN (28), Cr (2.0), Na (134), Alb (2.3) Meds Noted: Aztreonam, Lasix, Atrovent, Xopenex, Reglan, Miralax, Vancomycin. MD ordered to hold per tube medications during rounds. Additional Notes: No change in wound reported. Will continue to follow and provide further recommendations, if needed. NPO appropriate with plan for terminal wean. Nutrition Monitoring and Evaluation: Follow up every Thursday/Thursday. Follow daily in ICU rounds.
[2020-03-20] MEDS: MORPHINE SULFATE 10 MG/ML AMP 5 MG IV PUSH (11:29)
--- NOTE | 2020-03-20 12:07 | PC.NURSE ---
Patient extubated at 11:34 by RT Roselyn. Patient at 11:38 with family present in the room. Miky Edwards RN and Philippe Foam Charger discussed arrangements with family.
--- NOTE | 2020-03-20 12:18 | PC.NURSE ---
Morning PO meds not given per Dr. Freeman's instructions as patient was not tolerating tube feeds or any PO meds.
--- NOTE | 2020-03-20 13:04 | PM.DDS ---
Discharge Sum: Prov Provider Primary care physician: Benedicto Burr, Admitting provider: Tianna Larios MD Consults: 03/11/20 Wound/ET Consult Routine Reason for Consult:: Deep tissue injury coccyx 03/14/20 21:41 Consult to Physician Routine Comment: Consulting Provider: Arpita Lancaster teacher physically impaired/MD group to consult: Interventional Cardiology - Dr. Carvajal Reason for consultation: Acute [place] Has provider been notified: Yes 03/14/20 21:43 Consult to Physician Routine Comment: Consulting Provider: Ion Maharaj teacher physically impaired/MD group to consult: Rn Iv Therapy, Dr. Maharaj Reason for consultation: ICU transfser, Acute respiratory failure, Acute [place] Has provider been notified: Yes Discharge Sum: Diag Contributing Factors (1) Acute respiratory failure: (2) Shock: (3) CAD (coronary artery disease): (4) NSTEMI (non-ST elevated myocardial infarction): (5) Elevated troponin: (6) Altered mental status: (7) UTI (urinary tract infection): (8) Fever: Discharge Sum: Summary Date and Time Date of admission: Pt transfered to ICU because of NSTEMI and respiratory distress, pulmonary edema. Pt intubated and had emergent heart cath now having complications with impella inserted. Pt has significant cardiac history of TAVR, hypertension,CABG in 1999 with subsequent stents placement. Last catheterization February 08, [address] Keys and at that time the RAHMAN to LAD was patent Admitted this time with hematuria, UTI ? cdiff infection, which was found to be not true, ? pneumonia, as pt was having ongoing fever. History of fall and history of dementia. Pt is emergently intubated and transfered to ICU for NSTEMI Pt had urgent heart cath. Pt had impella due to cardiogenic shock and impella removed Pt seen by ICU doctor and cardiology Pts heart rate is high Pt is on dobutamine for cardiogenic shock. Unfortunately pt was not improving ongoing fever and tachycardia, see ICU doctors notes for full details. Pt was treated with in icu with vent management and theraphies including iv antibiotics. Unfortunately pt is difficult to wean, family meeting, decided to extube patient. Pt soon after extubation. Additional Data Attending physician: Progress Note: A&P Assessment and Plan (1) Acute respiratory failure: Qualifiers: Respiratory failure complication: unspecified whether with hypoxia or hypercapnia Qualified Code(s): J96.00 - Acute respiratory failure, unspecified whether with hypoxia or hypercapnia Code(s): J96.00 - Acute respiratory failure, unspecified whether with hypoxia or hypercapnia Status: Acute Assessment and Plan: Acute Respiratory failure secondary to Cardiogenic shock, pulmonary edema, question of a pneumonia Pt had impella which is now removed Cardiology and ICU atending are following (2) Shock: Code(s): R57.9 - Shock, unspecified Status: Acute Assessment and Plan: Cardiogenic shock (3) CAD (coronary artery disease): Qualifiers: Coronary Disease-Associated Artery/Lesion type: [place] artery [place] vs. transplanted heart: [place] heart Associated angina: without angina Qualified Code(s): I25.10 - Atherosclerotic heart disease of [place] coronary artery without angina pectoris Code(s): I25.10 - Atherosclerotic heart disease of [place] coronary artery without angina pectoris Status: Chronic Assessment and Plan: Status post cath and PCI to the left main artery with impella placement. On ASA , brilinta and tricor. Impella was removed. (4) NSTEMI (non-ST elevated myocardial infarction): Code(s): I21.4 - Non-ST elevation (NSTEMI) myocardial infarction Status: Acute Assessment and Plan: Pt is sp heart cath and had impella device (5) Elevated troponin: Code(s): R79.89 - Other specified abnormal findings of blood chemistry Status: Acute (6) Altered mental status: Qualifier
== END 2020-03-20 11:38 | disposition expired | DRG 215 ==
LOC: ANHED 17:41 → ANH2MED 17:50 → ANHIMU 19:08 → ANH3MEDSUR 03-12 17:42 → ANHICU 03-16 09:55 → ANH3MEDSUR 03-21 15:32 → ANHICU 03-21 15:32
PROVIDERS: Family Medicine; Internal Medicine; Internal Medicine Cardiovascular Disease; Nurse Practitioner; Physician Assistant; Admitting Provider Family Medicine; Emergency Provider Emergency Medicine; PCP Internal Medicine; Visit Provider Family Medicine
PROC: 4A023N7 Measurement of Cardiac Sampling and Pressure, Left Heart, Percutaneous Approach (ICD-10-PCS; CPT 93452; principal; 2020-03-14 21:40)
PROC: (CPT 92933; 2020-03-14 21:40)
PROC: (CPT 92920; 2020-03-14 21:40)
PROC: (CPT 33979; 2020-03-14 21:40)
DX: I21.4 Non-ST elevation (NSTEMI) myocardial infarction (principal); J96.01 Acute respiratory failure with hypoxia; J81.0 Acute pulmonary edema; J18.9 Pneumonia, unspecified organism; T82.855A Stenosis of coronary artery stent, initial encounter; I25.810 Atherosclerosis of coronary artery bypass graft(s) without angina pectoris; N39.0 Urinary tract infection, site not specified; I13.0 Hypertensive heart and chronic kidney disease with heart failure and stage 1 through stage 4 chronic kidney disease, or unspecified chronic kidney disease; N18.4 Chronic kidney disease, stage 4 (severe); T85.698A Other mechanical complication of other specified internal prosthetic devices, implants and grafts, initial encounter; R57.0 Cardiogenic shock; I25.5 Ischemic cardiomyopathy; I50.9 Heart failure, unspecified; B95.7 Other staphylococcus as the cause of diseases classified elsewhere; E03.9 Hypothyroidism, unspecified; K21.9 Gastro-esophageal reflux disease without esophagitis; E78.5 Hyperlipidemia, unspecified; M19.90 Unspecified osteoarthritis, unspecified site; M10.9 Gout, unspecified; D63.8 Anemia in other chronic diseases classified elsewhere; Z96.643 Presence of artificial hip joint, bilateral; D69.6 Thrombocytopenia, unspecified; Z87.891 Personal history of nicotine dependence; Z95.2 Presence of prosthetic heart valve; Z95.5 Presence of coronary angioplasty implant and graft; Z95.1 Presence of aortocoronary bypass graft; Z85.828 Personal history of other malignant neoplasm of skin; I25.2 Old myocardial infarction; Z79.82 Long term (current) use of aspirin; Z86.73 Personal history of transient ischemic attack (TIA), and cerebral infarction without residual deficits; Z91.81 History of falling
CPT/HCPCS: 31500; 33990; 36415; 36430; 36600; 70450; 71045; 72125; 74018; 74019; 80048; 80053; 80202; 81001; 82375; 82805; 83050; 83605; 83735; 83880; 84443; 84484; 85014; 85018; 85025; 85027; 85049; 85380; 85384; 85610; 85730; 86140; 86850; 86900; 86901; 86923; 87040; 87070; 87077; 87086; 87088; 87186; 87205; 87324; 87493; 92507; 92526; 92610; 92611; 92920; 92978; 93005; 93458; 94002; 94003; 94640; 96365; 96366; 96367; 96375; 97110; 97161; 97165; 99284; 99285; A9270; C1725; C1753; C1757; C1769; C1874; C1887; C1894; C9113; C9600; G0378; J0330; J0461; J0583; J0696; J0744; J1200; J1250; J1327; J1644; J1650; J1940; J2060; J2250; J2270; J2370; J2765; J3010; J3370; J3475; J3480; J7030; J7040; J7050; J7060; J7070; P9016; P9047